=== PATIENT | male | born 1930 | race Caucasian/White ===

== ENCOUNTER 2016-06-26 09:11 | Emergency (ER) | payer MEDICARE ==
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
[2016-06-26] MEDS ORDERED: LIDOCAINE 1% INJ-PF (10 MG/ML) 30 ML SDV INJ ONE (10:30)
[2016-06-26] MEDS ORDERED: LIDOCAINE 1%/EPINEPHRINE INJ 20 ML VIAL INJ ONE (10:32)
[2016-06-26 10:42] LABS: ABSOLUTE EOSINOPHILS # (AUTO) 0.1 10^3/uL (0.0-0.6); ABSOLUTE LYMPHOCYTES (AUTO) 0.8 10^3/uL (0.5-4.7); ABSOLUTE MONOCYTES (AUTO) 0.5 10^3/uL (0.1-1.4); ABSOLUTE NEUT (AUTO) 6.7 10^3/uL (1.7-8.2); BASOPHILS % (AUTO) 0.2 % (0-2); EOSINOPHILS % (AUTO) 1.1 % (0-6); HEMATOCRIT 36.4 % (37.9-51.0); HEMOGLOBIN 11.8 g/dL (13.5-17.0); MEAN CORPUSCULAR HEMOGLOBIN 29.9 pg (27.0-33.4); MEAN CORPUSCULAR HGB CONC 32.4 g/dL (32.0-36.0); MEAN CORPUSCULAR VOLUME 93 fl (80-97); MONOCYTES % (AUTO) 6.7 % (3-13); RED BLOOD COUNT 3.93 10^6/uL (4.35-5.55); RED CELL DISTRIBUTION WIDTH 15.6 % (11.5-14.0); WHITE BLOOD COUNT 8.1 10^3/uL (4.0-10.5)
[2016-06-26 11:04] LABS: ANION GAP 12 (5-19); BLOOD UREA NITROGEN 45 mg/dL (7-20); CARBON DIOXIDE 21 mmol/L (22-30); CHLORIDE 113 mmol/L (98-107); CREATININE RESULT 2.34 mg/dL (0.52-1.25); GLUCOSE 77 mg/dL (75-110); POTASSIUM 4.2 mmol/L (3.6-5.0); SODIUM 145.9 mmol/L (137-145)
[2016-06-26 13:14] VITALS: BP 155/98
== END 2016-06-26 13:28 | disposition home or self-care (01) ==
LOC: ER 09:11
PROC: 0HQ0XZZ Repair Scalp Skin, External Approach (ICD-10-PCS; principal; 2016-06-26)
DX: S01.01XA Laceration without foreign body of scalp, initial encounter (principal); M25.511 Pain in right shoulder; W01.198A Fall on same level from slipping, tripping and stumbling with subsequent striking against other object, initial encounter; Y92.009 Unspecified place in unspecified non-institutional (private) residence as the place of occurrence of the external cause; M47.9 Spondylosis, unspecified; F03.90 Unspecified dementia, unspecified severity, without behavioral disturbance, psychotic disturbance, mood disturbance, and anxiety; I10 Essential (primary) hypertension; Z79.82 Long term (current) use of aspirin; Z23 Encounter for immunization
CPT/HCPCS: 99284; 36415; 85025; 80048; 73030; 70450; 72125; 12001; J3490

== ENCOUNTER 2016-07-01 11:46 | Inpatient (IN) | payer MEDICARE ==
[2016-06-30] MEDS: HEPARIN SOD (PORCINE) 5,000 UNIT/ML 1 ML SYRINGE SUBCUT SCH (23:30)
--- NOTE | 2016-07-01 13:01 | ER Document Report ---
ED General - General Time seen by provider: 12:50 Mode of Arrival: Wheelchair Information source: Patient, Relative TRAVEL OUTSIDE OF THE [place] IN LAST 30 DAYS: No - HPI Onset: Other - see history of present illness <FABIANO PANDEY - Last Filed: 07/01/16 13:24> <BREANNA HARRISON - Last Filed: 07/01/16 16:00> - General Chief Complaint: Fall Stated Complaint: FALL LEG PAIN Notes: Patient is an 85-year-old male presenting to the emergency department with family members with complaints of dark and bloody urine and edema to the lower extremities bilaterally. Patient was recently seen here on 03/10 and was admitted for a UTI and altered mental status. Patient was discharged and sent to [facility] for rehabilitation on 03/15. Patient was not happy due to the cost of [place] and family was working to transfer him to [facility]. Patient was waiting for a room at [place] and got tired of waiting so he signed himself out of [facility] and his family members took him home. Patient has resided at his house by himself for the past 20+ years since his . Patient has been at home for the past 2 weeks with family members checking in on him; patient has not been properly caring for himself, his hygiene, or for his legs. Patient was seen in the ED 5 days ago due to a fall that he had at his home; patient received sutures for a laceration to his head. Patient's family members would like him to go to [facility] because over the past couple of years his ability to care for himself has become less and less. Patient is slightly demented and has not been showering as frequent recently due to the condition of his lower extremities. Patient is also hard of hearing and patient's family members state that he refuses to wear his hearing aids. Patient's PCP is Dr. Dutta in [place]. Patient has no known allergies. (FABIANO PANDEY) - Related Data Allergies/Adverse Reactions: No Known Allergies Allergy (Unverified 09/22/10 10:45) Past Medical History - General Information source: Patient, Relative - Social History Smoking Status: Former Smoker Cigarette use (# per day): No Chew tobacco use (# tins/day): No Frequency of alcohol use: None Drug Abuse: None Family History: None - Past Medical History Cardiac Medical History: Reports: Hx Hypercholesterolemia, Hx Hypertension Pulmonary Medical History: Renal/ Medical History: Reports: Hx End Stage Renal Disease Musculoskeltal Medical History: Reports Hx Arthritis, Reports Hx Gout Past Surgical History: Reports: Hx Orthopedic Surgery - knee replacement b/l <FABIANO PANDEY Filed: 07/01/16 13:24> Review of Systems - Review of Systems Constitutional: No symptoms reported EENT: No symptoms reported Cardiovascular: No symptoms reported Respiratory: No symptoms reported Gastrointestinal: No symptoms reported Genitourinary: See HPI Male Genitourinary: No symptoms reported Musculoskeletal: See HPI Skin: See HPI Hematologic/Lymphatic: No symptoms reported Neurological/Psychological: See HPI, Dementia -: Yes All other systems reviewed and negative <FABIANO PANDEY Filed: 07/01/16 13:24> Physical Exam - Vital signs Interpretation: Normal - General General appearance: Appears well, Alert In distress: Mild - HEENT Head: Normocephalic, Atraumatic Eyes: Normal Pupils: PERRL Hearing loss: Left - supposed to wear hearing aid, Right Mucous membranes: Normal - Respiratory Respiratory status: No respiratory distress Chest status: Nontender Breath sounds: Normal Chest palpation: Normal - Cardiovascular Rhythm: Regular Heart sounds: Normal auscultation Murmur: No - Abdominal Inspection: Normal Distension: No distension Bowel sounds: Normal Tenderness: Nontender Organomegaly: No organomegaly - Back Back: Normal, Nontender - Extremities General upper extremity: Other - some arthritic changes to the fingers, wrists General lower extremity: Other - some arthritic changes to the knees; swelling and pain to the calfs bilaterally consistent with chronic edema and erythema- right leg is more swollen, more red, and has more sores than the left leg - Neurological Neuro grossly intact: Yes Cognition: Normal Vera Coma Scale Eye Opening: Spontaneous [place] Coma Scale Verbal: Oriented [place] Coma Scale Motor: Obeys Commands [place] Coma Scale Total: 15 Speech: Normal - Psychological Associated symptoms: Normal affect, Normal mood, Other - slightly demented - Skin Skin Temperature: Warm Skin Moisture: Dry Skin Color: Normal <FABIANO PANDEY Filed: 07/01/16 13:24> Course - Laboratory Result Diagrams: 07/01/16 12:42 07/01/16 12:42 <FABIANO PANDEY - Last Filed: 07/01/16 13:24> - Laboratory Result Diagrams: 07/01/16 12:42 07/01/16 12:42 - EKG Interpretation by Me EKG shows normal: Sinus rhythm, [place], Intervals, QRS Complexes, ST-T Waves Rate: Normal - 89 Rhythm: NSR, APC's [place]/QRS: LBBB When compared to previous EKG there are: No significant change - Consults Dr. Barrientos Time consulted: 15:55 Consulted provider: will come to ER <BREANNA HARRISON - Last Filed: 07/01/16 16:00> - Re-evaluation Re-evalutation: 07/01/16 15:44 The PCT reports he tried to do an in and out catheter to obtain a urine on this patient, that he had a large amount of blood coming out of the tube before it was in the bladder, he removed the tube and the patient began urinating first bloody, then it cleared up and a urine collection that appeared clear was obtained. It appears that a vessel in the urethra was traumatized and led to the bleeding most likely. The UA itself has 1 white blood cell, trace bacteria , 152 red cells and leukocyte esterase negative and nitrite negative. (BREANNA HARRISON) - Vital Signs Vital signs: Temp Pulse Resp BP Pulse Ox 98.4 F 79 166/82 H 99 07/01/16 12:41 07/01/16 12:41 07/01/16 12:41 07/01/16 12:41 (FABIANO PANDEY) (BREANNA HARRISON) - Laboratory Laboratory results interpreted by me: 07/01/16 07/01/16 07/01/16 12:42 12:42 13:40 RBC 3.70 L Hgb 10.7 L Hct 34.9 L MCHC 30.8 L RDW 15.5 H Sodium 145.1 H Chloride 113 H Carbon Dioxide 21 L BUN 38 H Creatinine 2.34 H Est GFR ( Amer) 32 L Est GFR (Non-Af Amer) 27 L ALT 19 L Total Protein 6.1 L Albumin 2.9 L Urine Protein 30 H Urine Blood LARGE H (BREANNA HARRISON) Discharge <FABIANO PANDEY - Last Filed: 07/01/16 13:24> - Discharge Admitting Provider: Hospitalist Unit Admitted: Medical Floor <BREANNA HARRISON - Last Filed: 07/01/16 16:00> - Discharge Clinical Impression: CKD (chronic kidney disease) stage 4, GFR 15-29 ml/min Cellulitis Qualifiers: Site of cellulitis: extremity Site of cellulitis of extremity: lower extremity Laterality: right Qualified Code(s): L03.115 - Cellulitis of right lower limb Dementia Qualifiers: Dementia type: unspecified type Dementia behavioral disturbance: without behavioral disturbance Qualified Code(s): F03.90 - Unspecified dementia without behavioral disturbance Condition: Stable Disposition: ADMITTED INPATIENT Referrals: LUI DUTTA MD [Primary Care Provider] - Follow up as needed Scribe Attestation: 07/01/16 16:00 I personally performed the services described in the documentation, reviewed and edited the documentation which was dictated to the scribe in my presence, and it accurately records my words and actions. (BREANNA HARRISON) Scribe Documentation <FABIANO PANDEY - Last Filed: 07/01/16 13:24> <BREANNA HARRISON - Last Filed: 07/01/16 16:00> - Scribe Written by Scribe:: BREANNA HARRISON MD, SCRIBE 07/01/16 [id number] Acting as scribe for: Dr. Harrison (FABIANO PANDEY) (BREANNA HARRISON)
[2016-07-01 13:18] LABS: ABSOLUTE EOSINOPHILS # (AUTO) 0.1 10^3/uL (0.0-0.6); ABSOLUTE LYMPHOCYTES (AUTO) 1.3 10^3/uL (0.5-4.7); ABSOLUTE MONOCYTES (AUTO) 0.8 10^3/uL (0.1-1.4); ABSOLUTE NEUT (AUTO) 5.4 10^3/uL (1.7-8.2); BASOPHILS % (AUTO) 0.3 % (0-2); EOSINOPHILS % (AUTO) 1.6 % (0-6); HEMATOCRIT 34.9 % (37.9-51.0); HEMOGLOBIN 10.7 g/dL (13.5-17.0); HGB HCT DIFFERENCE -2.8; LYMPHOCYTES % (AUTO) 16.6 % (13-45); MEAN CORPUSCULAR HGB CONC 30.8 g/dL (32.0-36.0); MEAN CORPUSCULAR VOLUME 94 fl (80-97); MONOCYTES % (AUTO) 10.2 % (3-13); RED CELL DISTRIBUTION WIDTH 15.5 % (11.5-14.0); SEGMENTED NEUTROPHILS % (AUTO) 71.3 % (42-78); WHITE BLOOD COUNT 7.6 10^3/uL (4.0-10.5)
[2016-07-01 13:38] LABS: ALANINE AMINOTRANSFERASE 19 U/L (21-72); ALBUMIN 2.9 g/dL (3.5-5.0); ALKALINE PHOSPHATASE 87 U/L (38-126); ANION GAP 11 (5-19); ASPARTATE AMINO TRANSFERASE 25 U/L (17-59); BILIRUBIN,TOTAL 0.5 mg/dL (0.2-1.3); BLOOD UREA NITROGEN 38 mg/dL (7-20); CALCIUM 8.5 mg/dL (8.4-10.2); CARBON DIOXIDE 21 mmol/L (22-30); CHLORIDE 113 mmol/L (98-107); CREATINE KINASE 164 U/L (55-170); CREATININE RESULT 2.34 mg/dL (0.52-1.25); GLUCOSE 96 mg/dL (75-110); POTASSIUM 3.8 mmol/L (3.6-5.0); SODIUM 145.1 mmol/L (137-145); TOTAL PROTEIN 6.1 g/dL (6.3-8.2)
[2016-07-01 14:14] LABS: APPEARANCE,URINE SLIGHTLY-CLOUDY; BILIRUBIN,URINE NEGATIVE (NEGATIVE); GLUCOSE, URINE NEGATIVE (NEGATIVE); KETONES,URINE NEGATIVE (NEGATIVE); LEUKOCYTE ESTERASE,URINE NEGATIVE (NEGATIVE); NITRITE,URINE NEGATIVE (NEGATIVE); PROTEIN,URINE 30 mg/dL (NEGATIVE); URINE SPECIFIC GRAVITY 1.015; UROBILINOGEN,URINE NEGATIVE mg/dL (<2.0)
[2016-07-01] MEDS ORDERED: MORPHINE SULFATE 10 MG/ML INJ IV ONE (14:35)
[2016-07-01] MEDS ORDERED: ONDANSETRON HCL INJ/PF 4 MG/2 ML SDV IV ONE (14:35)
[2016-07-01] MEDS ORDERED: CLINDAMYCIN 300 MG/D5W RTU 50 ML IV ONE (15:57)
[2016-07-01] MEDS ORDERED: HYDRALAZINE HCL INJ/PF 20 MG/1 ML SDV IV PRN (16:55)
[2016-07-01] MEDS ORDERED: ONDANSETRON HCL INJ/PF 4 MG/2 ML SDV IV PRN (16:59)
[2016-07-01] MEDS ORDERED: ACETAMINOPHEN 325 MG TABLET PO PRN (16:59)
--- NOTE | 2016-07-01 17:17 | PDOC H&P ---
History of Present Illness Admission Date/PCP: 07/01/16 16:19 LUI DUTTA MD Patient complains of: Bilateral leg pain History of Present Illness: TERE QUEEN is a 85 year old male that presents with bilateral lower extremity pain and swelling. It is unclear how long this is been going on as patient has profound hearing loss and dementia and does not provide adequate history. Family is not present. According to emergency department provider he found that patient has been living alone and family was concerned about the situation and was looking for assisted living facility. It is noted that patient sustained a fall on 06/26/2016 with a scalp contusion/ laceration. He has gosia in place. Medications listed below have not been verified at the time of this documentation. Past Medical History Cardiac Medical History: Reports: Hyperlipidema, Hypertension Pulmonary Medical History: Neurological Medical History: Denies: Seizures Renal/ Medical History: Reports: Chronic Kidney Disease - Stage IV Musculoskeltal Medical History: Reports: Arthritis, Gout Psychiatric Medical History: Reports: Dementia Denies: Depression Hematology: Denies: Anemia, Hemophilia, Sickle Cell Disease Past Surgical History Past Surgical History: Reports: Orthopedic Surgery - knee replacement b/l Social History Information Source: Patient, Emergency Med Personnel, [facility] Records Smoking Status: Former Smoker Frequency of Alcohol Use: None Hx Recreational Drug Use: No Drugs: None Hx Prescription Drug Abuse: No - Advance Directive Resuscitation Status: Full Code Surrogate healthcare decision maker:: Albertina Lopez Family History Family History: None Parental Family History Reviewed: Yes Children Family History Reviewed: Yes Sibling(s) Family History Reviewed.: Yes Medication/Allergy Home Medications: Atorvastatin Calcium [Lipitor] 10 mg PO QHS 07/27/15 Cholecalciferol (Vitamin D3) [Vitamin D3] 1,000 unit PO DAILY 07/27/15 Ferrous Sulfate [Iron] 325 mg PO DAILY 07/27/15 Tamsulosin HCl [Flomax 0.4 mg Cap.sr] 0.4 mg PO QHS 07/27/15 Torsemide [Demadex 20 mg Tablet] 10 mg PO DAILY tablet 08/02/15 Quetiapine Fumarate 25 mg PO QHS 03/10/16 Allopurinol [Zyloprim 300 mg Tablet] 100 mg PO DAILY #30 tablet 03/14/16 Amlodipine Besylate [Norvasc 2.5 mg Tablet] 2.5 mg PO DAILY #30 tablet 03/14/16 Aspirin [Ecotrin 325 mg EC Tablet] 81 mg PO DAILY #0 tabec 03/14/16 Calcitriol [Rocaltrol 0.25 mcg Capsule] 0.5 mcg PO MoWeFr@1000 #90 capsule 03/14 Cephalexin Monohydrate [Keflex 500 mg Capsule] 500 mg PO Q8 #30 capsule Cyanocobalamin (Vitamin B-12) [Vitamin B-12] 1,000 mcg PO DAILY #30 tablet.er Allergies/Adverse Reactions: No Known Allergies Allergy (Unverified 09/22/10 10:45) Review of Systems Constitutional: ABSENT: chills, fever(s), headache(s), weight gain, weight loss Eyes: ABSENT: visual disturbances Ears: PRESENT: hearing changes - Significant hearing impairment Cardiovascular: PRESENT: edema. ABSENT: chest pain, dyspnea on exertion, orthropnea, palpitations Respiratory: ABSENT: cough, hemoptysis Gastrointestinal: ABSENT: abdominal pain, constipation, diarrhea, hematemesis, hematochezia, nausea, vomiting Genitourinary: ABSENT: dysuria, hematuria Musculoskeletal: ABSENT: joint swelling Integumentary: PRESENT: erythema - Bilateral lower extremities, wounds - Multiple excoriated lesions on bilateral lower extremities. ABSENT: rash Neurological: ABSENT: abnormal gait, abnormal speech, confusion, dizziness, focal weakness, syncope Psychiatric: ABSENT: anxiety, depression, homidical ideation, suicidal ideation Endocrine: ABSENT: cold intolerance, heat intolerance, polydipsia, polyuria Hematologic/Lymphatic: ABSENT: easy bleeding, easy bruising Physical Exam Vital Signs: Temp Pulse Resp BP Pulse Ox 99.0 F 84 20 165/81 H 96 07/01/16 16:32 07/01/16 16:32 07/01/16 16:32 07/01/16 16:32 07/01/16 16:32 PHYSICAL EXAM: GENERAL: Appears well, no acute distress, extremely hard of hearing HEENT: Normocephalic, no scleral icterus, conjunctiva clear, EOEM intact, PERRLA , moist mucous membranes NECK: trachea midline, no thyromegally RESPIRATORY: Clear to auscultation, no wheezes/rhonchi CARDIAC: Irregularly irregular ABDOMEN: Soft, no distension, no tenderness, no guarding, normal bowel sounds, negative Anderson sign RECTAL: deferred : deferred EXTREMITIES: Pitting edema and bilateral lower extremities MUSCULOSKELETAL: No joint swelling or deformity VASCULAR: normal peripheral pulses NEUROLOGIC: Alert, oriented to person only, normal speech, cranial nerves grossly intact, 5/5 strength in all extremities, tactile sensation intact in all extremities SKIN: Erythema in bilateral lower extremities distal to the knees, multiple excoriated lesions on bilateral lower extremities PSYCHIATRIC: Normal mood, normal affect Results Laboratory Results: Labs- All tests 24 hr 07/01/16 07/01/16 07/01/16 12:42 12:42 12:42 WBC 7.6 RBC 3.70 L Hgb 10.7 L Hct 34.9 L MCV 94 MCH 29.0 MCHC 30.8 L RDW 15.5 H Plt Count 187 Seg Neutrophils % 71.3 Lymphocytes % 16.6 Monocytes % 10.2 Eosinophils % 1.6 Basophils % 0.3 Absolute Neutrophils 5.4 Absolute Lymphocytes 1.3 Absolute Monocytes 0.8 Absolute Eosinophils 0.1 Absolute Basophils 0.0 Sodium 145.1 H Potassium 3.8 Chloride 113 H Carbon Dioxide 21 L Anion Gap 11 BUN 38 H Creatinine 2.34 H Est GFR ( Amer) 32 L Est GFR (Non-Af Amer) 27 L Glucose 96 Calcium 8.5 Total Bilirubin 0.5 Direct Bilirubin 0.0 AST 25 ALT 19 L Alkaline Phosphatase 87 Creatine Kinase 164 Troponin I 0.036 Total Protein 6.1 L Albumin 2.9 L Urine Color Urine Appearance Urine pH Ur Specific [place] Urine Protein Urine Glucose (UA) Urine Ketones Urine Blood Urine Nitrite Urine Bilirubin Urine Urobilinogen Ur Leukocyte Esterase Urine WBC (Auto) Urine RBC (Auto) Urine Bacteria (Auto) Squamous Epi Cells Auto Urine Mucus (Auto) Urine Ascorbic Acid 07/01/16 13:40 WBC RBC Hgb Hct MCV MCH MCHC RDW Plt Count Seg Neutrophils % Lymphocytes % Monocytes % Eosinophils % Basophils % Absolute Neutrophils Absolute Lymphocytes Absolute Monocytes Absolute Eosinophils Absolute Basophils Sodium Potassium Chloride Carbon Dioxide Anion Gap BUN Creatinine Est GFR ( Amer) Est GFR (Non-Af Amer) Glucose Calcium Total Bilirubin Direct Bilirubin AST ALT Alkaline Phosphatase Creatine Kinase Troponin I Total Protein Albumin Urine Color YELLOW Urine Appearance SLIGHTLY-CLOUDY Urine pH 5.0 Ur Specific [place] 1.015 Urine Protein 30 H Urine Glucose (UA) NEGATIVE Urine Ketones NEGATIVE Urine Blood LARGE H Urine Nitrite NEGATIVE Urine Bilirubin NEGATIVE Urine Urobilinogen NEGATIVE Ur Leukocyte Esterase NEGATIVE Urine WBC (Auto) 1 Urine RBC (Auto) 152 Urine Bacteria (Auto) TRACE Squamous Epi Cells Auto <1 Urine Mucus (Auto) RARE Urine Ascorbic Acid NEGATIVE EKG Comments: Atrial fibrillation, left bundle branch block Assessment & Plan - Diagnosis (1) SIRS (systemic inflammatory response syndrome) Is this a current diagnosis for this admission?: YesPlan: Secondary to bilateral lower extremity cellulitis. (2) Cellulitis Qualifiers: Site of cellulitis: extremity Site of cellulitis of extremity: lower extremity Laterality: right Qualified Code(s): L03.115 - Cellulitis of right lower limb Is this a current diagnosis for this admission?: YesPlan: Patient will be continued on IV clindamycin initiated in the emergency department. Would like to check bilateral lower extremity Doppler to rule out DVT. (3) Bilateral lower extremity edema Is this a current diagnosis for this admission?: YesPlan: Check proBNP level, echocardiogram, bilateral lower extremity Dopplers. Start Lasix 20 mg IV every 12 hours. (4) Chronic atrial fibrillation Is this a current diagnosis for this admission?: YesPlan: Heart rate stable. Verify home medications and resume. (5) Dementia Qualifiers: Dementia type: unspecified type Dementia behavioral disturbance: without behavioral disturbance Qualified Code(s): F03.90 - Unspecified dementia without behavioral disturbance Is this a current diagnosis for this admission?: YesPlan: Continue supportive care. Patient has been residing at home. According to emergency department staff family is looking for assisted living facility. I will consult social studies department chair. (6) Laceration of head Qualifiers: Encounter type: initial encounter Location of open wound of head: scalp Foreign body presence: without foreign body Qualified Code(s): S01.01XA - Laceration without foreign body of scalp, initial encounter Is this a current diagnosis for this admission?: YesPlan: Patient had gosia placed on 06/26/2016. Staple removal on 07/06/2016. (7) Vitamin B 12 deficiency Is this a current diagnosis for this admission?: YesPlan: Check B-12 level in the morning. (8) CKD (chronic kidney disease) stage 4, GFR 15-29 ml/min Is this a current diagnosis for this admission?: YesPlan: Kidney functions at baseline. Monitor closely with diuresis. (9) Hypertension Is this a current diagnosis for this admission?: YesPlan: Verify home medications and resume. When necessary IV hydralazine. (10) Full code status Is this a current diagnosis for this admission?: Yes - Time Time Spent: Greater than 70 Minutes Anticipated discharge: Other - Assisted living facility
--- NOTE | 2016-07-01 18:35 | EKG REPORT ---
SEVERITY:- ABNORMAL ECG - ATRIAL FIBRILLATION LEFT BUNDLE BRANCH BLOCK INFERIOR Q WAVES, POSSIBLY DUE TO LBBB : Confirmed by: Lavonne Hercules MD 01-Jul-2016 18:34:11
[2016-07-01] MEDS: FUROSEMIDE INJ/PF 20 MG/2 ML SDV IV SCH (23:03)
[2016-07-02 05:04] LABS: ABSOLUTE EOSINOPHILS # (AUTO) 0.4 10^3/uL (0.0-0.6); ABSOLUTE LYMPHOCYTES (AUTO) 1.8 10^3/uL (0.5-4.7); ABSOLUTE MONOCYTES (AUTO) 0.9 10^3/uL (0.1-1.4); ABSOLUTE NEUT (AUTO) 4.9 10^3/uL (1.7-8.2); BASOPHILS % (AUTO) 0.4 % (0-2); HEMATOCRIT 32.2 % (37.9-51.0); HEMOGLOBIN 10.2 g/dL (13.5-17.0); HGB HCT DIFFERENCE -1.6; LYMPHOCYTES % (AUTO) 21.9 % (13-45); MEAN CORPUSCULAR HEMOGLOBIN 29.6 pg (27.0-33.4); MEAN CORPUSCULAR HGB CONC 31.6 g/dL (32.0-36.0); MEAN CORPUSCULAR VOLUME 94 fl (80-97); MONOCYTES % (AUTO) 11.5 % (3-13); RED BLOOD COUNT 3.43 10^6/uL (4.35-5.55); RED CELL DISTRIBUTION WIDTH 15.6 % (11.5-14.0); SEGMENTED NEUTROPHILS % (AUTO) 61.2 % (42-78)
[2016-07-02 05:30] LABS: ANION GAP 10 (5-19); BLOOD UREA NITROGEN 35 mg/dL (7-20); CALCIUM 8.4 mg/dL (8.4-10.2); CARBON DIOXIDE 20 mmol/L (22-30); CHLORIDE 115 mmol/L (98-107); GLUCOSE 80 mg/dL (75-110); POTASSIUM 3.6 mmol/L (3.6-5.0); SODIUM 145.2 mmol/L (137-145)
[2016-07-02] MEDS ORDERED: CLINDAMYCIN 300 MG/D5W RTU 300 MG/50 ML RTUPB IV ONE (05:56)
[2016-07-02] MEDS: HEPARIN SOD (PORCINE) 5,000 UNIT/ML 1 ML SYRINGE SUBCUT SCH ×3 (06:29→23:27)
[2016-07-02] MEDS: CLINDAMYCIN 300 MG/D5W RTU 300 MG/50 ML RTUPB IV SCH ×3 (06:30→23:27)
[2016-07-02] MEDS: FUROSEMIDE INJ/PF 20 MG/2 ML SDV IV SCH ×2 (09:17→23:19)
--- NOTE | 2016-07-02 13:40 | XCELERA REPORT ---
[address] [address] Transthoracic Echocardiogram Report Name: TERE QUEEN Age: 85 yrs Gender: Male : 1930 Patient Status: Inpatient Patient Location: [id number] Study Date: 07/02/2016 10:40 AM Height: 72 in Weight: 174 lb BSA: 2.0 m2 Procedure: A complete two-dimensional transthoracic echocardiogram was performed (2D, M-mode, spectral and color flow Doppler). The study was technically adequate with some images being suboptimal in quality. Reason For Study: edema Ordering Physician: AMILCAR BROWN Performed By: Robbie Franz Interpretation Summary The left ventricular ejection fraction is normal. Doppler measurements suggest pseudonormalized left ventricular relaxation, which is associated with grade II/IV or mild to moderate diastolic dysfunction There is mild concentric left ventricular hypertrophy. The left ventricle is grossly normal size. Wall motion cannot be accurately commented on, but no definite regional wall motion abnormalities noted. The right ventricular systolic function is normal. The right atrium is normal in size The left atrium is mildly dilated. There is no mitral valve stenosis. There is a trace amount of mitral regurgitation There is no aortic valve stenosis There is a mild amount of aortic regurgitation There is a trace to mild amount of tricuspid regurgitation There is mild pulmonary hypertension by echo Right ventricular systolic pressure is estimated to be elevated at 30- 40mmHg. The aortic root is not well visualized but is probably normal size. The inferior vena cava appeared dilated and decreased < 50% with respiration (RAP 15-20 mmHg) Minimal pericardial effusion. MMode/2D Measurements \T\ Calculations RVDd: 3.1 cm LVIDd: 4.7 cm FS: 33.7 % Ao root diam: 3.8 cm IVSd: 1.3 cm LVIDs: 3.1 cm EDV(Teich): 99.9 ml LVPWd: 1.4 cm ESV(Teich): 37.4 ml Ao root area: 11.4 cm2 EF(Teich): 62.5 % LA dimension: 3.8 cm Doppler Measurements \T\ Calculations MV E max mayank: MV P1/2t max mayank: Ao V2 max: AI max mayank: 99.3 cm/sec 101.8 cm/sec 168.9 cm/sec 406.0 cm/sec MV A max mayank: MV P1/2t: 90.8 msec Ao max PG: AI max P.1 cm/sec 11.4 mmHg 66.2 mmHg MV E/A: 0.71 MVA(P1/2t): 2.4 cm2 AI dec slope: MV dec slope: 328.3 cm/sec2 246.8 cm/sec2 MV dec time: AI P1/2t: 0.30 sec 481.7 msec LV V1 max PG: PA V2 max: PI end-d mayank: TR max mayank: 7.4 mmHg 100.6 cm/sec 111.0 cm/sec 244.9 cm/sec LV V1 max: PA max P.0 mmHg TR max P.7 cm/sec 24.0 mmHg RVSP(TR): 34.0 mmHg RAP systole: 10.0 mmHg Left Ventricle The left ventricle is grossly normal size. There is mild concentric left ventricular hypertrophy. The left ventricular ejection fraction is normal. Doppler measurements suggest pseudonormalized left ventricular relaxation, which is associated with grade II/IV or mild to moderate diastolic dysfunction. Wall motion cannot be accurately commented on, but no definite regional wall motion abnormalities noted. Right Ventricle The right ventricle is normal in size, thickness and function. There is normal right ventricular wall thickness. The right ventricular systolic function is normal. Atria The right atrium is normal in size. The left atrium is mildly dilated. Interarterial septum not well visualized and not well dopplered. Cannot comment on ASD/PFO presence. Mitral Valve The mitral valve is grossly normal. There is no mitral valve stenosis. There is a trace amount of mitral regurgitation. Aortic Valve The aortic valve is mildly calcified. There is no aortic valve stenosis. There is a mild amount of aortic regurgitation. Tricuspid Valve The tricuspid valve is not well visualized, but is grossly normal. There is no tricuspid stenosis. There is a trace to mild amount of tricuspid regurgitation. There is mild pulmonary hypertension by echo. Right ventricular systolic pressure is estimated to be elevated at 30-40mmHg. Pulmonic Valve The pulmonic valve is not well visualized. Great Vessels The aortic root is not well visualized but is probably normal size. The inferior vena cava appeared dilated and decreased < 50% with respiration (RAP 15-20 mmHg). Effusions Minimal pericardial effusion. : AMILCAR BRWON > Eleazar Bhatti
[2016-07-02] MEDS ORDERED: HYDROCODONE/ACETAMINOPHEN 7.5-325 MG TABLET PO PRN ×2 (15:34→16:31)
--- NOTE | 2016-07-02 17:10 | PDOC PROGRESS REPORT ---
Subjective Progress Note for:: 07/02/16 Subjective:: No issues reported. Patient with no complaints, however review of systems difficult secondary to significant hearing impairment. Physical Exam Vital Signs: Temp Pulse Resp BP Pulse Ox 98.1 F 66 16 165/86 H 100 07/02/16 13:06 07/02/16 13:06 07/02/16 13:06 07/02/16 13:06 07/02/16 13:06 Intake & Output 07/01/16 07/02/16 07/03/16 06:59 06:59 06:59 Intake Total 50 717 Balance 50 717 Weight 79.1 kg GENERAL: Appears well, no acute distress, extremely hard of hearing HEENT: Normocephalic, moist mucous membranes NECK: trachea midline, no thyromegally RESPIRATORY: Clear to auscultation, no wheezes/rhonchi CARDIAC: Irregularly irregular ABDOMEN: Soft, no distension, no tenderness, no guarding, normal bowel sounds, negative Anderson sign EXTREMITIES: Pitting edema and bilateral lower extremities MUSCULOSKELETAL: No joint swelling or deformity VASCULAR: normal peripheral pulses NEUROLOGIC: Alert, oriented to person only, normal speech, cranial nerves grossly intact, 5/5 strength in all extremities, tactile sensation intact in all extremities SKIN: Erythema in bilateral lower extremities distal to the knees, multiple excoriated lesions on bilateral lower extremities PSYCHIATRIC: Normal mood, normal affect Results Laboratory Results: 07/02/16 04:44 07/02/16 04:44 07/02/16 07/02/16 07/02/16 04:44 04:44 04:44 WBC 8.0 RBC 3.43 L Hgb 10.2 L Hct 32.2 L MCV 94 MCH 29.6 MCHC 31.6 L RDW 15.6 H Plt Count 180 Seg Neutrophils % 61.2 Lymphocytes % 21.9 Monocytes % 11.5 Eosinophils % 5.0 Basophils % 0.4 Absolute Neutrophils 4.9 Absolute Lymphocytes 1.8 Absolute Monocytes 0.9 Absolute Eosinophils 0.4 Absolute Basophils 0.0 Sodium 145.2 H Potassium 3.6 Chloride 115 H Carbon Dioxide 20 L Anion Gap 10 BUN 35 H Creatinine 2.20 H Est GFR ( Amer) 35 L Est GFR (Non-Af Amer) 29 L Glucose 80 Calcium 8.4 Vitamin B12 > 1000.0 H TSH 2.97 Impressions: Venous Doppler Study 07/01/16 00:00 IMPRESSION: NO EVIDENCE DVT OR SVT IN EITHER LEG. Chest X-Ray 07/01/16 16:56 IMPRESSION: Low lung volumes results in bronchovascular crowding. No focal consolidation. Grossly stable radiographic appearance of the chest. Assessment & Plan - Diagnosis (1) SIRS (systemic inflammatory response syndrome) Is this a current diagnosis for this admission?: YesPlan: Secondary to bilateral lower extremity cellulitis. (2) Cellulitis Qualifiers: Site of cellulitis: extremity Site of cellulitis of extremity: lower extremity Laterality: right Qualified Code(s): L03.115 - Cellulitis of right lower limb Is this a current diagnosis for this admission?: YesPlan: Continue IV clindamycin. Possibly convert to oral clindamycin in the next few days. Bilateral lower extremity Dopplers negative for DVT. (3) Acute diastolic (congestive) heart failure Is this a current diagnosis for this admission?: YesPlan: Echocardiogram shows normal ejection fraction, grade 2/4 diastolic dysfunction. Continue Lasix 20 mg IV every 12 hours. Start Coreg 6.25 mg twice daily. Monitor I/O. Monitor daily weight. (4) Bilateral lower extremity edema Is this a current diagnosis for this admission?: YesPlan: Secondary to acutely decompensated congestive heart failure. Continue Lasix 20 mg IV every 12 hours. (5) Chronic atrial fibrillation Is this a current diagnosis for this admission?: YesPlan: Heart rate stable. Continue aspirin. Patient would not make a good candidate for anticoagulation secondary to age, comorbid conditions, history of recent falls. (6) Dementia Qualifiers: Dementia type: unspecified type Dementia behavioral disturbance: without behavioral disturbance Qualified Code(s): F03.90 - Unspecified dementia without behavioral disturbance Is this a current diagnosis for this admission?: YesPlan: Continue supportive care. Patient has been residing at home. Family would like snf facility for rehabilitation. (7) Laceration of head Qualifiers: Encounter type: initial encounter Location of open wound of head: scalp Foreign body presence: without foreign body Qualified Code(s): S01.01XA - Laceration without foreign body of scalp, initial encounter Is this a current diagnosis for this admission?: YesPlan: Patient will need staple removal on 07/06/2016. (8) Vitamin B 12 deficiency Is this a current diagnosis for this admission?: YesPlan: Resume oral B-12 supplementation. (9) CKD (chronic kidney disease) stage 4, GFR 15-29 ml/min Is this a current diagnosis for this admission?: YesPlan: Kidney functions at baseline. Monitor closely with diuresis. (10) Hypertension Is this a current diagnosis for this admission?: YesPlan: Resume Norvasc 2.5 mg daily. Start Coreg 6.25 mg twice daily. When necessary IV hydralazine. (11) Full code status Is this a current diagnosis for this admission?: Yes - Time Time Spent with patient: 35 or more minutes Anticipated discharge: Acute Rehab Within: within 72 hours
[2016-07-02] MEDS: TEMAZEPAM 15 MG CAPSULE PO SCH (23:17)
[2016-07-02] MEDS: TAMSULOSIN HCL 0.4 MG CAP.SR.24H PO SCH (23:18)
[2016-07-02] MEDS: CARVEDILOL 6.25 MG TABLET PO SCH (23:18)
[2016-07-02] MEDS: ATORVASTATIN CALCIUM 10 MG TABLET PO SCH (23:19)
[2016-07-03 05:12] LABS: ABSOLUTE EOSINOPHILS # (AUTO) 0.5 10^3/uL (0.0-0.6); ABSOLUTE NEUT (AUTO) 4.4 10^3/uL (1.7-8.2); BASOPHILS % (AUTO) 0.6 % (0-2); EOSINOPHILS % (AUTO) 6.8 % (0-6); HEMATOCRIT 36.1 % (37.9-51.0); HEMOGLOBIN 11.4 g/dL (13.5-17.0); HGB HCT DIFFERENCE -1.9; LYMPHOCYTES % (AUTO) 25.2 % (13-45); MEAN CORPUSCULAR HEMOGLOBIN 29.5 pg (27.0-33.4); MEAN CORPUSCULAR HGB CONC 31.5 g/dL (32.0-36.0); MEAN CORPUSCULAR VOLUME 94 fl (80-97); MONOCYTES % (AUTO) 12.1 % (3-13); RED BLOOD COUNT 3.86 10^6/uL (4.35-5.55); RED CELL DISTRIBUTION WIDTH 15.6 % (11.5-14.0); SEGMENTED NEUTROPHILS % (AUTO) 55.3 % (42-78)
[2016-07-03 05:38] LABS: ANION GAP 12 (5-19); BLOOD UREA NITROGEN 38 mg/dL (7-20); CALCIUM 8.1 mg/dL (8.4-10.2); CARBON DIOXIDE 22 mmol/L (22-30); CHLORIDE 109 mmol/L (98-107); GLUCOSE 83 mg/dL (75-110); POTASSIUM 3.6 mmol/L (3.6-5.0)
[2016-07-03] MEDS: CLINDAMYCIN 300 MG/D5W RTU 300 MG/50 ML RTUPB IV SCH (06:37)
[2016-07-03] MEDS: HEPARIN SOD (PORCINE) 5,000 UNIT/ML 1 ML SYRINGE SUBCUT SCH ×3 (06:40→23:00)
[2016-07-03] MEDS ORDERED: (PENDING PHARMACY ID) (Ferrous Sulfate [Iron] 325 MG) PO SCH (10:00)
[2016-07-03] MEDS ORDERED: ALLOPURINOL 300 MG TABLET PO SCH (10:00)
[2016-07-03] MEDS ORDERED: AMLODIPINE BESYLATE 2.5 MG TABLET PO SCH (10:00)
[2016-07-03] MEDS: ALLOPURINOL 100 MG TABLET PO SCH (11:08)
[2016-07-03] MEDS: ASPIRIN 81 MG TABLET, ENT COATED PO SCH (11:08)
[2016-07-03] MEDS: FERROUS SULFATE 325 MG TABLET PO SCH (11:08)
[2016-07-03] MEDS: FUROSEMIDE INJ/PF 20 MG/2 ML SDV IV SCH (11:09)
[2016-07-03] MEDS: CYANOCOBALAMIN (VITAMIN B-12) 1,000 MCG TABLET PO SCH (11:09)
[2016-07-03] MEDS: CARVEDILOL 6.25 MG TABLET PO SCH ×2 (11:09→22:59)
[2016-07-03] MEDS ORDERED: BISACODYL 10 MG SUPP.RECT PR PRN (12:30)
[2016-07-03] MEDS ORDERED: AMLODIPINE BESYLATE 5 MG TABLET PO ONE (12:30)
[2016-07-03] MEDS ORDERED: POTASSIUM CHLORIDE 10 MEQ TABLET.SA PO ONE (12:30)
[2016-07-03] MEDS ORDERED: LIDOCAINE 1% INJ (10 MG/ML) 10 ML MDV INJ ONE (13:30)
[2016-07-03] MEDS ORDERED: DOCUSATE SODIUM 100 MG CAPSULE PO ONE (14:00)
[2016-07-03] MEDS ORDERED: BACITRACIN ZINC OINTMENT 15 GM TP ONE (14:00)
[2016-07-03] MEDS ORDERED: LIDOCAINE 1% INJ-PF (10 MG/ML) 30 ML SDV INJ PRN (14:52)
[2016-07-03] MEDS: CLINDAMYCIN HCL 150 MG CAPSULE PO SCH (17:20)
[2016-07-03] MEDS: DOCUSATE SODIUM 100 MG CAPSULE PO SCH (17:21)
[2016-07-03] MEDS: BACITRACIN ZINC OINTMENT 15 GM TP SCH (17:21)
[2016-07-03] MEDS: LACTOBACILLUS ACIDOPHILUS 250 MG TAB PO SCH (17:21)
[2016-07-03] MEDS: TAMSULOSIN HCL 0.4 MG CAP.SR.24H PO SCH (22:59)
[2016-07-03] MEDS: TEMAZEPAM 15 MG CAPSULE PO SCH (22:59)
[2016-07-03] MEDS: ATORVASTATIN CALCIUM 10 MG TABLET PO SCH (22:59)
[2016-07-03] MEDS: SENNOSIDES/DOCUSATE 8.6-50 MG 1 EACH TABLET PO SCH (23:05)
--- NOTE | 2016-07-04 00:03 | PDOC PROGRESS REPORT ---
Subjective Progress Note for:: 07/03/16 Subjective:: Patient notes his laceration to the scalp. Unable to obtain full review of systems secondary to patient's hearing status. But he denies chest pain, shortness of breath, and constipation. Physical Exam Vital Signs: Temp Pulse Resp BP Pulse Ox 98.3 F 63 18 153/80 H 100 07/02/16 23:42 07/03/16 07:00 07/02/16 23:42 07/03/16 01:51 07/02/16 23:42 Intake & Output 07/02/16 07/03/16 07/04/16 06:59 06:59 06:59 Intake Total 50 1527 Balance 50 1527 Weight 79.1 kg 79 kg Exam: GENERAL: Appears well, no acute distress, extremely hard of hearing HEENT: Patient has large hematoma/dried blood on right parietal scalp, Normocephalic, moist mucous membranes NECK: trachea midline, no JVD RESPIRATORY: Clear to auscultation, no wheezes/rhonchi/rales CARDIAC: Irregularly irregular ABDOMEN: Soft, no distension, no tenderness, no guarding, normal bowel sounds, negative Anderson sign EXTREMITIES: 2+ bilateral lower extremity edema NEUROLOGIC: Alert, oriented x2, normal speech, cranial nerves grossly intact SKIN: Erythema in bilateral lower extremities distal to the knees, multiple excoriated lesions on bilateral lower extremities PSYCHIATRIC: Normal mood, normal affect Results Laboratory Results: 07/03/16 04:36 07/03/16 04:36 07/03/16 07/03/16 04:36 04:36 WBC 8.0 RBC 3.86 L Hgb 11.4 L Hct 36.1 L MCV 94 MCH 29.5 MCHC 31.5 L RDW 15.6 H Plt Count 195 Seg Neutrophils % 55.3 Lymphocytes % 25.2 Monocytes % 12.1 Eosinophils % 6.8 H Basophils % 0.6 Absolute Neutrophils 4.4 Absolute Lymphocytes 2.0 Absolute Monocytes 1.0 Absolute Eosinophils 0.5 Absolute Basophils 0.0 Sodium 143.0 Potassium 3.6 Chloride 109 H Carbon Dioxide 22 Anion Gap 12 BUN 38 H Creatinine 2.10 H Est GFR ( Amer) 37 L Est GFR (Non-Af Amer) 30 L Glucose 83 Calcium 8.1 L 07/03/16 04:36 NT-Pro-B Natriuret Pep 24975 H Impressions: Venous Doppler Study 07/01/16 00:00 IMPRESSION: NO EVIDENCE DVT OR SVT IN EITHER LEG. Chest X-Ray 07/01/16 16:56 IMPRESSION: Low lung volumes results in bronchovascular crowding. No focal consolidation. Grossly stable radiographic appearance of the chest. Assessment & Plan - Diagnosis (1) Advanced dementia Is this a current diagnosis for this admission?: YesPlan: This patient will require placement (2) Acute diastolic (congestive) heart failure Is this a current diagnosis for this admission?: YesPlan: Transition to oral Lasix. Continue on Coreg, no need for Raghavendra/ARB at this time. Monitor I's and O's. Monitor daily weight. EF is found to be normal with a grade 2 over 4 diastolic dysfunction. (3) Bilateral lower extremity edema Is this a current diagnosis for this admission?: YesPlan: Vascular study reveals no clot either SVT or DVT. Secondary to his congestive heart failure. (4) CKD (chronic kidney disease) stage 4, GFR 15-29 ml/min Is this a current diagnosis for this admission?: YesPlan: Renally adjust medication (5) Cellulitis Qualifiers: Site of cellulitis: extremity Site of cellulitis of extremity: lower extremity Laterality: right Qualified Code(s): L03.115 - Cellulitis of right lower limb Is this a current diagnosis for this admission?: YesPlan: Continue patient on clindamycin. Place bacitracin on wound and dress daily. Have consulted podiatry for patient's chronic foot wounds including right second toecard. (6) Chronic atrial fibrillation Is this a current diagnosis for this admission?: Yes (7) Dementia Qualifiers: Dementia type: vascular dementia Dementia behavioral disturbance: without behavioral disturbance Qualified Code(s): F01.50 - Vascular dementia without behavioral disturbance Is this a current diagnosis for this admission?: Yes (8) SIRS (systemic inflammatory response syndrome) Is this a current diagnosis for this admission?: YesPlan: Secondary to cellulitis (9) Acute renal failure Qualifiers: Acute renal failure type: unspecified Qualified Code(s): N17.9 - Acute kidney failure, unspecified (10) Cerebral atherosclerosis Is this a current diagnosis for this admission?: YesPlan: Prior CVA (11) Laceration of head Qualifiers: Encounter type: initial encounter Location of open wound of head: scalp Foreign body presence: without foreign body Qualified Code(s): S01.01XA - Laceration without foreign body of scalp, initial encounter Is this a current diagnosis for this admission?: Yes (12) Vitamin B 12 deficiency Is this a current diagnosis for this admission?: Yes (13) Vascular dementia Qualifiers: Dementia behavioral disturbance: without behavioral disturbance Qualified Code(s): F01.50 - Vascular dementia without behavioral disturbance Is this a current diagnosis for this admission?: YesPlan: CT of the head reveals prior bilateral basal ganglia strokes
[2016-07-04] MEDS: CLINDAMYCIN HCL 150 MG CAPSULE PO SCH ×4 (00:51→17:25)
[2016-07-04] MEDS: HEPARIN SOD (PORCINE) 5,000 UNIT/ML 1 ML SYRINGE SUBCUT SCH ×3 (05:59→21:34)
[2016-07-04 06:16] LABS: ABSOLUTE BASOPHILS # (AUTO) 0.1 10^3/uL (0.0-0.2); ABSOLUTE EOSINOPHILS # (AUTO) 0.4 10^3/uL (0.0-0.6); ABSOLUTE LYMPHOCYTES (AUTO) 1.7 10^3/uL (0.5-4.7); ABSOLUTE MONOCYTES (AUTO) 0.9 10^3/uL (0.1-1.4); BASOPHILS % (AUTO) 0.7 % (0-2); EOSINOPHILS % (AUTO) 5.5 % (0-6); HEMATOCRIT 32.6 % (37.9-51.0); HEMOGLOBIN 10.9 g/dL (13.5-17.0); HGB HCT DIFFERENCE 0.1; LYMPHOCYTES % (AUTO) 20.5 % (13-45); MEAN CORPUSCULAR HEMOGLOBIN 30.4 pg (27.0-33.4); MEAN CORPUSCULAR HGB CONC 33.4 g/dL (32.0-36.0); MEAN CORPUSCULAR VOLUME 91 fl (80-97); MONOCYTES % (AUTO) 11.6 % (3-13); RED BLOOD COUNT 3.58 10^6/uL (4.35-5.55); SEGMENTED NEUTROPHILS % (AUTO) 61.7 % (42-78); WHITE BLOOD COUNT 8.2 10^3/uL (4.0-10.5)
[2016-07-04 06:32] LABS: ANION GAP 10 (5-19); BLOOD UREA NITROGEN 39 mg/dL (7-20); CARBON DIOXIDE 22 mmol/L (22-30); CHLORIDE 107 mmol/L (98-107); CREATININE RESULT 2.05 mg/dL (0.52-1.25); GLUCOSE 83 mg/dL (75-110); POTASSIUM 3.6 mmol/L (3.6-5.0)
[2016-07-04] MEDS: CALCITRIOL 0.25 MCG CAPSULE PO SCH (09:41)
[2016-07-04] MEDS: CARVEDILOL 6.25 MG TABLET PO SCH ×2 (09:42→21:34)
[2016-07-04] MEDS: FERROUS SULFATE 325 MG TABLET PO SCH (09:42)
[2016-07-04] MEDS: CYANOCOBALAMIN (VITAMIN B-12) 1,000 MCG TABLET PO SCH (09:42)
[2016-07-04] MEDS: ALLOPURINOL 100 MG TABLET PO SCH (09:42)
[2016-07-04] MEDS: LACTOBACILLUS ACIDOPHILUS 250 MG TAB PO SCH ×2 (09:43→17:25)
[2016-07-04] MEDS: AMLODIPINE BESYLATE 10 MG TABLET PO SCH (09:43)
[2016-07-04] MEDS: ASPIRIN 81 MG TABLET, ENT COATED PO SCH (09:43)
[2016-07-04] MEDS: BACITRACIN ZINC OINTMENT 15 GM TP SCH ×2 (09:43→17:25)
[2016-07-04] MEDS: DOCUSATE SODIUM 100 MG CAPSULE PO SCH ×2 (09:43→17:25)
[2016-07-04] MEDS ORDERED: AMLODIPINE BESYLATE 2.5 MG TABLET PO SCH (10:00)
--- NOTE | 2016-07-04 15:22 | PDOC PROGRESS REPORT ---
Subjective Progress Note for:: 07/04/16 Subjective:: Patient reports he's feeling significantly better. Patient denies chest pain, shortness of breath, abdominal pain, nausea, vomiting, fevers, chills, diarrhea , constipation, headache. Patient reported he had a bowel movement last night. Physical Exam Vital Signs: Temp Pulse Resp BP Pulse Ox 99.2 F 58 L 16 153/71 H 98 07/04/16 04:11 07/04/16 07:00 07/04/16 04:11 07/04/16 04:11 07/04/16 04:11 Intake & Output 07/03/16 07/04/16 07/05/16 06:59 06:59 06:59 Intake Total 1687 633 Output Total 360 Balance 1687 273 Weight 79 kg 78.2 kg Exam: GENERAL: Appears well, no acute distress, extremely hard of hearing HEENT: Patient has large hematoma/dried blood on right parietal scalp, normocephalic, moist mucous membranes, no scleral icterus, no conjunctival injection NECK: trachea midline, no JVD RESPIRATORY: Clear to auscultation, no wheezes/rhonchi/rales CARDIAC: Irregularly irregular ABDOMEN: Soft, no distension, no tenderness, no guarding, normal bowel sounds, negative Anderson sign EXTREMITIES: 1+ bilateral lower extremity edema NEUROLOGIC: Alert, oriented x2, not oriented to year, normal speech, cranial nerves grossly intact SKIN: Erythema in bilateral lower extremities distal to the knees, multiple excoriated lesions on bilateral lower extremities, left superior posterior lower extremity ulceration with small amount of purulent discharge PSYCHIATRIC: Normal mood, normal affect Results Laboratory Results: 07/04/16 05:24 07/04/16 05:24 07/04/16 07/04/16 05:24 05:24 WBC 8.2 RBC 3.58 L Hgb 10.9 L Hct 32.6 L MCV 91 MCH 30.4 MCHC 33.4 RDW 15.0 H Plt Count 186 Seg Neutrophils % 61.7 Lymphocytes % 20.5 Monocytes % 11.6 Eosinophils % 5.5 Basophils % 0.7 Absolute Neutrophils 5.0 Absolute Lymphocytes 1.7 Absolute Monocytes 0.9 Absolute Eosinophils 0.4 Absolute Basophils 0.1 Sodium 139.0 Potassium 3.6 Chloride 107 Carbon Dioxide 22 Anion Gap 10 BUN 39 H Creatinine 2.05 H Est GFR ( Amer) 38 L Est GFR (Non-Af Amer) 31 L Glucose 83 Calcium 8.0 L 07/03/16 04:36 NT-Pro-B Natriuret Pep 89008 H Impressions: Venous Doppler Study 07/01/16 00:00 IMPRESSION: NO EVIDENCE DVT OR SVT IN EITHER LEG. Head CT 07/03/16 00:00 IMPRESSION: Right parietal scalp laceration with hematoma and skin gosia. No underlying skull fracture or acute intracranial changes Chest X-Ray 07/03/16 06:00 IMPRESSION: No acute changes Assessment & Plan - Diagnosis (1) Sepsis affecting skin Is this a current diagnosis for this admission?: YesPlan: Patient has sepsis secondary to possibly Acinetobacter. Patient has Acinetobacter bacteremia. Have started patient empirically on Unasyn pending ID and sensitivity. Likely secondary to his lower extremity cellulitis. Have considered that this is possibly also the source for his pneumonia. (2) Advanced dementia Is this a current diagnosis for this admission?: YesPlan: This patient will require placement. 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 (3) Acute diastolic (congestive) heart failure Is this a current diagnosis for this admission?: YesPlan: Currently euvolemic. EF is found to be normal with a grade 2/4 diastolic dysfunction. Now on ral Lasix, Coreg, no need for Raghavendra/ARB at this time. Monitor I's and O's. Monitor daily weight. (4) Bilateral lower extremity edema Is this a current diagnosis for this admission?: Yes (5) CKD (chronic kidney disease) stage 4, GFR 15-29 ml/min Is this a current diagnosis for this admission?: YesPlan: Renally adjust medication (6) Cellulitis Qualifiers: Site of cellulitis: extremity Site of cellulitis of extremity: lower extremity Laterality: right Qualified Code(s): L03.115 - Cellulitis of right lower limb Is this a current diagnosis for this admission?: YesPlan: Continue patient on clindamycin. Place bacitracin on wound and dress daily. Have consulted podiatry for patient's chronic foot wounds including right second toe eschar. (7) Chronic atrial fibrillation Is this a current diagnosis for this admission?: Yes (8) Acute renal failure Qualifiers: Acute renal failure type: unspecified Qualified Code(s): N17.9 - Acute kidney failure, unspecified Is this a current diagnosis for this admission?: YesPlan: Acute on chronic renal failure, improved (9) Cerebral atherosclerosis Is this a current diagnosis for this admission?: YesPlan: Prior CVA (10) Laceration of head Qualifiers: Encounter type: subsequent encounter Location of open wound of head: scalp Foreign body presence: without foreign body Qualified Code(s): S01.01XD - Laceration without foreign body of scalp, subsequent encounter Is this a current diagnosis for this admission?: YesPlan: Appears to be well-healing. H&H is stable. (11) Vitamin B 12 deficiency Is this a current diagnosis for this admission?: YesPlan: Continue repletion - Time Time Spent with patient: 25-34 minutes Medications reviewed and adjusted accordingly: Yes Anticipated discharge: SNF, Acute Rehab Within: when bed available
[2016-07-04] MEDS ORDERED: AMPICILLIN SODIUM/SULBACTAM NA 3 GM in NORMAL SALINE 100 ML IV ONE (15:30)
[2016-07-04] MEDS: ATORVASTATIN CALCIUM 10 MG TABLET PO SCH (21:34)
[2016-07-04] MEDS: TEMAZEPAM 15 MG CAPSULE PO SCH (21:34)
[2016-07-04] MEDS: TAMSULOSIN HCL 0.4 MG CAP.SR.24H PO SCH (21:34)
[2016-07-04] MEDS: AMPICILLIN SODIUM/SULBACTAM NA 3 GM in NORMAL SALINE 100 ML IV SCH (21:34)
[2016-07-04] MEDS: SENNOSIDES/DOCUSATE 8.6-50 MG 1 EACH TABLET PO SCH (21:34)
[2016-07-05] MEDS: CLINDAMYCIN HCL 150 MG CAPSULE PO SCH ×5 (00:19→23:17)
[2016-07-05] MEDS: AMPICILLIN SODIUM/SULBACTAM NA 3 GM in NORMAL SALINE 100 ML IV SCH ×4 (03:40→23:15)
[2016-07-05] MEDS: HEPARIN SOD (PORCINE) 5,000 UNIT/ML 1 ML SYRINGE SUBCUT SCH ×3 (05:21→23:17)
[2016-07-05] MEDS: ASPIRIN 81 MG TABLET, ENT COATED PO SCH (09:08)
[2016-07-05] MEDS: DOCUSATE SODIUM 100 MG CAPSULE PO SCH ×2 (09:08→17:44)
[2016-07-05] MEDS: FERROUS SULFATE 325 MG TABLET PO SCH (09:08)
[2016-07-05] MEDS: ALLOPURINOL 100 MG TABLET PO SCH (09:08)
[2016-07-05] MEDS: CYANOCOBALAMIN (VITAMIN B-12) 1,000 MCG TABLET PO SCH (09:09)
[2016-07-05] MEDS: CARVEDILOL 6.25 MG TABLET PO SCH ×2 (09:09→23:16)
[2016-07-05] MEDS: AMLODIPINE BESYLATE 10 MG TABLET PO SCH (09:09)
[2016-07-05] MEDS: LACTOBACILLUS ACIDOPHILUS 250 MG TAB PO SCH ×2 (09:09→17:44)
[2016-07-05] MEDS: BACITRACIN ZINC OINTMENT 15 GM TP SCH ×2 (09:10→17:44)
--- NOTE | 2016-07-05 16:01 | PDOC PROGRESS REPORT ---
Subjective Progress Note for:: 07/05/16 Subjective:: Patient reports he's feeling significantly better. Patient denies chest pain, shortness of breath, abdominal pain, nausea, vomiting, fevers, chills, diarrhea , constipation, headache. Physical Exam Vital Signs: Temp Pulse Resp BP Pulse Ox 98.6 F 54 L 16 151/68 H 97 07/05/16 05:02 07/05/16 05:02 07/05/16 05:02 07/05/16 05:02 07/05/16 05:02 Intake & Output 07/04/16 07/05/16 07/06/16 06:59 06:59 06:59 Intake Total 633 900 Output Total 360 475 Balance 273 425 Weight 78.2 kg 79.3 kg Exam: GENERAL: Appears well, no acute distress, extremely hard of hearing HEENT: Patient has large hematoma/dried blood on right parietal scalp, normocephalic, moist mucous membranes, no scleral icterus, no conjunctival injection NECK: trachea midline, no JVD RESPIRATORY: Clear to auscultation, no wheezes/rhonchi/rales CARDIAC: Irregularly irregular ABDOMEN: Soft, no distension, no tenderness, no guarding, normal bowel sounds, negative Anderson sign EXTREMITIES: 1+ bilateral lower extremity edema to midshin, no cyanosis, no clubbing NEUROLOGIC: Alert, oriented x2, not oriented to year, normal speech, cranial nerves grossly intact SKIN: multiple Healing excoriated lesions on bilateral lower extremities, left superior posterior lower extremity abrasion, erythema nearly entirely resolved PSYCHIATRIC: Normal mood, normal affect Results Laboratory Results: 07/04/16 05:24 07/04/16 05:24 07/03/16 04:36 NT-Pro-B Natriuret Pep 53296 H Impressions: Venous Doppler Study 07/01/16 00:00 IMPRESSION: NO EVIDENCE DVT OR SVT IN EITHER LEG. Head CT 07/03/16 00:00 IMPRESSION: Right parietal scalp laceration with hematoma and skin gosia. No underlying skull fracture or acute intracranial changes Chest X-Ray 07/03/16 06:00 IMPRESSION: No acute changes Assessment & Plan - Diagnosis (1) Sepsis affecting skin Is this a current diagnosis for this admission?: YesPlan: Patient has sepsis secondary to Acinetobacter. Patient has Acinetobacter bacteremia. Continue patient on Unasyn for this. Have considered that this is possibly also the source for his pneumonia. (2) Advanced dementia Is this a current diagnosis for this admission?: YesPlan: This patient will require placement. 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 (3) Acute diastolic (congestive) heart failure Is this a current diagnosis for this admission?: YesPlan: Currently euvolemic. EF is found to be normal with a grade 2/4 diastolic dysfunction. Now on oral Lasix, Coreg, no need for Raghavendra/ARB at this time. Monitor I's and O's. Monitor daily weight. (4) CKD (chronic kidney disease) stage 4, GFR 15-29 ml/min Is this a current diagnosis for this admission?: YesPlan: Renally adjust medication (5) Cellulitis Qualifiers: Site of cellulitis: extremity Site of cellulitis of extremity: lower extremity Laterality: right Qualified Code(s): L03.115 - Cellulitis of right lower limb Is this a current diagnosis for this admission?: YesPlan: Continue patient on clindamycin and Unasyn. Place bacitracin on wound and dress daily. Have consulted podiatry for patient's chronic foot wounds including right second toe eschar. (6) Chronic atrial fibrillation Is this a current diagnosis for this admission?: Yes (7) Acute renal failure Qualifiers: Acute renal failure type: unspecified Qualified Code(s): N17.9 - Acute kidney failure, unspecified Is this a current diagnosis for this admission?: YesPlan: Acute on chronic renal failure, improved (8) Cerebral atherosclerosis Is this a current diagnosis for this admission?: Yes (9) Laceration of head Qualifiers: Encounter type: subsequent encounter Location of open wound of head: scalp Foreign body presence: without foreign body Qualified Code(s): S01.01XD - Laceration without foreign body of scalp, subsequent encounter Is this a current diagnosis for this admission?: Yes (10) Vitamin B 12 deficiency Is this a current diagnosis for this admission?: YesPlan: Continue repletion - Time Time Spent with patient: 25-34 minutes Medications reviewed and adjusted accordingly: Yes Within: when bed available
[2016-07-05] MEDS: ATORVASTATIN CALCIUM 10 MG TABLET PO SCH (23:16)
[2016-07-05] MEDS: TAMSULOSIN HCL 0.4 MG CAP.SR.24H PO SCH (23:17)
[2016-07-05] MEDS: TEMAZEPAM 15 MG CAPSULE PO SCH (23:17)
[2016-07-05] MEDS: SENNOSIDES/DOCUSATE 8.6-50 MG 1 EACH TABLET PO SCH (23:18)
[2016-07-06] MEDS: AMPICILLIN SODIUM/SULBACTAM NA 3 GM in NORMAL SALINE 100 ML IV SCH ×4 (04:10→23:15)
[2016-07-06] MEDS: HEPARIN SOD (PORCINE) 5,000 UNIT/ML 1 ML SYRINGE SUBCUT SCH ×3 (05:57→23:17)
[2016-07-06] MEDS: CLINDAMYCIN HCL 150 MG CAPSULE PO SCH ×4 (05:58→23:16)
[2016-07-06] MEDS: ALLOPURINOL 100 MG TABLET PO SCH (09:23)
[2016-07-06] MEDS: CYANOCOBALAMIN (VITAMIN B-12) 1,000 MCG TABLET PO SCH (09:24)
[2016-07-06] MEDS: AMLODIPINE BESYLATE 10 MG TABLET PO SCH (09:24)
[2016-07-06] MEDS: DOCUSATE SODIUM 100 MG CAPSULE PO SCH ×2 (09:24→17:49)
[2016-07-06] MEDS: CARVEDILOL 6.25 MG TABLET PO SCH ×2 (09:24→23:16)
[2016-07-06] MEDS: FERROUS SULFATE 325 MG TABLET PO SCH (09:25)
[2016-07-06] MEDS: ASPIRIN 81 MG TABLET, ENT COATED PO SCH (09:25)
[2016-07-06] MEDS: LACTOBACILLUS ACIDOPHILUS 250 MG TAB PO SCH ×2 (09:25→17:49)
[2016-07-06] MEDS: CALCITRIOL 0.25 MCG CAPSULE PO SCH (09:32)
[2016-07-06] MEDS: BACITRACIN ZINC OINTMENT 15 GM TP SCH ×2 (11:35→17:49)
--- NOTE | 2016-07-06 15:57 | PDOC CONSULTATION ---
Consultation Consult Date: 07/06/16 Attending physician:: JOE REES Consult reason:: Patient seen for an eschar on the distal aspect of the second toe right foot. History of Present Illness Admission Date/PCP: 07/01/16 16:59 LUI DUTTA MD Patient complains of: Painful area and of second toe right foot. History of Present Illness: TERE QUEEN is a 85 year old male that presents with a sore area on the end of his toe. Patient is unsure of how long it has been there. Past Medical History Cardiac Medical History: Reports: Hyperlipidema, Hypertension Pulmonary Medical History: Neurological Medical History: Denies: Seizures Renal/ Medical History: Reports: Chronic Kidney Disease - Stage IV, End Stage Renal Disease Musculoskeltal Medical History: Reports: Arthritis, Gout Psychiatric Medical History: Reports: Dementia Denies: Depression Hematology: Denies: Anemia, Hemophilia, Sickle Cell Disease Past Surgical History Past Surgical History: Reports: Orthopedic Surgery - knee replacement b/l Social History Smoking Status: Former Smoker Frequency of Alcohol Use: None Hx Recreational Drug Use: No Drugs: None Hx Prescription Drug Abuse: No - Advance Directive Resuscitation Status: Full Code Family History Family History: None Parental Family History Reviewed: Yes - unknown Children Family History Reviewed: Unknown Sibling(s) Family History Reviewed.: Unknown Medication/Allergy Home Medications: Atorvastatin Calcium [Lipitor] 10 mg PO QHS 07/27/15 Ferrous Sulfate [Iron] 325 mg PO DAILY 07/27/15 Tamsulosin HCl [Flomax 0.4 mg Cap.sr] 0.4 mg PO QHS 07/27/15 Torsemide [Demadex 20 mg Tablet] 10 mg PO DAILY tablet 08/02/15 Allopurinol [Zyloprim 300 mg Tablet] 100 mg PO DAILY #30 tablet 03/14/16 Amlodipine Besylate [Norvasc 2.5 mg Tablet] 2.5 mg PO DAILY #30 tablet 03/14/16 Calcitriol [Rocaltrol 0.25 mcg Capsule] 0.5 mcg PO MoWeFr@1000 #90 capsule 03/14 Cyanocobalamin (Vitamin B-12) [Vitamin B-12] 1,000 mcg PO DAILY #30 tablet.er Aspirin [Ecotrin] 81 mg PO DAILY 07/01/16 Hydrocodone/Acetaminophen [Hydrocodon-Acetaminoph 7.5-325] 1 each PO TID PRN Temazepam [Restoril 15 mg Capsule] 15 mg PO QHS 07/01/16 Allergies/Adverse Reactions: No Known Allergies Allergy (Unverified 09/22/10 10:45) Physical Exam Vital Signs: Temp Pulse Resp BP Pulse Ox 97.6 F 59 L 16 163/79 H 100 07/06/16 12:11 07/06/16 12:11 07/06/16 12:11 07/06/16 12:11 07/06/16 12:11 Intake & Output 07/05/16 07/06/16 07/07/16 06:59 06:59 06:59 Intake Total 900 680 Output Total 475 630 Balance 425 50 Weight 79.3 kg 80.2 kg General appearance: PRESENT: no acute distress, cooperative, hard of hearing Pulses: PRESENT: +1 pedal pulses bilateral Vascular exam: PRESENT: other - Delayed Musculoskeletal exam: PRESENT: other - Right second toe has a rigid hammertoe deformity. Skin exam: PRESENT: dry, other - Hyperkeratotic lesion at the distal aspect of the second digit right foot, it is painful to palpation. Second digit nail right foot is dark and and thickened. Results Laboratory Results: 07/04/16 05:24 07/04/16 05:24 07/03/16 04:36 NT-Pro-B Natriuret Pep 00596 H Impressions: Venous Doppler Study 07/01/16 00:00 IMPRESSION: NO EVIDENCE DVT OR SVT IN EITHER LEG. Head CT 07/03/16 00:00 IMPRESSION: Right parietal scalp laceration with hematoma and skin gosia. 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
--- NOTE | 2016-07-06 17:56 | PDOC PROGRESS REPORT ---
Subjective Progress Note for:: 07/06/16 Subjective:: Patient denies chest pain, shortness of breath, abdominal pain, nausea, vomiting , fevers, chills, diarrhea, constipation, headache, new onset weakness. Physical Exam Vital Signs: Temp Pulse Resp BP Pulse Ox 97.9 F 57 L 19 147/74 H 100 07/06/16 04:58 07/06/16 04:58 07/06/16 04:58 07/06/16 04:58 07/06/16 04:58 Intake & Output 07/05/16 07/06/16 07/07/16 06:59 06:59 06:59 Intake Total 900 680 Output Total 475 630 Balance 425 50 Weight 79.3 kg 80.2 kg Exam: GENERAL: Appears well, no acute distress, extremely hard of hearing HEENT: Patient has large hematoma/dried blood on right parietal scalp, normocephalic, moist mucous membranes, no scleral icterus, no conjunctival injection NECK: trachea midline, no JVD RESPIRATORY: Clear to auscultation, no wheezes/rhonchi/rales CARDIAC: Irregularly irregular ABDOMEN: Soft, no distension, no tenderness, no guarding, normal bowel sounds, negative Anderson sign EXTREMITIES: Trace bilateral lower extremity edema; no cyanosis, no clubbing NEUROLOGIC: Alert, oriented x2, not oriented to year, normal speech, cranial nerves grossly intact SKIN: multiple Healing excoriated lesions on bilateral lower extremities, left superior posterior lower extremity abrasion, erythema resolved PSYCHIATRIC: Normal mood, normal affect Results Laboratory Results: 07/04/16 05:24 07/04/16 05:24 07/03/16 04:36 NT-Pro-B Natriuret Pep 15625 H Impressions: Venous Doppler Study 07/01/16 00:00 IMPRESSION: NO EVIDENCE DVT OR SVT IN EITHER LEG. Head CT 07/03/16 00:00 IMPRESSION: Right parietal scalp laceration with hematoma and skin gosia. No underlying skull fracture or acute intracranial changes Chest X-Ray 07/03/16 06:00 IMPRESSION: No acute changes Assessment & Plan - Diagnosis (1) Sepsis affecting skin Is this a current diagnosis for this admission?: YesPlan: Patient has sepsis secondary to Acinetobacter. Patient has Acinetobacter bacteremia. Continue patient on Unasyn for this. Have considered that this is possibly also the source for his pneumonia. (2) Advanced dementia Is this a current diagnosis for this admission?: YesPlan: This patient will require placement. 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 (3) Acute diastolic (congestive) heart failure Is this a current diagnosis for this admission?: YesPlan: Currently euvolemic. EF is found to be normal with a grade 2/4 diastolic dysfunction. Now on oral Lasix, Coreg, no need for Raghavendra/ARB at this time. Monitor I's and O's. Monitor daily weight. (4) CKD (chronic kidney disease) stage 4, GFR 15-29 ml/min Is this a current diagnosis for this admission?: Yes (5) Cellulitis Qualifiers: Site of cellulitis: extremity Site of cellulitis of extremity: lower extremity Laterality: right Qualified Code(s): L03.115 - Cellulitis of right lower limb Is this a current diagnosis for this admission?: YesPlan: Continue patient on clindamycin and Unasyn. Place bacitracin on wound and dress daily. Have consulted podiatry for patient's chronic foot wounds including right second toe eschar. (6) Chronic atrial fibrillation Is this a current diagnosis for this admission?: Yes (7) Acute renal failure Qualifiers: Acute renal failure type: unspecified Qualified Code(s): N17.9 - Acute kidney failure, unspecified Is this a current diagnosis for this admission?: YesPlan: Acute on chronic renal failure, improved (8) Cerebral atherosclerosis Is this a current diagnosis for this admission?: Yes (9) Laceration of head Qualifiers: Encounter type: subsequent encounter Location of open wound of head: scalp Foreign body presence: without foreign body Qualified Code(s): S01.01XD - Laceration without foreign body of scalp, subsequent encounter Is this a current diagnosis for this admission?: YesPlan: Appears to be well-healing. H&H is stable. (10) Vitamin B 12 deficiency Is this a current diagnosis for this admission?: Yes - Time Time Spent with patient: 25-34 minutes Medications reviewed and adjusted accordingly: Yes Anticipated discharge: SNF Within: when bed available
[2016-07-06] MEDS: ATORVASTATIN CALCIUM 10 MG TABLET PO SCH (23:15)
[2016-07-06] MEDS: TEMAZEPAM 15 MG CAPSULE PO SCH (23:16)
[2016-07-06] MEDS: TAMSULOSIN HCL 0.4 MG CAP.SR.24H PO SCH (23:16)
[2016-07-06] MEDS: SENNOSIDES/DOCUSATE 8.6-50 MG 1 EACH TABLET PO SCH (23:16)
[2016-07-07] MEDS: AMPICILLIN SODIUM/SULBACTAM NA 3 GM in NORMAL SALINE 100 ML IV SCH ×4 (04:19→22:18)
[2016-07-07] MEDS: CLINDAMYCIN HCL 150 MG CAPSULE PO SCH ×4 (06:05→23:43)
[2016-07-07] MEDS: HEPARIN SOD (PORCINE) 5,000 UNIT/ML 1 ML SYRINGE SUBCUT SCH ×3 (06:05→22:18)
[2016-07-07] MEDS: CARVEDILOL 6.25 MG TABLET PO SCH ×2 (09:04→22:19)
[2016-07-07] MEDS: DOCUSATE SODIUM 100 MG CAPSULE PO SCH ×2 (09:04→17:17)
[2016-07-07] MEDS: ASPIRIN 81 MG TABLET, ENT COATED PO SCH (09:05)
[2016-07-07] MEDS: ALLOPURINOL 100 MG TABLET PO SCH (09:06)
[2016-07-07] MEDS: AMLODIPINE BESYLATE 10 MG TABLET PO SCH (09:06)
[2016-07-07] MEDS: CYANOCOBALAMIN (VITAMIN B-12) 1,000 MCG TABLET PO SCH (09:06)
[2016-07-07] MEDS: LACTOBACILLUS ACIDOPHILUS 250 MG TAB PO SCH ×2 (09:06→17:16)
[2016-07-07] MEDS: FERROUS SULFATE 325 MG TABLET PO SCH (09:06)
[2016-07-07] MEDS: BACITRACIN ZINC OINTMENT 15 GM TP SCH ×2 (09:07→17:17)
--- NOTE | 2016-07-07 14:36 | PDOC PROGRESS REPORT ---
Subjective Progress Note for:: 07/07/16 Physical Exam Vital Signs: Temp Pulse Resp BP Pulse Ox 98.4 F 54 L 18 149/75 H 98 07/07/16 04:02 07/07/16 04:02 07/07/16 04:02 07/07/16 04:02 07/07/16 04:02 Intake & Output 07/06/16 07/07/16 07/08/16 06:59 06:59 06:59 Intake Total 680 1761 Output Total 630 750 Balance 50 1011 Weight 80.2 kg 81.7 kg Exam: GENERAL: Appears well, no acute distress, extremely hard of hearing HEENT: Patient has large hematoma/dried blood on right parietal scalp, normocephalic, moist mucous membranes, no scleral icterus, no conjunctival injection NECK: trachea midline, no JVD RESPIRATORY: Clear to auscultation, no wheezes/rhonchi/rales CARDIAC: Irregularly irregular ABDOMEN: Soft, no distension, no tenderness, no guarding, normal bowel sounds, negative Anderson sign EXTREMITIES: No edema; no cyanosis, no clubbing NEUROLOGIC: Alert, oriented x2, not oriented to year, normal speech, cranial nerves grossly intact SKIN: multiple Healing excoriated lesions on bilateral lower extremities, left superior posterior lower extremity abrasion, erythema resolved PSYCHIATRIC: Normal mood, normal affect Results Laboratory Results: 07/04/16 05:24 07/04/16 05:24 07/03/16 04:36 NT-Pro-B Natriuret Pep [id number] H Impressions: Venous Doppler Study 07/01/16 00:00 IMPRESSION: NO EVIDENCE DVT OR SVT IN EITHER LEG. Head CT 07/03/16 00:00 IMPRESSION: Right parietal scalp laceration with hematoma and skin gosia. No underlying skull fracture or acute intracranial changes Chest X-Ray 07/03/16 06:00 IMPRESSION: No acute changes Assessment & Plan - Diagnosis (1) Sepsis affecting skin Is this a current diagnosis for this admission?: YesPlan: Patient has sepsis secondary to Acinetobacter. Patient has Acinetobacter bacteremia. Continue patient on Unasyn for this. Have considered that this is possibly also the source for his pneumonia. (2) Advanced dementia Is this a current diagnosis for this admission?: YesPlan: This patient will require placement. 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 (3) Acute diastolic (congestive) heart failure Is this a current diagnosis for this admission?: YesPlan: Currently euvolemic. EF is found to be normal with a grade 2/4 diastolic dysfunction. Now on oral Lasix, Coreg, no need for Raghavendra/ARB at this time. Monitor I's and O's. Monitor daily weight. (4) CKD (chronic kidney disease) stage 4, GFR 15-29 ml/min Is this a current diagnosis for this admission?: Yes (5) Cellulitis Qualifiers: Site of cellulitis: extremity Site of cellulitis of extremity: lower extremity Laterality: right Qualified Code(s): L03.115 - Cellulitis of right lower limb Is this a current diagnosis for this admission?: YesPlan: Continue patient on clindamycin and Unasyn. Continue 1 additional day of antibiotics. Place bacitracin on wound and dress daily. Appreciate podiatry input. (6) Chronic atrial fibrillation Is this a current diagnosis for this admission?: YesPlan: Poor candidate for anticoagulation due to dementia, fall. (7) Acute renal failure Qualifiers: Acute renal failure type: unspecified Qualified Code(s): N17.9 - Acute kidney failure, unspecified Is this a current diagnosis for this admission?: Yes (8) Cerebral atherosclerosis Is this a current diagnosis for this admission?: Yes (9) Laceration of head Qualifiers: Encounter type: subsequent encounter Location of open wound of head: scalp Foreign body presence: without foreign body Qualified Code(s): S01.01XD - Laceration without foreign body of scalp, subsequent encounter Is this a current diagnosis for this admission?: YesPlan: Plan to take gosia tomorrow. (10) Vitamin B 12 deficiency Is this a current diagnosis for this admission?: YesPlan: Continue repletion - Time Time Spent with patient: 25-34 minutes Medications reviewed and adjusted accordingly: Yes Anticipated discharge: SNF
[2016-07-07] MEDS: SENNOSIDES/DOCUSATE 8.6-50 MG 1 EACH TABLET PO SCH (22:18)
[2016-07-07] MEDS: TAMSULOSIN HCL 0.4 MG CAP.SR.24H PO SCH (22:18)
[2016-07-07] MEDS: TEMAZEPAM 15 MG CAPSULE PO SCH (22:18)
[2016-07-07] MEDS: ATORVASTATIN CALCIUM 10 MG TABLET PO SCH (22:18)
[2016-07-08] MEDS: AMPICILLIN SODIUM/SULBACTAM NA 3 GM in NORMAL SALINE 100 ML IV SCH ×4 (03:00→20:28)
[2016-07-08] MEDS: CLINDAMYCIN HCL 150 MG CAPSULE PO SCH ×4 (06:06→23:57)
[2016-07-08] MEDS: HEPARIN SOD (PORCINE) 5,000 UNIT/ML 1 ML SYRINGE SUBCUT SCH ×3 (06:06→23:53)
[2016-07-08] MEDS: FERROUS SULFATE 325 MG TABLET PO SCH (10:06)
[2016-07-08] MEDS: AMLODIPINE BESYLATE 10 MG TABLET PO SCH (10:06)
[2016-07-08] MEDS: LACTOBACILLUS ACIDOPHILUS 250 MG TAB PO SCH ×2 (10:06→17:17)
[2016-07-08] MEDS: ASPIRIN 81 MG TABLET, ENT COATED PO SCH (10:06)
[2016-07-08] MEDS: ALLOPURINOL 100 MG TABLET PO SCH (10:06)
[2016-07-08] MEDS: CYANOCOBALAMIN (VITAMIN B-12) 1,000 MCG TABLET PO SCH (10:07)
[2016-07-08] MEDS: CARVEDILOL 6.25 MG TABLET PO SCH ×2 (10:07→23:55)
[2016-07-08] MEDS: DOCUSATE SODIUM 100 MG CAPSULE PO SCH ×2 (10:07→17:17)
[2016-07-08] MEDS: BACITRACIN ZINC OINTMENT 15 GM TP SCH ×2 (10:07→17:16)
--- NOTE | 2016-07-08 19:45 | PDOC PROGRESS REPORT ---
Subjective Progress Note for:: 07/08/16 Subjective:: Patient reports he's feeling well.Patient denies chest pain, shortness of breath , abdominal pain, nausea, vomiting, fevers, chills, diarrhea, constipation, headache, new onset weakness. Physical Exam Vital Signs: Temp Pulse Resp BP Pulse Ox 97.3 F 56 L 16 133/72 H 99 07/08/16 04:12 07/08/16 07:00 07/08/16 04:12 07/08/16 04:12 07/08/16 04:12 Intake & Output 07/07/16 07/08/16 07/09/16 06:59 06:59 06:59 Intake Total 1761 550 Output Total 750 175 Balance 1011 375 Weight 81.7 kg 81.7 kg Exam: GENERAL: Appears well, no acute distress, extremely hard of hearing HEENT: Patient has large hematoma/dried blood on right parietal scalp, normocephalic, moist mucous membranes, no scleral icterus, no conjunctival injection NECK: trachea midline, no JVD RESPIRATORY: Clear to auscultation, no wheezes/rhonchi/rales CARDIAC: Irregularly irregular ABDOMEN: Soft, no distension, no tenderness, no guarding, normal bowel sounds, negative Anderson sign EXTREMITIES: No edema; no cyanosis, no clubbing NEUROLOGIC: Alert, oriented x2, not oriented to year, normal speech, cranial nerves grossly intact SKIN: multiple Healing excoriated lesions on bilateral lower extremities, left superior posterior lower extremity abrasion, erythema resolved PSYCHIATRIC: Normal mood, normal affect Results Laboratory Results: 07/04/16 05:24 07/04/16 05:24 07/03/16 04:36 NT-Pro-B Natriuret Pep 14510 H Impressions: Venous Doppler Study 07/01/16 00:00 IMPRESSION: NO EVIDENCE DVT OR SVT IN EITHER LEG. Head CT 07/03/16 00:00 IMPRESSION: Right parietal scalp laceration with hematoma and skin gosia. No underlying skull fracture or acute intracranial changes Chest X-Ray 07/03/16 06:00 IMPRESSION: No acute changes Assessment & Plan - Diagnosis (1) Sepsis affecting skin Is this a current diagnosis for this admission?: YesPlan: Patient has sepsis secondary to Acinetobacter. Patient has Acinetobacter bacteremia. Continue patient on Unasyn for this. Have considered that this is possibly also the source for his pneumonia. (2) Advanced dementia Is this a current diagnosis for this admission?: YesPlan: This patient will require placement. 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 (3) Acute diastolic (congestive) heart failure Is this a current diagnosis for this admission?: YesPlan: Currently euvolemic. EF is found to be normal with a grade 2/4 diastolic dysfunction. Now on oral Lasix, Coreg, no need for Raghavendra/ARB at this time. Monitor I's and O's. Monitor daily weight. (4) CKD (chronic kidney disease) stage 4, GFR 15-29 ml/min Is this a current diagnosis for this admission?: YesPlan: Renally adjust medication (5) Cellulitis Qualifiers: Site of cellulitis: extremity Site of cellulitis of extremity: lower extremity Laterality: right Qualified Code(s): L03.115 - Cellulitis of right lower limb Is this a current diagnosis for this admission?: YesPlan: Continue patient on clindamycin and Unasyn. Stop antibiotics tomorrow. Patient will have completed [address] bacitracin on wound and dress daily. Appreciate podiatry input. (6) Chronic atrial fibrillation Is this a current diagnosis for this admission?: YesPlan: Poor candidate for anticoagulation due to dementia, fall. (7) Acute renal failure Qualifiers: Acute renal failure type: unspecified Qualified Code(s): N17.9 - Acute kidney failure, unspecified Is this a current diagnosis for this admission?: Yes (8) Cerebral atherosclerosis Is this a current diagnosis for this admission?: Yes (9) Laceration of head Qualifiers: Encounter type: subsequent encounter Location of open wound of head: scalp Foreign body presence: without foreign body Qualified Code(s): S01.01XD - Laceration without foreign body of scalp, subsequent encounter Is this a current diagnosis for this admission?: YesPlan: Plan to take gosia tomorrow. (10) Vitamin B 12 deficiency Is this a current diagnosis for this admission?: YesPlan: Continue repletion - Time Time Spent with patient: 15-24 minutes Medications reviewed and adjusted accordingly: Yes Anticipated discharge: SNF, Acute Rehab Within: when bed available
[2016-07-08] MEDS: SENNOSIDES/DOCUSATE 8.6-50 MG 1 EACH TABLET PO SCH (23:53)
[2016-07-08] MEDS: TAMSULOSIN HCL 0.4 MG CAP.SR.24H PO SCH (23:54)
[2016-07-08] MEDS: ATORVASTATIN CALCIUM 10 MG TABLET PO SCH (23:54)
[2016-07-08] MEDS: TEMAZEPAM 15 MG CAPSULE PO SCH (23:55)
[2016-07-09] MEDS: AMPICILLIN SODIUM/SULBACTAM NA 3 GM in NORMAL SALINE 100 ML IV SCH (03:41)
[2016-07-09] MEDS: CLINDAMYCIN HCL 150 MG CAPSULE PO SCH (05:54)
[2016-07-09] MEDS: HEPARIN SOD (PORCINE) 5,000 UNIT/ML 1 ML SYRINGE SUBCUT SCH ×3 (05:55→22:50)
[2016-07-09] MEDS ORDERED: BISACODYL 10 MG SUPP.RECT PR ONE (10:30)
[2016-07-09] MEDS: DOCUSATE SODIUM 100 MG CAPSULE PO SCH ×2 (11:35→18:35)
[2016-07-09] MEDS: ALLOPURINOL 100 MG TABLET PO SCH (11:35)
[2016-07-09] MEDS: AMLODIPINE BESYLATE 10 MG TABLET PO SCH (11:36)
[2016-07-09] MEDS: LACTOBACILLUS ACIDOPHILUS 250 MG TAB PO SCH ×2 (11:36→18:34)
[2016-07-09] MEDS: FERROUS SULFATE 325 MG TABLET PO SCH (11:36)
[2016-07-09] MEDS: CYANOCOBALAMIN (VITAMIN B-12) 1,000 MCG TABLET PO SCH (11:36)
[2016-07-09] MEDS: ASPIRIN 81 MG TABLET, ENT COATED PO SCH (11:37)
[2016-07-09] MEDS: CARVEDILOL 6.25 MG TABLET PO SCH (11:37)
[2016-07-09] MEDS: CALCITRIOL 0.25 MCG CAPSULE PO SCH (11:38)
[2016-07-09] MEDS: BACITRACIN ZINC OINTMENT 15 GM TP SCH ×2 (11:40→18:41)
--- NOTE | 2016-07-09 15:37 | PDOC PROGRESS REPORT ---
Subjective Progress Note for:: 07/09/16 Subjective:: Patient reports he's feeling well. Patient denies chest pain, shortness of breath, abdominal pain, nausea, vomiting, fevers, chills, diarrhea, constipation , headache, new onset weakness. Physical Exam Vital Signs: Temp Pulse Resp BP Pulse Ox 98.0 F 58 L 14 131/66 H 97 07/08/16 16:34 07/09/16 02:00 07/08/16 16:34 07/08/16 16:34 07/08/16 16:34 Intake & Output 07/08/16 07/09/16 07/10/16 06:59 06:59 06:59 Intake Total 550 770 Output Total 175 625 Balance 375 145 Weight 81.7 kg 78.3 kg Exam: GENERAL: Appears well, no acute distress, extremely hard of hearing HEENT: Patient has large hematoma/gosia on right parietal scalp, normocephalic , moist mucous membranes, no scleral icterus, no conjunctival injection NECK: trachea midline, no JVD RESPIRATORY: Clear to auscultation, no wheezes/rhonchi/rales CARDIAC: Irregularly irregular ABDOMEN: Soft, no distension, no tenderness, no guarding, normal bowel sounds, negative Anderson sign EXTREMITIES: No edema; no cyanosis, no clubbing NEUROLOGIC: Alert, oriented x2, not oriented to year, normal speech, cranial nerves grossly intact SKIN: multiple healed excoriated lesions on bilateral lower extremities, left superior posterior lower extremity abrasion, healed PSYCHIATRIC: Normal mood, normal affect Results Laboratory Results: 07/04/16 05:24 07/04/16 05:24 07/03/16 04:36 NT-Pro-B Natriuret Pep 35659 H Impressions: Venous Doppler Study 07/01/16 00:00 IMPRESSION: NO EVIDENCE DVT OR SVT IN EITHER LEG. Head CT 07/03/16 00:00 IMPRESSION: Right parietal scalp laceration with hematoma and skin gosia. No underlying skull fracture or acute intracranial changes Chest X-Ray 07/03/16 06:00 IMPRESSION: No acute changes Assessment & Plan - Diagnosis (1) Sepsis affecting skin Is this a current diagnosis for this admission?: YesPlan: Patient has sepsis secondary to Acinetobacter. Patient has Acinetobacter bacteremia. Patient completed course of Unasyn. Have considered that this is possibly also the source for his pneumonia. (2) Advanced dementia Is this a current diagnosis for this admission?: YesPlan: This patient will require placement. 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 (3) Acute diastolic (congestive) heart failure Is this a current diagnosis for this admission?: YesPlan: Currently euvolemic. EF is found to be normal with a grade 2/4 diastolic dysfunction. Now on oral Lasix, Coreg, no need for Raghavendra/ARB at this time. Monitor I's and O's. Monitor daily weight. (4) CKD (chronic kidney disease) stage 4, GFR 15-29 ml/min Is this a current diagnosis for this admission?: YesPlan: Renally adjust medication (5) Cellulitis Qualifiers: Site of cellulitis: extremity Site of cellulitis of extremity: lower extremity Laterality: right Qualified Code(s): L03.115 - Cellulitis of right lower limb Is this a current diagnosis for this admission?: YesPlan: Patient completed 7 days of Unasyn and clindamycin. Have stopped antibiotics today. Continue to monitor clinically. (6) Chronic atrial fibrillation Is this a current diagnosis for this admission?: YesPlan: Currently rate controlled on Coreg. Poor candidate for anticoagulation due to dementia, fall. (7) Acute renal failure Qualifiers: Acute renal failure type: unspecified Qualified Code(s): N17.9 - Acute kidney failure, unspecified Is this a current diagnosis for this admission?: YesPlan: Acute on chronic renal failure, improved with hydration. (8) Cerebral atherosclerosis Is this a current diagnosis for this admission?: Yes (9) Laceration of head Qualifiers: Encounter type: subsequent encounter Location of open wound of head: scalp Foreign body presence: without foreign body Qualified Code(s): S01.01XD - Laceration without foreign body of scalp, subsequent encounter Is this a current diagnosis for this admission?: YesPlan: Will remove gosia today. (10) Vitamin B 12 deficiency Is this a current diagnosis for this admission?: YesPlan: Continue repletion (11) Full code status Is this a current diagnosis for this admission?: YesPlan: [place] surrogate decision maker - Time Time Spent with patient: 25-34 minutes Medications reviewed and adjusted accordingly: Yes Anticipated discharge: SNF Within: when bed available
[2016-07-09] MEDS: TAMSULOSIN HCL 0.4 MG CAP.SR.24H PO SCH (22:50)
[2016-07-09] MEDS: SENNOSIDES/DOCUSATE 8.6-50 MG 1 EACH TABLET PO SCH (22:50)
[2016-07-09] MEDS: ATORVASTATIN CALCIUM 10 MG TABLET PO SCH (22:50)
[2016-07-10] MEDS: CARVEDILOL 6.25 MG TABLET PO SCH ×2 (01:28→11:09)
[2016-07-10] MEDS: HEPARIN SOD (PORCINE) 5,000 UNIT/ML 1 ML SYRINGE SUBCUT SCH ×2 (06:02→14:58)
[2016-07-10] MEDS: ASPIRIN 81 MG TABLET, ENT COATED PO SCH (11:07)
[2016-07-10] MEDS: DOCUSATE SODIUM 100 MG CAPSULE PO SCH (11:07)
[2016-07-10] MEDS: ALLOPURINOL 100 MG TABLET PO SCH (11:08)
[2016-07-10] MEDS: FERROUS SULFATE 325 MG TABLET PO SCH (11:08)
[2016-07-10] MEDS: AMLODIPINE BESYLATE 10 MG TABLET PO SCH (11:08)
[2016-07-10] MEDS: LACTOBACILLUS ACIDOPHILUS 250 MG TAB PO SCH (11:09)
[2016-07-10] MEDS: CYANOCOBALAMIN (VITAMIN B-12) 1,000 MCG TABLET PO SCH (11:09)
--- NOTE | 2016-07-10 11:25 | PDOC DISCHARGE SUMMARY ---
General - Admit/Disc Date/PCP Admission Date/Primary Care Provider: 07/01/16 16:59 LUI DUTTA MD Discharge Date: 07/10/16 - Discharge Diagnosis (1) SIRS (systemic inflammatory response syndrome) Is this a current diagnosis for this admission?: Yes (2) Cellulitis Is this a current diagnosis for this admission?: Yes (3) Acute diastolic (congestive) heart failure Is this a current diagnosis for this admission?: Yes (4) Bilateral lower extremity edema Is this a current diagnosis for this admission?: Yes (5) Chronic atrial fibrillation Is this a current diagnosis for this admission?: Yes (6) Dementia Is this a current diagnosis for this admission?: Yes (7) Laceration of head Is this a current diagnosis for this admission?: Yes (8) Vitamin B 12 deficiency Is this a current diagnosis for this admission?: Yes (9) CKD (chronic kidney disease) stage 4, GFR 15-29 ml/min Is this a current diagnosis for this admission?: Yes (10) Hypertension Is this a current diagnosis for this admission?: Yes (11) Ambulatory dysfunction Is this a current diagnosis for this admission?: Yes (12) Full code status Is this a current diagnosis for this admission?: Yes - Additional Information Resuscitation Status: Full Code Discharge Diet: Cardiac Discharge Activity: Activity As Tolerated, Balance Activity w/Rest, Weigh Daily Home Medications: Atorvastatin Calcium [Lipitor] 10 mg PO QHS 07/27/15 Ferrous Sulfate [Iron] 325 mg PO DAILY 07/27/15 Tamsulosin HCl [Flomax 0.4 mg Cap.sr] 0.4 mg PO QHS 07/27/15 Torsemide [Demadex 20 mg Tablet] 10 mg PO DAILY tablet 08/02/15 Calcitriol [Rocaltrol 0.25 mcg Capsule] 0.5 mcg PO MoWeFr@1000 #90 capsule 03/14 Cyanocobalamin (Vitamin B-12) [Vitamin B-12] 1,000 mcg PO DAILY #30 tablet.er Aspirin [Ecotrin] 81 mg PO DAILY 07/01/16 Acetaminophen [Tylenol 325 mg Tablet] 650 mg PO Q4HP PRN tablet 07/10/16 Allopurinol [Zyloprim 100 mg Tablet] 100 mg PO DAILY tablet 07/10/16 Amlodipine Besylate [Norvasc 10 mg Tablet] 10 mg PO DAILY tablet 07/10/16 Bisacodyl [Dulcolax 10 mg Supp.rect] 10 mg MD DAILYP PRN supp.rect 07/10/16 Carvedilol [Coreg 6.25 mg Tablet] 6.25 mg PO Q12 tablet 07/10/16 Docusate Sodium [Colace 100 mg Capsule] 100 mg PO BID capsule 07/10/16 Doxycycline Hyclate [Vibramycin 100 mg Tablet] 100 mg PO Q12 7 Days 07/10/16 Sennosides/Docusate 8.6-50 mg [Senna Plus Tablet] 1 each PO QHS tablet History of Present Illness Patient complains of: Leg swelling/pain History of Present Illness: TERE QUEEN is a 85 year old male that presents with bilateral lower extremity pain and swelling. It is unclear how long this is been going on as patient has profound hearing loss and dementia and does not provide adequate history. Family is not present. According to emergency department provider he found that patient has been living alone and family was concerned about the situation and was looking for assisted living facility. It is noted that patient sustained a fall on 06/26/2016 with a scalp contusion/ laceration. He had delfino in place on admission. Hospital Course Hospital Course: Patient was admitted for bilateral lower extremity cellulitis and edema. He was treated with one-week course of IV antibiotics. He has 7 days of oral doxycycline remaining upon discharge. Patient had a blood culture that was positive for Acinetobacter sensitive to doxycycline. Patient was noted be in acutely decompensated congestive heart failure secondary to grade 2/4 diastolic dysfunction. He was diuresed with IV Lasix. He will be transitioned to maintenance dose of oral Demadex. He is also on Coreg. He was not placed on STEPHANIE inhibitor or ARB secondary to significant renal impairment. Patient has ambulatory dysfunction and has been evaluated by physical therapy. He will need ongoing physical therapy upon discharge. Patient had a scalp laceration resulting from a fall several days prior to admission. Delfino will be removed prior to discharge from the hospital. Patient has stage IV chronic kidney disease. Creatinine is at baseline at time of discharge at 2.05. Physical Exam Vital Signs: Temp Pulse Resp BP Pulse Ox 98.7 F 59 L 14 143/69 H 97 07/10/16 08:16 07/10/16 08:16 07/10/16 08:16 07/10/16 08:16 07/10/16 08:16 Intake & Output 07/09/16 07/10/16 07/11/16 06:59 06:59 06:59 Intake Total 770 646 Output Total 625 625 Balance 145 21 Weight 78.3 kg 69.4 kg GENERAL: No acute distress, hard of hearing HEENT: Conjunctiva clear, nonicteric, moist mucous membranes, no JVD, midline trachea RESPIRATORY: Clear to auscultation bilaterally, no wheezes, no rhonchi CARDIAC: Regular rate and rhythm, no murmurs/gallops/rubs ABDOMEN: Soft, nondistended, nontender, positive bowel sounds, no rebound, no guarding EXTREMETIES: No edema, cyanosis, clubbing NEUROLOGIC: Alert, oriented to person/place/time, CN's grossly intact, no focal deficits SKIN: Mild erythema in bilateral lower extremities markedly improved from admission PSYCH: Normal mood, normal affect Results Laboratory Results: 07/04/16 05:24 07/04/16 05:24 07/03/16 04:36 NT-Pro-B Natriuret Pep 13290 H Labs- Last Values WBC 8.2 10^3/uL (4.0-10.5) 07/04/16 05:24 RBC 3.58 10^6/uL (4.35-5.55) L 07/04/16 05:24 Hgb 10.9 g/dL (13.5-17.0) L 07/04/16 05:24 Hct 32.6 % (37.9-51.0) L 07/04/16 05:24 MCV 91 fl (80-97) 07/04/16 05:24 MCH 30.4 pg (27.0-33.4) 07/04/16 05:24 MCHC 33.4 g/dL (32.0-36.0) 07/04/16 05:24 RDW 15.0 % (11.5-14.0) H 07/04/16 05:24 Plt Count 186 10^3/uL (150-450) 07/04/16 05:24 Seg Neutrophils % 61.7 % (42-78) 07/04/16 05:24 Lymphocytes % 20.5 % (13-45) 07/04/16 05:24 Monocytes % 11.6 % (3-13) 07/04/16 05:24 Eosinophils % 5.5 % (0-6) 07/04/16 05:24 Basophils % 0.7 % (0-2) 07/04/16 05:24 Absolute Neutrophils 5.0 10^3/uL (1.7-8.2) 07/04/16 05:24 Absolute Lymphocytes 1.7 10^3/uL (0.5-4.7) 07/04/16 05:24 Absolute Monocytes 0.9 10^3/uL (0.1-1.4) 07/04/16 05:24 Absolute Eosinophils 0.4 10^3/uL (0.0-0.6) 07/04/16 05:24 Absolute Basophils 0.1 10^3/uL (0.0-0.2) 07/04/16 05:24 Sodium 139.0 mmol/L (137-145) 07/04/16 05:24 Potassium 3.6 mmol/L (3.6-5.0) 07/04/16 05:24 Chloride 107 mmol/L (98-107) 07/04/16 05:24 Carbon Dioxide 22 mmol/L (22-30) 07/04/16 05:24 Anion Gap 10 (5-19) 07/04/16 05:24 BUN 39 mg/dL (7-20) H 07/04/16 05:24 Creatinine 2.05 mg/dL (0.52-1.25) H 07/04/16 05:24 Est GFR ( Amer) 38 (>60) L 07/04/16 05:24 Est GFR (Non-Af Amer) 31 (>60) L 07/04/16 05:24 Glucose 83 mg/dL (75-110) 07/04/16 05:24 Calcium 8.0 mg/dL (8.4-10.2) L 07/04/16 05:24 Total Bilirubin 0.5 mg/dL (0.2-1.3) 07/01/16 12:42 Direct Bilirubin 0.0 mg/dL (0.0-0.3) 07/01/16 12:42 AST 25 U/L (17-59) 07/01/16 12:42 ALT 19 U/L (21-72) L 07/01/16 12:42 Alkaline Phosphatase 87 U/L (38-126) 07/01/16 12:42 Creatine Kinase 164 U/L (55-170) 07/01/16 12:42 Troponin I 0.036 ng/mL 07/01/16 12:42 NT-Pro-B Natriuret Pep 05769 pg/mL (<450) H 07/03/16 04:36 Total Protein 6.1 g/dL (6.3-8.2) L 07/01/16 12:42 Albumin 2.9 g/dL (3.5-5.0) L 07/01/16 12:42 Vitamin B12 > 1000.0 pg/mL (239-931) H 07/02/16 04:44 TSH 2.97 uIU/mL (0.47-4.68) 07/02/16 04:44 Urine Color YELLOW 07/01/16 13:40 Urine Appearance SLIGHTLY-CLOUDY 07/01/16 13:40 Urine pH 5.0 (5.0-9.0) 07/01/16 13:40 Ur Specific Marcy 1.015 07/01/16 13:40 Urine Protein 30 mg/dL (NEGATIVE) H 07/01/16 13:40 Urine Glucose (UA) NEGATIVE mg/dL (NEGATIVE) 07/01/16 13:40 Urine Ketones NEGATIVE mg/dL (NEGATIVE) 07/01/16 13:40 Urine Blood LARGE (NEGATIVE) H 07/01/16 13:40 Urine Nitrite NEGATIVE (NEGATIVE) 07/01/16 13:40 Urine Bilirubin NEGATIVE (NEGATIVE) 07/01/16 13:40 Urine Urobilinogen NEGATIVE mg/dL (<2.0) 07/01/16 13:40 Ur Leukocyte Esterase NEGATIVE (NEGATIVE) 07/01/16 13:40 Urine WBC (Auto) 1 /HPF 07/01/16 13:40 Urine RBC (Auto) 152 /HPF 07/01/16 13:40 Urine Bacteria (Auto) TRACE /HPF 07/01/16 13:40 Squamous Epi Cells Auto <1 /HPF 07/01/16 13:40 Urine Mucus (Auto) RARE /LPF 07/01/16 13:40 Urine Ascorbic Acid NEGATIVE (NEGATIVE) 07/01/16 13:40 07/01/16 14:16 Blood Culture - Final Blood NO GROWTH IN 5 DAYS 07/01/16 13:40 Urine Culture - Final Catheterized Urine NO GROWTH 2 DAYS 07/01/16 13:05 Blood Culture - Final Blood Acinetobacter Lwoffii Impressions: Venous Doppler Study 07/01/16 00:00 IMPRESSION: NO EVIDENCE DVT OR SVT IN EITHER LEG. Head CT 07/03/16 00:00 IMPRESSION: Right parietal scalp laceration with hematoma and skin delfino. No underlying skull fracture or acute intracranial changes Chest X-Ray 07/03/16 06:00 IMPRESSION: No acute changes Qualifiers PATEINT BEING DISCHARGED WITH ANY OF THE FOLLOWING DIAGNOSIS?: Heart Failure HF Pt being discharged on ACEI for LVEF less than 40%?: No Reason(s) for not prescribing ACEI:: Not indicated HF Pt being discharged on ARBS for LVEF less than 40%?: No Reason(s) for not prescribing ARBS:: Not indicated HF Pt with Afib discharged with Warfarin?: No Reason(s) for not prescribing Warfarin:: Not indicated HF Pt discharged on evidence-based Beta Navin?: Yes Plan Discharge Plan: Discharged to [facility] assisted living facility. Arrange home health physical therapy. Time Spent: Greater than 30 Minutes
[2016-07-10] MEDS ORDERED: TUBERCULIN,PURIF.PROT.DERIV. 5 TU/0.1 ML TEST 1 ML VIAL ID ONE (11:30)
[2016-07-10] MEDS ORDERED: DOXYCYCLINE HYCLATE 100 MG TABLET PO ONE (12:00)
[2016-07-10 13:18] VITALS: BP 132/64
[2016-07-10] MEDS: BACITRACIN ZINC OINTMENT 15 GM TP SCH (14:58)
[2016-07-10] MEDS ORDERED: DOXYCYCLINE HYCLATE 100 MG TABLET PO SCH (22:00)
== END 2016-07-10 16:42 | disposition home health service (06) | DRG 871 ==
LOC: ER 11:46 → UNDOADMIN 16:19 → EH 16:19 → 4N 07-02 00:14
DX: A41.50 Gram-negative sepsis, unspecified (principal); I50.31 Acute diastolic (congestive) heart failure; L03.115 Cellulitis of right lower limb; I13.0 Hypertensive heart and chronic kidney disease with heart failure and stage 1 through stage 4 chronic kidney disease, or unspecified chronic kidney disease; N18.4 Chronic kidney disease, stage 4 (severe); N17.9 Acute kidney failure, unspecified; I48.2 Chronic atrial fibrillation; E53.8 Deficiency of other specified B group vitamins; F01.50 Vascular dementia, unspecified severity, without behavioral disturbance, psychotic disturbance, mood disturbance, and anxiety; R65.20 Severe sepsis without septic shock; I67.2 Cerebral atherosclerosis; M10.9 Gout, unspecified; Z87.891 Personal history of nicotine dependence; S01.01XD Laceration without foreign body of scalp, subsequent encounter; E78.00 Pure hypercholesterolemia, unspecified; Z96.653 Presence of artificial knee joint, bilateral; M20.41 Other hammer toe(s) (acquired), right foot; Z60.2 Problems related to living alone
CPT/HCPCS: 36415; 70450; 71010; 80048; 80053; 81001; 82550; 82607; 83880; 84443; 84484; 85025; 87040; 87077; 87086; 87186; 93005; 93010; 93306; 93970; 96374; 96375; 99285; G8978-GP; G8979-GP; J0295; J1644; J1940; J2270; J2405; J3490

== ENCOUNTER 2016-08-10 18:00 | Emergency (ER) | payer MEDICARE ==
--- NOTE | 2016-08-10 19:18 | ER Document Report ---
ED General - General Chief Complaint: Altered Mental Status Stated Complaint: ALTERED MENTAL STATUS Notes: Patient is an 85 year old man who has a past medical history of dementia, CKD, HTN, who presents from his half-way with stated facility concerns that he is "not acting right". EMS states that no further clarification was given unable with the staff meant by this. The patient himself denies any complaints. He denies any chest pain, shortness of breath, abdominal pain, vomiting or diarrhea. No weakness or numbness. States "I don't know why the hell they sent me here, I told them I was fine". TRAVEL OUTSIDE OF THE [place] IN LAST 30 DAYS: No - Related Data Allergies/Adverse Reactions: No Known Allergies Allergy (Unverified 07/08/16 02:37) Past Medical History - General Information source: Patient - Social History Smoking Status: Never Smoker Frequency of alcohol use: None Drug Abuse: None Lives with: [facility] Family History: None - Past Medical History Cardiac Medical History: Reports: Hx Hypercholesterolemia, Hx Hypertension Pulmonary Medical History: Neurological Medical History: Denies: Hx Seizures Renal/ Medical History: Reports: Hx End Stage Renal Disease Musculoskeltal Medical History: Reports Hx Arthritis, Reports Hx Gout Psychiatric Medical History: Reports: Hx Dementia Denies: Hx Depression Past Surgical History: Reports: Hx Orthopedic Surgery - knee replacement b/l. Denies: Hx Open Heart Surgery Review of Systems - Review of Systems Notes: Constitutional: Negative for fever. HENT: Negative for sore throat. Eyes: Negative for visual changes. Cardiovascular: Negative for chest pain. Respiratory: Negative for shortness of breath. Gastrointestinal: Negative for abdominal pain, vomiting or diarrhea. Genitourinary: Negative for dysuria. Musculoskeletal: Negative for back pain. Skin: Negative for rash. Neurological: Negative for headaches, weakness or numbness. 10 point ROS negative except as marked above and in HPI. Physical Exam - Vital signs Interpretation: Hypertensive Notes: PHYSICAL EXAMINATION: GENERAL: Well-appearing, well-nourished and in no acute distress. HEAD: Atraumatic, normocephalic. EYES: Pupils equal round and reactive to light, extraocular movements intact, sclera anicteric, conjunctiva are normal. ENT: nares patent, oropharynx clear without exudates. Moist mucous membranes. NECK: Normal range of motion, supple without lymphadenopathy LUNGS: Breath sounds clear to auscultation bilaterally and equal. No wheezes rales or rhonchi. HEART: Regular rate and rhythm without murmurs ABDOMEN: Soft, nontender, normoactive bowel sounds. No guarding, no rebound. No masses appreciated. EXTREMITIES: Normal range of motion, no pitting or edema. No cyanosis. NEUROLOGICAL: No focal neurological deficits. Moves all extremities spontaneously and on command. PSYCH: Normal mood, normal affect. SKIN: Warm, Dry, normal turgor, no rashes or lesions noted. Course - Re-evaluation Re-evalutation: 08/10/16 19:16 Patient presents with half-way stated that he is "not acting like himself "patient himself denies any concerns. Denies any pain. He is alert and oriented to himself, location but Mrs. year and month which is actually improved from documentation at time of discharge 6 weeks ago. Patient can name the president, his date of , and states clearly he does not wish to be here in the emergency department stating is unsure why the half-way sent him here. He denies any abdominal pain, chest pain, shortness of breath, weakness or numbness. He has no focal findings on examination to indicate a need for laboratory assessments. A chest x-ray obtained in triage does not demonstrate any acute process and his EKG is at his baseline. His blood pressure is mildly elevated but again this is chronic. The remainder his vitals are within normal limits and he is overall extremely well in appearance. At this time will discharge with return precautions and follow-up recommendations. Patient is in agreement with this plan and has verbalized understanding of return precautions and the need for primary care follow-up in the next 24-72 hours. - Laboratory Result Diagrams: 08/10/16 19:10 08/10/16 19:10 - Diagnostic Test Radiology reviewed: Image reviewed, Reports reviewed Radiology results interpreted by me: 08/10/16 19:18 Chest x-ray: No acute infiltrate - EKG Interpretation by Me Additional EKG results interpreted by me: 08/10/16 19:19 Sinus rhythm. Rate 80. Left bundle branch block. No scarbosa criteria. Discharge - Discharge Clinical Impression: Essential hypertension, Advanced dementia Condition: Good Disposition: HOME, SELF-CARE Additional Instructions: Please return to the emergency room immediately if you experience any concerning symptoms including high fevers, severe headache, chest pain, difficulty breathing, abdominal pain, slurred speech, numbness or weakness in your arms or legs, or any other symptom that concerns you. Referrals: LUI DUTTA MD [Primary Care Provider] - Follow up as needed
--- NOTE | 2016-08-10 23:35 | EKG REPORT ---
SEVERITY:- ABNORMAL ECG - SINUS RHYTHM LEFT ATRIAL ABNORMALITY LEFT BUNDLE BRANCH BLOCK INFERIOR Q WAVES, POSSIBLY DUE TO LBBB : Confirmed by: Lavonne Hercules MD 10-Aug-2016 23:35:01
[2016-08-11 02:57] VITALS: BP 140/69
== END 2016-08-11 00:30 | disposition home or self-care (01) ==
LOC: ER 18:00
DX: F03.90 Unspecified dementia, unspecified severity, without behavioral disturbance, psychotic disturbance, mood disturbance, and anxiety (principal); I12.0 Hypertensive chronic kidney disease with stage 5 chronic kidney disease or end stage renal disease; N18.6 End stage renal disease; I44.7 Left bundle-branch block, unspecified
CPT/HCPCS: 71010; 93005; 93010; 99285

== ENCOUNTER 2016-08-15 10:28 | Emergency (ER) | payer OTHER, MEDICARE ==
--- NOTE | 2016-08-15 11:02 | ER Document Report ---
ED GI/ - General Time seen by provider: 11:05 Mode of Arrival: Medic Information source: Patient, Relative, Emergency Med Personnel, [facility] Records TRAVEL OUTSIDE OF THE [place] IN LAST 30 DAYS: No - HPI Patient complains to provider of: Dysuria Onset: Other - see HPI note <AYANNAFABIANO TUBBS - Last Filed: 08/15/16 11:48> <CHRISTYBREANNA - Last Filed: 08/15/16 18:52> - General Chief Complaint: Urinary Problem Stated Complaint: URINARY SYMPTONS Notes: Patient is a 85 year old male presenting to the emergency department for dysuria. Patient states that he is having some burning and some difficulty controlling his urination. Patient was seen in the ED on Saturday08/10/16 for some altered mental status and again yesterday 08/14/16 for some weakness and some urinary symptoms. Patient had a WBC of 19,900 yesterday. Patient has had previous UTIs in the past. Patient was also seen in June and was placed back into a nursing/care facility at [facility]. Prior to this visit patient had signed out of the prison and was living at home but had not been taking care of himself. Patient's relatives state patient is having some diarrhea today as well as some chills and sweats. Patient has no known allergies. (FABIANO PANDEY) This 85-year-old male patient brought to emergency room with a complaint of burning with urination and difficulty controlling his urination. He was admitted here and mid June 2016 with cellulitis to his lower extremities. He is living by himself at that time and unable to care for himself. He had signed himself out of a prison previously due to not wanting to cover the cost. He was discharged to [facility] diet using a wheelchair at that time. According to the family he eventually regained enough strength to use a walker until the past week and he has been getting more weak. He was brought to the emergency room on 08/10/2016 for altered mental status. No lab work was done, document show that he was alert and oriented and stated no idea why he was sent sent over here. He was discharged back to [facility]. He was brought to emergency room yesterday for complaint of weakness. The workup looking at urine and chest x-ray and blood work was unremarkable except for a white blood cell count of 19,900 with a shift, serum CO2 of 17 which was 22 previously and a slight worsening of his stage IV renal insufficiency. This was not addressed in the chart yesterday. He was returned here today complaining of burning with urination and trouble controlling his urine. Specifically he states when he starts urinating and tries to stop it keeps coming. He does have some dementia. There is also a history of possibly some diarrhea today. He is alert, reasonably oriented but is demented. He states the only discomfort he has at this time is his low back which she attributes to being in the bed. He does have a history of low back pain for many years. His white blood cell count today is 24,000 with 82 segs, no bands, 11 lymphs and 16 monocytes. His BUN and creatinine are slightly lower today than they were yesterday, and the serum CO2 remaines 17. His back is not tender to palpate or percuss, and he is later stated that it wasn't hurting too much and wasn't any worse than normal. His lungs are clear. His chest x-ray is unremarkable. His abdomen is soft, nontender with active bowel sounds. His sacrum area has some erythema but no break in the skin. His anus does not show hemorrhoids abscesses or other lesions. Digital rectal exam shows a patchy left anal sphincter, somewhat enlarged prostate that is not tender to palpate. He uses all of his extremities, is able to do coordinated movements and has reasonable and equal strength in the extremities. Other than the elevated white blood cell count and an increase in his weakness, there are no objective findings found today to explain his increased weakness or his leukocytosis. (BREANNA HARRISON) - Related Data Allergies/Adverse Reactions: No Known Allergies Allergy (Unverified 07/08/16 02:37) Past Medical History - General Information source: Patient - Social History Smoking Status: Former Smoker Cigarette use (# per day): No Chew tobacco use (# tins/day): No Frequency of alcohol use: None Drug Abuse: None Family History: None - Past Medical History Cardiac Medical History: Reports: Hx Congestive Heart Failure, Hx Hypercholesterolemia, Hx Hypertension Pulmonary Medical History: Renal/ Medical History: Reports: Hx End Stage Renal Disease Musculoskeltal Medical History: Reports Hx Arthritis, Reports Hx Gout Psychiatric Medical History: Reports: Hx Dementia Past Surgical History: Reports: Hx Orthopedic Surgery - knee replacement b/l - Immunizations Hx Diphtheria, Pertussis, Tetanus Vaccination: Yes <FABIANO PANDEY - Last Filed: 08/15/16 11:48> Review of Systems - Review of Systems Constitutional: See HPI, Chills, Diaphoresis EENT: No symptoms reported Cardiovascular: No symptoms reported Respiratory: No symptoms reported Gastrointestinal: See HPI, Diarrhea Genitourinary: See HPI, Burning Male Genitourinary: No symptoms reported Musculoskeletal: No symptoms reported Skin: No symptoms reported Hematologic/Lymphatic: No symptoms reported Neurological/Psychological: No symptoms reported -: Yes All other systems reviewed and negative <FABIANO PANDEY - Last Filed: 08/15/16 11:48> Physical Exam - Vital signs Interpretation: Normal - General General appearance: Appears well, Alert In distress: Mild - HEENT Head: Normocephalic, Atraumatic Eyes: Normal Pupils: PERRL Mouth/Lips: Other - poor dental hygiene Mucous membranes: Moist - Respiratory Respiratory status: No respiratory distress Chest status: Nontender Breath sounds: Normal Chest palpation: Normal - Cardiovascular Rhythm: Regular Heart sounds: Normal auscultation Murmur: No - Abdominal Inspection: Normal Distension: No distension Bowel sounds: Normal Tenderness: Nontender Organomegaly: No organomegaly - Back Back: Normal, Nontender - Extremities General upper extremity: Normal inspection, Normal ROM, Normal strength General lower extremity: Normal inspection, Normal ROM, Normal strength - Neurological Neuro grossly intact: Yes Cognition: Normal Orientation: AAOx4 Vera Coma Scale Eye Opening: Spontaneous Vera Coma Scale Verbal: Oriented [place] Coma Scale Motor: Obeys Commands Vera Coma Scale Total: 15 Speech: Normal - Psychological Associated symptoms: Normal affect, Normal mood - Skin Skin Temperature: Warm Skin Moisture: Dry <FABIANO PANDEY - Last Filed: 08/15/16 11:48> Course <FABIANO PANDEY Last Filed: 08/15/16 11:48> - Laboratory Result Diagrams: 08/15/16 12:15 08/15/16 12:15 - Diagnostic Test Radiology reviewed: Image reviewed, Reports reviewed - Chest x-ray shows stable moderate cardiomegaly without any acute process - EKG Interpretation by Ut EKG shows normal: Sinus rhythm, [place], Intervals, ST-T Waves. abnormal: QRS Complexes Rate: Normal - 64 [place]/QRS: LBBB P Waves: LAE When compared to previous EKG there are: No significant change - Consults Dr. aHrkins Consulted provider: other - Dr. Harkins is not willing to admit the patient for the weakness or laboratory abnormalities that have been found over the last 2 days. She requests the patient be discharged back to [facility] and follow -up with his primary care provider tomorrow. <BREANNA HARRISON - Last Filed: 08/15/16 18:52> - Re-evaluation Re-evalutation: 08/15/16 18:50 I explained to the son that the physical exam does not provide an explanation for his elevated white count or any of his symptoms other than possibly BPH causing his urinary problems. I also explained that the hospitalist service was willing to put him in the hospital without more objective findings and a reason to be hospitalized. The hospitalist requested that the patient be discharged back to [facility] and to follow-up with his primary care provider tomorrow for further evaluation. (BREANNA HARRISON) - Vital Signs Vital signs: Temp Pulse Resp BP Pulse Ox 97.4 F 65 19 119/70 96 08/15/16 10:34 08/15/16 10:34 08/15/16 15:01 08/15/16 15:01 08/15/16 15:01 - Laboratory Laboratory results interpreted by me: 08/15/16 08/15/16 08/15/16 11:57 12:15 12:15 WBC 24.0 H RBC 3.78 L Hgb 11.1 L Hct 34.9 L MCHC 31.8 L RDW 15.6 H Seg Neuts % (Manual) 82 H Lymphocytes % (Manual) 11 L Abs Neuts (Manual) 19.7 H Carbon Dioxide 17 L BUN 51 H Creatinine 2.76 H Est GFR ( Amer) 27 L Est GFR (Non-Af Amer) 22 L ALT 19 L Creatine Kinase 32 L NT-Pro-B Natriuret Pep Albumin 3.1 L Urine Blood SMALL H Ur Leukocyte Esterase TRACE H 08/15/16 12:15 WBC RBC Hgb Hct MCHC RDW Seg Neuts % (Manual) Lymphocytes % (Manual) Abs Neuts (Manual) Carbon Dioxide BUN Creatinine Est GFR ( Amer) Est GFR (Non-Af Amer) ALT Creatine Kinase NT-Pro-B Natriuret Pep 7720 H Albumin Urine Blood Ur Leukocyte Esterase Discharge <FABIANO PANDEY - Last Filed: 08/15/16 11:48> <BREANNA HARRISON - Last Filed: 08/15/16 18:52> - Discharge Clinical Impression: Weakness Leukocytosis Qualifiers: Leukocytosis type: unspecified Qualified Code(s): D72.829 - Elevated white blood cell count, unspecified Condition: Stable Disposition: HOME, SELF-CARE Additional Instructions: NO CLEAR EXPLANATION FOR YOUR SYMPTOMS OR ELEVATED WHITE BLOOD CELL COUNT WAS FOUND. THE HOSPITALIST SERVICE REQUESTS THAT YOU FOLLOW UP WITH YOUR DOCTOR TOMORROW FOR FURTHER EVALUATION OF YOUR SYMPTOMS. RETURN TO THE EMERGENCY ROOM IF ANY NEW OR WORSENING SYMPTOMS. Referrals: LUI DUTTA MD [Primary Care Provider] - Follow up tomorrow Scribe Attestation: 08/15/16 18:52 I personally performed the services described in the documentation, reviewed and edited the documentation which was dictated to the scribe in my presence, and it accurately records my words and actions. (BREANNA HARRISON) Scribe Documentation - Scribe Written by Scribcris:: Fabiano Pandey 08/15/16 11:30 acting as scribe for :: Christy <FABIANO PANDEY - Last Filed: 08/15/16 11:48>
[2016-08-15 12:21] LABS: APPEARANCE,URINE SLIGHTLY-CLOUDY; BILIRUBIN,URINE NEGATIVE (NEGATIVE); GLUCOSE, URINE NEGATIVE (NEGATIVE); KETONES,URINE NEGATIVE (NEGATIVE); LEUKOCYTE ESTERASE,URINE TRACE (NEGATIVE); NITRITE,URINE NEGATIVE (NEGATIVE); PROTEIN,URINE NEGATIVE (NEGATIVE); UROBILINOGEN,URINE NEGATIVE mg/dL (<2.0)
[2016-08-15 13:17] LABS: HEMATOCRIT 34.9 % (37.9-51.0); HEMOGLOBIN 11.1 g/dL (13.5-17.0); HGB HCT DIFFERENCE -1.6; MEAN CORPUSCULAR HEMOGLOBIN 29.4 pg (27.0-33.4); MEAN CORPUSCULAR HGB CONC 31.8 g/dL (32.0-36.0); MEAN CORPUSCULAR VOLUME 92 fl (80-97); RED BLOOD COUNT 3.78 10^6/uL (4.35-5.55); RED CELL DISTRIBUTION WIDTH 15.6 % (11.5-14.0)
[2016-08-15 13:30] LABS: ALANINE AMINOTRANSFERASE 19 U/L (21-72); ALBUMIN 3.1 g/dL (3.5-5.0); ALKALINE PHOSPHATASE 77 U/L (38-126); ANION GAP 15 (5-19); ASPARTATE AMINO TRANSFERASE 19 U/L (17-59); BILIRUBIN,TOTAL 0.9 mg/dL (0.2-1.3); BLOOD UREA NITROGEN 51 mg/dL (7-20); CALCIUM 8.4 mg/dL (8.4-10.2); CARBON DIOXIDE 17 mmol/L (22-30); CHLORIDE 107 mmol/L (98-107); CREATINE KINASE 32 U/L (55-170); CREATININE RESULT 2.76 mg/dL (0.52-1.25); GLUCOSE 95 mg/dL (75-110); POTASSIUM 3.9 mmol/L (3.6-5.0); SODIUM 139.1 mmol/L (137-145); TOTAL PROTEIN 6.3 g/dL (6.3-8.2)
[2016-08-15 13:38] LABS: BASOPHILS % (MANUAL) 0 % (0-2); EOSINOPHILS % (MANUAL) 1 % (0-6); LYMPHOCYTES % (MANUAL) 11 % (13-45); TOTAL CELLS COUNTED 100
[2016-08-15 13:41] LABS: CREATINE KINASE MB 1.18 ng/mL (<4.55); RBC MORPHOLOGY COMMENT NORMO-CYTIC/CHROMIC; TOXIC GRANULATION 1+
[2016-08-15 13:43] LABS: TROPONIN I 0.041 ng/mL
[2016-08-15] MEDS ORDERED: HYDROCODONE/ACETAMINOPHEN 5-325 MG TABLET PO ONE (14:18)
[2016-08-15 20:06] VITALS: BP 131/68
--- NOTE | 2016-08-15 20:24 | EKG REPORT ---
SEVERITY:- ABNORMAL ECG - SINUS RHYTHM COMPLETE LBBB : Confirmed by: Josef Bear MD 15-Aug-2016 20:24:22
== END 2016-08-15 21:00 | disposition home or self-care (01) ==
LOC: ER 10:28
DX: R53.1 Weakness (principal); D72.829 Elevated white blood cell count, unspecified; R30.0 Dysuria; R68.83 Chills (without fever); R61 Generalized hyperhidrosis; I13.2 Hypertensive heart and chronic kidney disease with heart failure and with stage 5 chronic kidney disease, or end stage renal disease; N18.6 End stage renal disease; I50.9 Heart failure, unspecified; Z96.653 Presence of artificial knee joint, bilateral; Z87.891 Personal history of nicotine dependence
CPT/HCPCS: 36415; 71010; 80053; 81001; 82550; 82553; 83605; 83880; 84484; 85025; 87040; 93005; 93010; 99285

== ENCOUNTER 2016-08-17 12:59 | Inpatient (IN) | payer OTHER, MEDICARE ==
--- NOTE | 2016-08-17 13:12 | ER Document Report ---
ED General - General Stated Complaint: ALTERED MENTAL STATUS Mode of Arrival: Medic Information source: Patient, DrPatrick Office, [facility] Records Cannot obtain history due to: Altered mental status Notes: 85-year-old male history of dementia presents altered with increasing white count. Patient has been seen here now twice in the past few days, was also seen a primary care office yesterday. Patient's white count was elevated from 20-24 27,000 on those 3 visits. Patient mental status has worsened throughout. Patient does have a history of cellulitis TRAVEL OUTSIDE OF THE [place] IN LAST 30 DAYS: No - HPI Onset: Last week Onset/Duration: Persistent, Worse Quality of pain: No pain Severity: Mild Pain Level: Denies Associated symptoms: Weakness Exacerbated by: Denies Relieved by: Denies Similar symptoms previously: Yes Recently seen / treated by doctor: Yes - Related Data Allergies/Adverse Reactions: No Known Allergies Allergy (Unverified 07/08/16 02:37) Past Medical History - Social History Smoking Status: Never Smoker Cigarette use (# per day): No Chew tobacco use (# tins/day): No Smoking Education Provided: No Family History: None, Reviewed & Not Pertinent - Past Medical History Cardiac Medical History: Reports: Hx Congestive Heart Failure, Hx Hypercholesterolemia, Hx Hypertension Pulmonary Medical History: Neurological Medical History: Denies: Hx Seizures Renal/ Medical History: Reports: Hx End Stage Renal Disease. Denies: Hx Peritoneal Dialysis Musculoskeltal Medical History: Reports Hx Arthritis, Reports Hx Gout Psychiatric Medical History: Reports: Hx Dementia Denies: Hx Depression Past Surgical History: Reports: Hx Orthopedic Surgery - knee replacement b/l. Denies: Hx Open Heart Surgery - Immunizations Hx Diphtheria, Pertussis, Tetanus Vaccination: Yes Review of Systems - Review of Systems Notes: PHYSICAL EXAMINATION: GENERAL: Thin frail appearing male stated age HEAD: Atraumatic, normocephalic. EYES: Pupils equal round and reactive to light, extraocular movements intact, sclera anicteric, conjunctiva are normal. ENT: Nares patent, oropharynx clear without exudates. Moist mucous membranes. NECK: Normal range of motion, supple without lymphadenopathy LUNGS: Breath sounds clear to auscultation bilaterally and equal. No wheezes rales or rhonchi. HEART: Regular rate and rhythm without murmurs ABDOMEN: Soft, nontender, nondistended abdomen. No guarding, no rebound. No masses appreciated. Musculoskeletal: Normal range of motion, no pitting or edema. No cyanosis. NEUROLOGICAL: Cranial nerves grossly intact. Normal speech, normal gait. Normal sensory, motor exams PSYCH: Normal mood, normal affect. SKIN: Cellulitic component noted -: Yes ROS unobtainable due to patient's medical condition Course - Re-evaluation Re-evalutation: 08/17/16 13:41 Given the patient's white count has been worsening as well as altered mental status. I believe admission is required for further evaluation the patient's presentation. Lab work is pending at this time Dr. Harkins has accepted the patient - Diagnostic Test Radiology reviewed: Image reviewed - EKG Interpretation by Me EKG shows normal: Sinus rhythm, Intervals, QRS Complexes [place]/QRS: LBBB When compared to previous EKG there are: No significant change Discharge - Discharge Clinical Impression: CKD (chronic kidney disease) stage 4, GFR 15-29 ml/min, Encephalopathy Altered mental status Qualifiers: Altered mental status type: unspecified Qualified Code(s): R41.82 - Altered mental status, unspecified Leukocytosis Qualifiers: Leukocytosis type: unspecified Qualified Code(s): D72.829 - Elevated white blood cell count, unspecified Condition: Stable Disposition: ADMITTED INPATIENT Admitting Provider: Hospitalist Unit Admitted: Telemetry
[2016-08-17 14:04] LABS: HEMATOCRIT 32.9 % (37.9-51.0); HEMOGLOBIN 10.6 g/dL (13.5-17.0); HGB HCT DIFFERENCE -1.1; MEAN CORPUSCULAR HEMOGLOBIN 29.2 pg (27.0-33.4); MEAN CORPUSCULAR HGB CONC 32.3 g/dL (32.0-36.0); MEAN CORPUSCULAR VOLUME 91 fl (80-97); RED BLOOD COUNT 3.63 10^6/uL (4.35-5.55); RED CELL DISTRIBUTION WIDTH 15.7 % (11.5-14.0)
[2016-08-17 14:10] LABS: PROTHROMBIN TIME 14.6 SEC (11.4-15.4)
[2016-08-17 14:31] LABS: ALANINE AMINOTRANSFERASE 15 U/L (21-72); ALBUMIN 2.9 g/dL (3.5-5.0); ALKALINE PHOSPHATASE 92 U/L (38-126); ANION GAP 14 (5-19); ASPARTATE AMINO TRANSFERASE 14 U/L (17-59); BILIRUBIN,TOTAL 0.9 mg/dL (0.2-1.3); BLOOD UREA NITROGEN 53 mg/dL (7-20); CALCIUM 8.8 mg/dL (8.4-10.2); CARBON DIOXIDE 18 mmol/L (22-30); CHLORIDE 107 mmol/L (98-107); CREATININE RESULT 3.16 mg/dL (0.52-1.25); GLUCOSE 112 mg/dL (75-110); POTASSIUM 3.6 mmol/L (3.6-5.0); SODIUM 139.4 mmol/L (137-145)
[2016-08-17] MEDS ORDERED: NORMAL SALINE 1000 ML 1,000 ML IV ONE (14:35)
[2016-08-17 14:38] LABS: WHITE BLOOD COUNT 34.4 10^3/uL (4.0-10.5)
[2016-08-17 14:41] LABS: BAND NEUTROPHILS % (MANUAL) 5 % (3-5); BASOPHILS % (MANUAL) 0 % (0-2); EOSINOPHILS % (MANUAL) 0 % (0-6); LYMPHOCYTES % (MANUAL) 4 % (13-45); TOTAL CELLS COUNTED 100
[2016-08-17 14:42] LABS: ANISOCYTOSIS SLIGHT; BURR CELLS 1+; OVALOCYTES SLIGHT; POIKILOCYTOSIS 1+; POLYCHROMASIA SLIGHT; TOXIC GRANULATION 1+
[2016-08-17 14:43] LABS: VENOUS BLOOD BASE EXCESS -6.6 mmol/L; VENOUS BLOOD HCO3 17.2 mmol/L (20-32); VENOUS BLOOD PCO2 29.4 mmHg (35-63); VENOUS BLOOD PH 7.39 (7.30-7.42)
[2016-08-17 14:51] LABS: APPEARANCE,URINE CLOUDY; BILIRUBIN,URINE NEGATIVE (NEGATIVE); GLUCOSE, URINE NEGATIVE (NEGATIVE); KETONES,URINE NEGATIVE (NEGATIVE); LEUKOCYTE ESTERASE,URINE NEGATIVE (NEGATIVE); NITRITE,URINE NEGATIVE (NEGATIVE); PROTEIN,URINE NEGATIVE (NEGATIVE); URINE SPECIFIC GRAVITY 1.016; UROBILINOGEN,URINE NEGATIVE mg/dL (<2.0)
[2016-08-17] MEDS ORDERED: ONDANSETRON HCL INJ/PF 4 MG/2 ML SDV IV PRN (15:27)
[2016-08-17] MEDS ORDERED: IPRATROPIUM/ALBUTEROL 0.5-2.5 MG/3 ML AMPUL NEB PRN (15:27)
[2016-08-17] MEDS ORDERED: ACETAMINOPHEN 325 MG TABLET PO PRN (15:27)
[2016-08-17] MEDS ORDERED: NORMAL SALINE 1000 ML 500 ML IV ONE (15:40)
[2016-08-17] MEDS ORDERED: METRONIDAZOLE 500 MG/NS RTU 100 ML IV ONE (16:15)
[2016-08-17] MEDS ORDERED: VANCOMYCIN HCL INJ 500 MG VIAL PO ONE (16:30)
[2016-08-17] MEDS: NORMAL SALINE 1000 ML 1,000 ML IV PRN (17:21)
--- NOTE | 2016-08-17 17:30 | PDOC H&P ---
History of Present Illness Admission Date/PCP: 08/17/16 15:14 LUI DUTTA MD History of Present Illness: TERE QUEEN is a 85 year old male who presents to the emergency department with complaints of increasing white count. Patient was seen in the emergency department twice in the past several days and his primary care physician yesterday. Patient was noted to have a white count prior of 20-24-27k. Patient had complained of urinary symptoms. I did discuss this case yesterday with Dr. Deutsch but did not examine the patient. Dr. Deutsch reported patient's only complaint was of weakness and that he had a white count. He was unable to corroborate any additional symptomatology that would point to active infection. In fact he pointed out that patient's labs were remarkably improved to stable. At that time, given the only complaint is leukocytosis, I did request that he follow up with his primary care physician for evaluation. Today, I spoke patient and he reports that he's had diarrhea for the past several days. Patient is found to have C. difficile. Patient is admitted for sepsis with C. difficile colitis patient also has mildly worsening acute on chronic renal failure. Past Medical History Cardiac Medical History: Reports: Congestive Heart Failure, Hyperlipidema, Hypertension Pulmonary Medical History: Neurological Medical History: Denies: Seizures Renal/ Medical History: Reports: End Stage Renal Disease Musculoskeltal Medical History: Reports: Arthritis, Gout Psychiatric Medical History: Reports: Dementia Denies: Depression Hematology: Denies: Anemia, Hemophilia, Sickle Cell Disease Past Surgical History Past Surgical History: Reports: Orthopedic Surgery - knee replacement b/l Social History Smoking Status: Never Smoker Frequency of Alcohol Use: None Hx Recreational Drug Use: No Drugs: None Hx Prescription Drug Abuse: No - Advance Directive Resuscitation Status: Full Code Surrogate healthcare decision maker:: Albertina Lopez Family History Family History: None Parental Family History Reviewed: Yes Children Family History Reviewed: Yes Sibling(s) Family History Reviewed.: Yes Medication/Allergy Home Medications: Acetaminophen [Tylenol 325 mg Tablet] 650 mg PO Q4HP PRN 08/17/16 Allopurinol [Zyloprim 100 mg Tablet] 100 mg PO DAILY 08/17/16 Amlodipine Besylate [Norvasc 10 mg Tablet] 10 mg PO DAILY 08/17/16 Aspirin [Ecotrin 81 mg EC Tablet] 81 mg PO DAILY 08/17/16 Atorvastatin Calcium [Lipitor 10 mg Tablet] 10 mg PO QHS 08/17/16 Bacitracin 1 applic TOP BID 08/17/16 Bisacodyl [Dulcolax 10 mg Supp.rect] 10 mg MT DAILYP PRN 08/17/16 Calcitriol [Rocaltrol 0.25 mcg Capsule] 2 cap PO MOWEFR@1000 08/17/16 Carvedilol [Coreg 6.25 mg Tablet] 6.25 mg PO Q12 08/17/16 Cyanocobalamin (Vitamin B-12) [Vitamin B-12 1000 mcg Tablet] 1,000 mcg PO DAILY 08/17/16 Docusate Sodium [Colace 100 mg Capsule] 100 mg PO BID 08/17/16 Ferrous Sulfate [Feosol 325 mg Tablet] 325 mg PO DAILY 08/17/16 Hydrocodone/Acetaminophen [Hydrocodon-Acetaminophen 5-325] 1 each PO Q8H Isosorbide Dinitrate [Isordil Titradose 10 mg Tablet] 10 mg PO Q12 08/17/16 Nystatin [Mycostatin Topical Powder 15 gm] 1 applic TOP TID 08/17/16 Sennosides [Senna] 8.6 mg PO QHS 08/17/16 Tamsulosin HCl [Flomax 0.4 mg Cap.sr] 0.4 mg PO QHS 08/17/16 Torsemide [Demadex 20 mg Tablet] 10 mg PO DAILY 08/17/16 Allergies/Adverse Reactions: No Known Allergies Allergy (Unverified 07/08/16 02:37) Review of Systems Constitutional: PRESENT: anorexia, chills, fatigue, weakness. ABSENT: fever(s) , headache(s), weight gain, weight loss Eyes: ABSENT: visual disturbances Ears: ABSENT: hearing changes Cardiovascular: ABSENT: chest pain, dyspnea on exertion, edema, orthropnea, palpitations Respiratory: ABSENT: cough, hemoptysis Gastrointestinal: PRESENT: abdominal pain - Mild, diarrhea, nausea. ABSENT: coffee ground emesis, constipation, hematemesis, hematochezia, melena, vomiting Genitourinary: ABSENT: dysuria, hematuria Musculoskeletal: ABSENT: joint swelling Integumentary: ABSENT: rash, wounds Neurological: ABSENT: abnormal gait, abnormal speech, confusion, dizziness, focal weakness, syncope Psychiatric: ABSENT: anxiety, depression, homidical ideation, suicidal ideation Endocrine: ABSENT: cold intolerance, heat intolerance, polydipsia, polyuria Hematologic/Lymphatic: ABSENT: easy bleeding, easy bruising Physical Exam Vital Signs: Temp Pulse Resp BP Pulse Ox 98.1 F 17 103/56 L 100 08/17/16 13:17 08/17/16 14:01 08/17/16 14:01 08/17/16 14:01 General appearance: PRESENT: no acute distress, hard of hearing, well-developed , well-nourished Exam: Patient is extremely hard of hearing Head exam: PRESENT: atraumatic, normocephalic Eye exam: PRESENT: conjunctiva pink, EOMI, PERRLA. ABSENT: conjunctival injection, conjunctiva pale, scleral icterus Ear exam: PRESENT: normal external ear exam Mouth exam: PRESENT: dry mucosa, tongue midline Neck exam: ABSENT: JVD, lymphadenopathy, thyromegaly, tracheal deviation Respiratory exam: PRESENT: clear to auscultation jhonny. ABSENT: rales, rhonchi, wheezes Cardiovascular exam: PRESENT: irregular rhythm, +S1, +S2. ABSENT: diastolic murmur, gallop, rubs, systolic murmur, tachycardia Pulses: PRESENT: normal dorsalis pedis pul Vascular exam: PRESENT: normal capillary refill GI/Abdominal exam: PRESENT: distended - Mildly distended, normal bowel sounds, soft. ABSENT: firm, guarding, mass, Anderson's sign, organolmegaly, rebound, rigid, tenderness Rectal exam: PRESENT: deferred Extremities exam: PRESENT: full ROM. ABSENT: calf tenderness, clubbing, pedal edema Neurological exam: PRESENT: alert, awake, oriented to person, oriented to place , oriented to time, oriented to situation, CN II-XII grossly intact. ABSENT: motor sensory deficit Psychiatric exam: PRESENT: appropriate affect, normal mood. ABSENT: homicidal ideation, suicidal ideation Skin exam: PRESENT: dry, intact, warm. ABSENT: cyanosis, rash Results Laboratory Results: 08/17/16 08/17/16 08/17/16 13:40 13:40 13:40 WBC 34.4 H* Hgb 10.6 L Hct 32.9 L Plt Count 172 Seg Neuts % (Manual) 85 H Band Neutrophils % 5 INR 1.10 VBG pH Sodium 139.4 Potassium 3.6 Chloride 107 Carbon Dioxide 18 L Anion Gap 14 BUN 53 H Creatinine 3.16 H Glucose 112 H Lactic Acid Calcium 8.8 Total Bilirubin 0.9 Direct Bilirubin 0.0 AST 14 L ALT 15 L Alkaline Phosphatase 92 Total Protein 6.0 L Albumin 2.9 L Ur Specific [place] Urine Blood Urine WBC (Auto) Urine RBC (Auto) U Hyaline Cast (Auto) Urine Bacteria (Auto) Squamous Epi Cells Auto Urine Mucus (Auto) C. difficile Tox (PCR) 08/17/16 08/17/16 08/17/16 13:40 14:15 14:15 WBC Hgb Hct Plt Count Seg Neuts % (Manual) Band Neutrophils % INR VBG pH Sodium Potassium Chloride Carbon Dioxide Anion Gap BUN Creatinine Glucose Lactic Acid 2.5 H Calcium Total Bilirubin Direct Bilirubin AST ALT Alkaline Phosphatase Total Protein Albumin Ur Specific [place] 1.016 Urine Blood MODERATE H Urine WBC (Auto) 3 Urine RBC (Auto) 13 U Hyaline Cast (Auto) 4 Urine Bacteria (Auto) TRACE Squamous Epi Cells Auto <1 Urine Mucus (Auto) RARE C. difficile Tox (PCR) Pending 08/17/16 14:29 WBC Hgb Hct Plt Count Seg Neuts % (Manual) Band Neutrophils % INR VBG pH 7.39 Sodium Potassium Chloride Carbon Dioxide Anion Gap BUN Creatinine Glucose Lactic Acid Calcium Total Bilirubin Direct Bilirubin AST ALT Alkaline Phosphatase Total Protein Albumin Ur Specific [place] Urine Blood Urine WBC (Auto) Urine RBC (Auto) U Hyaline Cast (Auto) Urine Bacteria (Auto) Squamous Epi Cells Auto Urine Mucus (Auto) C. difficile Tox (PCR) Impressions: Chest X-Ray 08/17/16 13:02 IMPRESSION: Mild cardiomegaly without evidence of acute cardiopulmonary disease. Assessment & Plan - Diagnosis (1) Sepsis Qualifiers: Sepsis type: sepsis due to unspecified organism Qualified Code(s): A41.9 - Sepsis, unspecified organism Is this a current diagnosis for this admission?: YesPlan: Treat patient for his C. difficile colitis. Have also obtain blood and urine cultures as well. Patient does have a history of unusual previous bacterial infections including Acinetobacter. Initiate patient on gentle hydration. Maintain a map of 65. (2) Acute worsening of stage 4 chronic kidney disease Is this a current diagnosis for this admission?: YesPlan: Give gentle hydration. Likely secondary to diarrhea. (3) C. difficile colitis Is this a current diagnosis for this admission?: YesPlan: Place patient on IV Flagyl and oral Vancocin. He will need these for 14 days. (4) Chronic diastolic (congestive) heart failure Is this a current diagnosis for this admission?: Yes (5) Encephalopathy Is this a current diagnosis for this admission?: YesPlan: This is secondary to patient's sepsis. He is currently awake alert and oriented 3 and reports to me that he is having diarrhea. (6) Cerebral atherosclerosis Is this a current diagnosis for this admission?: Yes (7) Chronic atrial fibrillation Is this a current diagnosis for this admission?: Yes (8) Hematuria Is this a current diagnosis for this admission?: Yes (9) Vascular dementia Qualifiers: Dementia behavioral disturbance: without behavioral disturbance Qualified Code(s): F01.50 - Vascular dementia without behavioral disturbance Is this a current diagnosis for this admission?: YesPlan: Patient if he has dementia at all likely has very mild dementia. I did take care of this patient approximately 2 months ago with my last contact being on and his current mentation is quite similar to previous. Continue supportive care (10) Vitamin B 12 deficiency Is this a current diagnosis for this admission?: YesPlan: Continue vitamin B-12 (11) Weakness Is this a current diagnosis for this admission?: YesPlan: We'll consult physical therapy. Encourage patient out of bed to chair 3 times a day. - Time Time Spent: 50 to 70 Minutes Medications reviewed and adjusted accordingly: Yes Anticipated discharge: Acute Rehab - Inpatient Certification Based on my medical assessment, after consideration of the patient's comorbidities, presenting symptoms, or acuity I expect that the services needed warrant INPATIENT care.: Yes I certify that my determination is in accordance with my understanding of Medicare's requirements for reasonable and necessary INPATIENT services [42 CFR 412.3e].: Yes Medical Necessity: Need For IV Fluids, Need for IV Antibiotics, Risk of Complication if Not Cared For in Hospital Post Hospital Care: D/C Revenue Specialist Documentation
[2016-08-17 17:54] LABS: CREATINE KINASE MB 1.01 ng/mL (<4.55); TROPONIN I 0.024 ng/mL
--- NOTE | 2016-08-17 18:52 | EKG REPORT ---
SEVERITY:- ABNORMAL ECG - SINUS RHYTHM LEFT BUNDLE BRANCH BLOCK : Confirmed by: Josef Bear MD 17-Aug-2016 18:51:44
[2016-08-17] MEDS: ATORVASTATIN CALCIUM 10 MG TABLET PO SCH (21:36)
[2016-08-17] MEDS: HEPARIN SOD (PORCINE) 5,000 UNIT/ML 1 ML SYRINGE SUBCUT SCH (21:36)
[2016-08-17] MEDS: CARVEDILOL 6.25 MG TABLET PO SCH (21:36)
[2016-08-17] MEDS: FAMOTIDINE 20 MG TABLET PO SCH (21:37)
[2016-08-17] MEDS: HYDROCODONE/ACETAMINOPHEN 5-325 MG TABLET PO PRN (21:37)
[2016-08-17] MEDS: TAMSULOSIN HCL 0.4 MG CAP.SR.24H PO SCH (21:37)
[2016-08-17] MEDS: VANCOMYCIN HCL INJ 500 MG VIAL PO SCH ×2 (21:48→23:55)
[2016-08-17] MEDS: BACITRACIN ZINC OINTMENT 15 GM TOP SCH (21:48)
[2016-08-17] MEDS: METRONIDAZOLE 500 MG/NS RTU 100 ML IV SCH ×2 (21:48→23:25)
[2016-08-17 22:13] LABS: CREATINE KINASE MB 1.2 ng/mL (<4.55); TROPONIN I 0.023 ng/mL
[2016-08-17] MEDS ORDERED: VANCOMYCIN HCL INJ 1000 MG VIAL ONE (23:31)
[2016-08-18] MEDS: NORMAL SALINE 1000 ML 1,000 ML IV PRN ×2 (03:35→13:32)
[2016-08-18] MEDS: HEPARIN SOD (PORCINE) 5,000 UNIT/ML 1 ML SYRINGE SUBCUT SCH ×3 (05:26→21:33)
[2016-08-18] MEDS: METRONIDAZOLE 500 MG/NS RTU 100 ML IV SCH ×4 (05:26→23:21)
[2016-08-18] MEDS: VANCOMYCIN HCL INJ 500 MG VIAL PO SCH ×4 (05:40→23:21)
[2016-08-18 05:42] LABS: ANION GAP 12 (5-19); BLOOD UREA NITROGEN 51 mg/dL (7-20); CALCIUM 7.9 mg/dL (8.4-10.2); CARBON DIOXIDE 12 mmol/L (22-30); CHLORIDE 115 mmol/L (98-107); GLUCOSE 87 mg/dL (75-110); MAGNESIUM 1.9 mg/dL (1.6-2.3); SODIUM 138.9 mmol/L (137-145)
[2016-08-18 05:43] LABS: HEMATOCRIT 29.2 % (37.9-51.0); HEMOGLOBIN 9.5 g/dL (13.5-17.0); HGB HCT DIFFERENCE -0.7; MEAN CORPUSCULAR HEMOGLOBIN 29.5 pg (27.0-33.4); MEAN CORPUSCULAR HGB CONC 32.6 g/dL (32.0-36.0); MEAN CORPUSCULAR VOLUME 91 fl (80-97); RED BLOOD COUNT 3.22 10^6/uL (4.35-5.55); RED CELL DISTRIBUTION WIDTH 15.3 % (11.5-14.0)
[2016-08-18 05:53] LABS: CREATINE KINASE MB 0.5 ng/mL (<4.55); TROPONIN I 0.031 ng/mL
[2016-08-18 05:55] LABS: CREATINE KINASE < 20 U/L (55-170)
[2016-08-18] MEDS: POTASSI CL 20 MEQ/50 ML RIDER 20 MEQ/50 ML RTUPB IV SCH ×2 (06:17→07:46)
[2016-08-18 06:34] LABS: BAND NEUTROPHILS % (MANUAL) 4 % (3-5); BASOPHILS % (MANUAL) 0 % (0-2); EOSINOPHILS % (MANUAL) 0 % (0-6); LYMPHOCYTES % (MANUAL) 3 % (13-45); TOTAL CELLS COUNTED 100
[2016-08-18 06:35] LABS: TOXIC GRANULATION 2+
[2016-08-18 06:36] LABS: ANISOCYTOSIS SLIGHT; POIKILOCYTOSIS 2+
[2016-08-18 06:37] LABS: BURR CELLS 1+; OVALOCYTES 1+; TEAR DROP CELLS SLIGHT
[2016-08-18] MEDS ORDERED: DEXTROSE 5%-WATER 1000 ML 1,000 ML with SODIUM BICARBONATE 150 ML IV PRN ×2 (07:33)
[2016-08-18] MEDS: BACITRACIN ZINC OINTMENT 15 GM TOP SCH ×2 (09:36→17:56)
[2016-08-18] MEDS: CARVEDILOL 6.25 MG TABLET PO SCH ×2 (09:42→21:32)
[2016-08-18] MEDS: ASPIRIN 81 MG TABLET, ENT COATED PO SCH (09:42)
[2016-08-18] MEDS: FAMOTIDINE 20 MG TABLET PO SCH ×2 (09:43→21:33)
[2016-08-18] MEDS: CYANOCOBALAMIN (VITAMIN B-12) 1,000 MCG TABLET PO SCH (09:44)
[2016-08-18] MEDS ORDERED: DEXTROSE 5%-WATER 1000 ML 1,000 ML with SODIUM BICARBONATE 150 MEQ IV PRN ×2 (10:57)
[2016-08-18] MEDS: ALBUMIN HUMAN 50 ML IV SCH ×2 (11:10→12:50)
[2016-08-18 12:49] LABS: ARTERIAL BLOOD O2 SATURATION 95.6 % (94-98)
--- NOTE | 2016-08-18 15:37 | PDOC PROGRESS REPORT ---
Subjective Progress Note for:: 08/18/16 Subjective:: Patient reports he's feeling better. Nursing reports patient had 4 stools overnight. He has had none so far today. Review of systems is difficult secondary to patient's difficulty hearing. Physical Exam Vital Signs: Temp Pulse Resp BP Pulse Ox 98.8 F 76 20 105/54 L 96 08/18/16 04:08 08/18/16 06:35 08/18/16 04:08 08/18/16 04:08 08/18/16 04:08 Intake & Output 08/17/16 08/18/16 08/19/16 06:59 06:59 06:59 Intake Total 1463 Balance 1463 Weight 75.6 kg Exam: General: Resting comfortably, but arouses and is appropriate, no acute respiratory distress HEENT: AT/NC, PERRL, EOMI, oropharynx is moist, pink, no scleral icterus, no conjunctival injection Neck: No JVD, trachea midline Chest: Clear to auscultation bilaterally, no wheezes rhonchi or rales CV: Regular rate and rhythm, normal S1 and S2, no rub, or gallop Abdomen: Soft, nontender to palpation, nondistended, active bowel sounds; no rebound, rigidity, or guarding Extremities: No cyanosis, clubbing; trace dependent edema Neuro: Cranial nerves II through XII are grossly intact without focal deficit Psych: Normal mood and affect Results Laboratory Results: 08/18/16 04:45 08/18/16 04:45 08/17/16 08/18/16 08/18/16 18:40 04:45 04:45 RBC 3.22 L Hgb 9.5 L Hct 29.2 L MCV 91 MCH 29.5 MCHC 32.6 RDW 15.3 H Plt Count 155 Seg Neutrophils % Not Reportable Lymphocytes % Not Reportable Monocytes % Not Reportable Eosinophils % Not Reportable Basophils % Not Reportable Absolute Neutrophils Not Reportable Absolute Lymphocytes Not Reportable Absolute Monocytes Not Reportable Absolute Eosinophils Not Reportable Absolute Basophils Not Reportable Sodium 138.9 Potassium 3.0 L* Chloride 115 H Carbon Dioxide 12 L Anion Gap 12 BUN 51 H Creatinine 2.70 H Est GFR ( Amer) 27 L Est GFR (Non-Af Amer) 23 L Glucose 87 Lactic Acid 1.4 Calcium 7.9 L Magnesium 1.9 0308/17/16 08/17/16 16:54 16:54 21:37 Creatine Kinase 23 L 24 L CK-MB (CK-2) 1.01 Troponin I 0.024 08/17/16 08/18/16 08/18/16 21:37 04:45 04:45 Creatine Kinase < 20 L CK-MB (CK-2) 1.20 0.50 Troponin I 0.023 0.031 Impressions: Chest X-Ray 08/17/16 13:02 IMPRESSION: Mild cardiomegaly without evidence of acute cardiopulmonary disease. Assessment & Plan - Diagnosis (1) Sepsis Qualifiers: Sepsis type: sepsis due to unspecified organism Qualified Code(s): A41.9 - Sepsis, unspecified organism Is this a current diagnosis for this admission?: YesPlan: Treat patient for his C. difficile colitis. Have also obtain blood and urine cultures as well. Patient does have a history of unusual previous bacterial infections including Acinetobacter. Initiate patient on gentle hydration. Maintain a map of 65. (2) Acute worsening of stage 4 chronic kidney disease Is this a current diagnosis for this admission?: YesPlan: Improved with gentle hydration. Likely secondary to diarrhea. (3) C. difficile colitis Is this a current diagnosis for this admission?: YesPlan: Patient on IV Flagyl and oral Vancocin. Day #2 of 14 (4) Chronic diastolic (congestive) heart failure Is this a current diagnosis for this admission?: YesPlan: Echo done on 07/02/2016 reveals grade 2 diastolic dysfunction,mild pulmonary hypertension, and minimal pericardial effusion. Judicious with fluid administration (5) Encephalopathy Is this a current diagnosis for this admission?: YesPlan: This is secondary to patient's sepsis and metabolic acidosis. (6) Cerebral atherosclerosis Is this a current diagnosis for this admission?: Yes (7) Chronic atrial fibrillation Is this a current diagnosis for this admission?: Yes (8) Hematuria Is this a current diagnosis for this admission?: Yes (9) Vascular dementia Qualifiers: Dementia behavioral disturbance: without behavioral disturbance Qualified Code(s): F01.50 - Vascular dementia without behavioral disturbance Is this a current diagnosis for this admission?: Yes (10) Vitamin B 12 deficiency Is this a current diagnosis for this admission?: Yes (11) Weakness Is this a current diagnosis for this admission?: Yes (12) Metabolic acidosis Is this a current diagnosis for this admission?: YesPlan: Likely secondary to renal failure, acute on chronic. Lactate is normal. Will place patient on bicarbonate drip of 43 mL an hour. Recheck BMP at 1800 - Time Time Spent with patient: 25-34 minutes Medications reviewed and adjusted accordingly: Yes Anticipated discharge: Acute Rehab
[2016-08-18] MEDS ORDERED: ACETAMINOPHEN 650 MG SUPP.RECT PR PRN (16:10)
[2016-08-18] MEDS ORDERED: ACETAMINOPHEN 325 MG TABLET PO ONE (16:10)
[2016-08-18 17:42] LABS: ANION GAP 12 (5-19); BLOOD UREA NITROGEN 51 mg/dL (7-20); CALCIUM 8.3 mg/dL (8.4-10.2); CARBON DIOXIDE 14 mmol/L (22-30); CHLORIDE 116 mmol/L (98-107); CREATININE RESULT 2.74 mg/dL (0.52-1.25); GLUCOSE 107 mg/dL (75-110); POTASSIUM 3.5 mmol/L (3.6-5.0); SODIUM 141.5 mmol/L (137-145)
[2016-08-18] MEDS ORDERED: NORMAL SALINE 1000 ML 1,000 ML IV PRN (19:19)
[2016-08-18] MEDS: TAMSULOSIN HCL 0.4 MG CAP.SR.24H PO SCH (21:33)
[2016-08-18] MEDS: ATORVASTATIN CALCIUM 10 MG TABLET PO SCH (21:34)
[2016-08-19 00:46] LABS: ANION GAP 10 (5-19); BLOOD UREA NITROGEN 49 mg/dL (7-20); CALCIUM 8.2 mg/dL (8.4-10.2); CARBON DIOXIDE 16 mmol/L (22-30); CHLORIDE 115 mmol/L (98-107); CREATININE RESULT 2.73 mg/dL (0.52-1.25); GLUCOSE 104 mg/dL (75-110); POTASSIUM 3.3 mmol/L (3.6-5.0); SODIUM 141.1 mmol/L (137-145)
[2016-08-19] MEDS: METRONIDAZOLE 500 MG/NS RTU 100 ML IV SCH ×4 (05:18→23:32)
[2016-08-19] MEDS: VANCOMYCIN HCL INJ 500 MG VIAL PO SCH ×4 (05:21→23:32)
[2016-08-19] MEDS: HEPARIN SOD (PORCINE) 5,000 UNIT/ML 1 ML SYRINGE SUBCUT SCH ×3 (05:22→21:13)
[2016-08-19 06:38] LABS: ANION GAP 10 (5-19); BLOOD UREA NITROGEN 47 mg/dL (7-20); CALCIUM 7.8 mg/dL (8.4-10.2); CARBON DIOXIDE 15 mmol/L (22-30); CHLORIDE 116 mmol/L (98-107); CREATININE RESULT 2.53 mg/dL (0.52-1.25); GLUCOSE 92 mg/dL (75-110); POTASSIUM 3.1 mmol/L (3.6-5.0); SODIUM 141.2 mmol/L (137-145)
[2016-08-19 06:54] LABS: HEMATOCRIT 29.1 % (37.9-51.0); HEMOGLOBIN 9.5 g/dL (13.5-17.0); HGB HCT DIFFERENCE -0.6; MEAN CORPUSCULAR HEMOGLOBIN 29.1 pg (27.0-33.4); MEAN CORPUSCULAR HGB CONC 32.4 g/dL (32.0-36.0); MEAN CORPUSCULAR VOLUME 90 fl (80-97); RED BLOOD COUNT 3.24 10^6/uL (4.35-5.55); RED CELL DISTRIBUTION WIDTH 15.7 % (11.5-14.0)
[2016-08-19 07:10] LABS: BAND NEUTROPHILS % (MANUAL) 4 % (3-5); BASOPHILS % (MANUAL) 0 % (0-2); EOSINOPHILS % (MANUAL) 1 % (0-6); LYMPHOCYTES % (MANUAL) 5 % (13-45); TOTAL CELLS COUNTED 100
[2016-08-19 07:13] LABS: ANISOCYTOSIS SLIGHT; BURR CELLS SLIGHT; HYPOCHROMASIA SLIGHT; OVALOCYTES SLIGHT; PLATELET CLUMPS PRESENT; POIKILOCYTOSIS 1+; TEAR DROP CELLS SLIGHT
[2016-08-19 07:18] LABS: WHITE BLOOD COUNT 33.3 10^3/uL (4.0-10.5)
[2016-08-19] MEDS ORDERED: BUMETANIDE INJ/PF 1 MG/4 ML SDV IV ONE (07:25)
[2016-08-19] MEDS ORDERED: POTASSIUM CHLORIDE 20 MEQ/15 ML UDCUP PO ONE (07:26)
[2016-08-19] MEDS ORDERED: PIPERACILLIN SODIUM/TAZOBACTAM 2.25 GM in NORMAL SALINE 50 ML IV SCH (07:30)
[2016-08-19] MEDS ORDERED: PHARMACY COMMUNICATION ORDER MC NR (07:30)
[2016-08-19] MEDS: POTASSI CL 20 MEQ/50 ML RIDER 50 ML IV SCH ×2 (08:04→09:16)
[2016-08-19] MEDS: FAMOTIDINE 20 MG TABLET PO SCH ×2 (09:16→21:12)
[2016-08-19] MEDS: ASPIRIN 81 MG TABLET, ENT COATED PO SCH (09:16)
[2016-08-19] MEDS: BACITRACIN ZINC OINTMENT 15 GM TOP SCH ×2 (09:17→17:12)
[2016-08-19] MEDS: CYANOCOBALAMIN (VITAMIN B-12) 1,000 MCG TABLET PO SCH (09:17)
[2016-08-19] MEDS: CARVEDILOL 6.25 MG TABLET PO SCH ×2 (09:17→21:12)
[2016-08-19] MEDS: NORMAL SALINE 1000 ML 1,000 ML IV PRN ×2 (11:11→23:45)
[2016-08-19] MEDS: PIPERACILLIN SODIUM/TAZOBACTAM 2.25 GM in NORMAL SALINE 50 ML IV SCH ×3 (12:15→23:32)
[2016-08-19] MEDS: DEXTROSE 5%-WATER 1000 ML 1,000 ML with SODIUM BICARBONATE 150 MEQ IV PRN ×2 (14:14)
[2016-08-19 15:50] LABS: ANION GAP 9 (5-19); BLOOD UREA NITROGEN 45 mg/dL (7-20); CALCIUM 7.9 mg/dL (8.4-10.2); CARBON DIOXIDE 15 mmol/L (22-30); CHLORIDE 115 mmol/L (98-107); CREATININE RESULT 2.34 mg/dL (0.52-1.25); GLUCOSE 93 mg/dL (75-110); SODIUM 139.1 mmol/L (137-145)
[2016-08-19 15:56] LABS: POTASSIUM 4.3 mmol/L (3.6-5.0)
--- NOTE | 2016-08-19 17:21 | PDOC PROGRESS REPORT ---
Subjective Progress Note for:: 08/19/16 Subjective:: Patient seen earlier on morning rounds. Patient doing much better today. Nursing reports 5 total stools yesterday and 2 so far today. Patient denies chest pain, shortness of breath, abdominal pain, nausea, vomiting , fevers, chills, constipation, headache, new onset weakness. Physical Exam Vital Signs: Temp Pulse Resp BP Pulse Ox 99.7 F 68 20 103/58 L 98 08/18/16 23:40 08/19/16 06:41 08/18/16 23:40 08/18/16 23:40 08/18/16 23:40 Intake & Output 08/18/16 08/19/16 08/20/16 06:59 06:59 06:59 Intake Total 1463 4272 Balance 1463 4272 Weight 75.6 kg 81.4 kg Exam: General: Awake, alert, and oriented 3, no acute respiratory distress HEENT: AT/NC, PERRL, EOMI, oropharynx is moist, pink, no scleral icterus, no conjunctival injection Neck: + JVD, trachea midline Chest: Coarse bilaterally CV: Regular rate and rhythm, normal S1 and S2, no rub, or gallop Abdomen: Soft, nontender to palpation, nondistended, active bowel sounds; no rebound, rigidity, or guarding Extremities: No cyanosis, clubbing; +1 edema Neuro: Cranial nerves II through XII are grossly intact without focal deficit Psych: Normal mood and affect Results Laboratory Results: 08/19/16 05:57 08/19/16 05:57 08/18/16 08/18/16 08/18/16 04:45 12:35 16:55 WBC 34.0 H* RBC 3.22 L Hgb 9.5 L Hct 29.2 L MCV 91 MCH 29.5 MCHC 32.6 RDW 15.3 H Plt Count 155 Seg Neutrophils % Lymphocytes % Monocytes % Eosinophils % Basophils % Absolute Neutrophils Absolute Lymphocytes Absolute Monocytes Absolute Eosinophils Absolute Basophils Carbonic Acid 0.64 L HCO3/H2CO3 Ratio 21:1 ABG pH 7.43 ABG pCO2 21.4 L ABG pO2 74.4 L ABG HCO3 13.7 L ABG O2 Saturation 95.6 ABG Base Excess -9.0 FiO2 ROOM AIR Sodium 141.5 Potassium 3.5 L Chloride 116 H Carbon Dioxide 14 L Anion Gap 12 BUN 51 H Creatinine 2.74 H Est GFR ( Amer) 27 L Est GFR (Non-Af Amer) 22 L Glucose 107 Calcium 8.3 L 08/19/16 08/19/16 08/19/16 00:20 05:57 05:57 WBC 33.3 H* RBC 3.24 L Hgb 9.5 L Hct 29.1 L MCV 90 MCH 29.1 MCHC 32.4 RDW 15.7 H Plt Count 145 L Seg Neutrophils % Not Reportable Lymphocytes % Not Reportable Monocytes % Not Reportable Eosinophils % Not Reportable Basophils % Not Reportable Absolute Neutrophils Not Reportable Absolute Lymphocytes Not Reportable Absolute Monocytes Not Reportable Absolute Eosinophils Not Reportable Absolute Basophils Not Reportable Carbonic Acid HCO3/H2CO3 Ratio ABG pH ABG pCO2 ABG pO2 ABG HCO3 ABG O2 Saturation ABG Base Excess FiO2 Sodium 141.1 141.2 Potassium 3.3 L 3.1 L Chloride 115 H 116 H Carbon Dioxide 16 L 15 L Anion Gap 10 10 BUN 49 H 47 H Creatinine 2.73 H 2.53 H Est GFR ( Amer) 27 L 30 L Est GFR (Non-Af Amer) 22 L 24 L Glucose 104 92 Calcium 8.2 L 7.8 L 08/17/16 08/17/16 08/17/16 16:54 16:54 21:37 Creatine Kinase 23 L 24 L CK-MB (CK-2) 1.01 Troponin I 0.024 NT-Pro-B Natriuret Pep 08/17/16 08/18/16 08/18/16 21:37 04:45 04:45 Creatine Kinase < 20 L CK-MB (CK-2) 1.20 0.50 Troponin I 0.023 0.031 NT-Pro-B Natriuret Pep 08/19/16 00:20 Creatine Kinase CK-MB (CK-2) Troponin I NT-Pro-B Natriuret Pep 36539 H Impressions: Chest X-Ray 08/18/16 00:00 IMPRESSION: Retrocardiac opacity could represent atelectasis, infiltrate, edema , or aspiration. Correlate clinically. Cardiomegaly with mild central pulmonary vascular distention. Assessment & Plan - Diagnosis (1) Sepsis Qualifiers: Sepsis type: sepsis due to unspecified organism Qualified Code(s): A41.9 - Sepsis, unspecified organism Is this a current diagnosis for this admission?: YesPlan: Treat patient for his C. difficile colitis. At this time, also concerned with healthcare associated pneumonia. Patient on Zosyn for this pending repeat chest x-ray and improvement of symptomatology. Pending blood and urine cultures as well. Patient does have a history of unusual previous bacterial infections including Acinetobacter. Initiate patient on gentle hydration. Maintain a map of 65. (2) Acute worsening of stage 4 chronic kidney disease Is this a current diagnosis for this admission?: YesPlan: Improving. Patient's current metabolic acidosis is secondary to this. Continue bicarbonate drip. (3) C. difficile colitis Is this a current diagnosis for this admission?: YesPlan: Patient on IV Flagyl and oral Vancocin. Day #3 of 14 (4) Chronic diastolic (congestive) heart failure Is this a current diagnosis for this admission?: YesPlan: Acute on chronic, decompensated. Echo done on 07/02/2016 reveals grade 2 diastolic dysfunction,mild pulmonary hypertension, and minimal pericardial effusion. We'll give patient Bumex today. Feel his volume overloaded. (5) Encephalopathy Is this a current diagnosis for this admission?: YesPlan: Now improved. This is secondary to patient's sepsis, underlying dementia and metabolic acidosis. (6) Cerebral atherosclerosis Is this a current diagnosis for this admission?: Yes (7) Chronic atrial fibrillation Is this a current diagnosis for this admission?: Yes (8) Hematuria Is this a current diagnosis for this admission?: Yes (9) Vascular dementia Qualifiers: Dementia behavioral disturbance: without behavioral disturbance Qualified Code(s): F01.50 - Vascular dementia without behavioral disturbance Is this a current diagnosis for this admission?: Yes (10) Vitamin B 12 deficiency Is this a current diagnosis for this admission?: Yes (11) Weakness Is this a current diagnosis for this admission?: Yes (12) Metabolic acidosis Is this a current diagnosis for this admission?: YesPlan: Likely secondary to renal failure, acute on chronic. Lactate is normal. Will place patient on bicarbonate drip of 43 mL an hour. Continue bicarbonate drip. Patient is gradually improving. - Time Time Spent with patient: 35 or more minutes Medications reviewed and adjusted accordingly: Yes Anticipated discharge: Acute Rehab
[2016-08-19] MEDS: ATORVASTATIN CALCIUM 10 MG TABLET PO SCH (21:12)
[2016-08-19] MEDS: TAMSULOSIN HCL 0.4 MG CAP.SR.24H PO SCH (21:12)
[2016-08-19] MEDS: HYDROCODONE/ACETAMINOPHEN 5-325 MG TABLET PO PRN (23:36)
[2016-08-20] MEDS: METRONIDAZOLE 500 MG/NS RTU 100 ML IV SCH ×4 (05:16→23:05)
[2016-08-20] MEDS: PIPERACILLIN SODIUM/TAZOBACTAM 2.25 GM in NORMAL SALINE 50 ML IV SCH ×4 (05:18→23:06)
[2016-08-20] MEDS: HEPARIN SOD (PORCINE) 5,000 UNIT/ML 1 ML SYRINGE SUBCUT SCH ×3 (05:20→22:54)
[2016-08-20] MEDS: VANCOMYCIN HCL INJ 500 MG VIAL PO SCH ×4 (05:21→23:06)
[2016-08-20 06:43] LABS: ABSOLUTE BASOPHILS # (AUTO) 0.1 10^3/uL (0.0-0.2); ABSOLUTE LYMPHOCYTES (AUTO) 1.6 10^3/uL (0.5-4.7); ABSOLUTE MONOCYTES (AUTO) 0.8 10^3/uL (0.1-1.4); ABSOLUTE NEUT (AUTO) 15.1 10^3/uL (1.7-8.2); BASOPHILS % (AUTO) 0.3 % (0-2); EOSINOPHILS % (AUTO) 5.2 % (0-6); LYMPHOCYTES % (AUTO) 8.8 % (13-45); MEAN CORPUSCULAR HEMOGLOBIN 29.1 pg (27.0-33.4); MEAN CORPUSCULAR HGB CONC 32.3 g/dL (32.0-36.0); MEAN CORPUSCULAR VOLUME 90 fl (80-97); MONOCYTES % (AUTO) 4.5 % (3-13); RED BLOOD COUNT 3.44 10^6/uL (4.35-5.55); RED CELL DISTRIBUTION WIDTH 15.7 % (11.5-14.0); SEGMENTED NEUTROPHILS % (AUTO) 81.2 % (42-78); WHITE BLOOD COUNT 18.6 10^3/uL (4.0-10.5)
[2016-08-20 07:07] LABS: ANION GAP 9 (5-19); BLOOD UREA NITROGEN 41 mg/dL (7-20); CALCIUM 7.9 mg/dL (8.4-10.2); CARBON DIOXIDE 16 mmol/L (22-30); CHLORIDE 115 mmol/L (98-107); CREATININE RESULT 2.28 mg/dL (0.52-1.25); GLUCOSE 94 mg/dL (75-110); MAGNESIUM 1.9 mg/dL (1.6-2.3); POTASSIUM 3.7 mmol/L (3.6-5.0); SODIUM 139.7 mmol/L (137-145)
[2016-08-20] MEDS ORDERED: NORMAL SALINE 1000 ML 1,000 ML IV PRN (07:43)
[2016-08-20] MEDS ORDERED: POTASSIUM CHLORIDE 10 MEQ TABLET.SA PO ONE (08:30)
[2016-08-20] MEDS: BACITRACIN ZINC OINTMENT 15 GM TOP SCH ×2 (09:24→17:47)
[2016-08-20] MEDS: CARVEDILOL 6.25 MG TABLET PO SCH ×2 (09:28→22:58)
[2016-08-20] MEDS: CYANOCOBALAMIN (VITAMIN B-12) 1,000 MCG TABLET PO SCH (09:28)
[2016-08-20] MEDS: FAMOTIDINE 20 MG TABLET PO SCH ×2 (09:28→22:55)
[2016-08-20] MEDS: ASPIRIN 81 MG TABLET, ENT COATED PO SCH (09:28)
[2016-08-20] MEDS: CALCITRIOL 0.25 MCG CAPSULE PO SCH (09:30)
[2016-08-20] MEDS ORDERED: CALCITRIOL 0.25 MCG CAPSULE PO SCH (10:00)
[2016-08-20] MEDS: DEXTROSE 5%-WATER 1000 ML 1,000 ML with SODIUM BICARBONATE 150 MEQ IV PRN ×2 (17:56)
[2016-08-20 19:10] LABS: PATH REVIEW PATHOLOGIST REVIEWED
--- NOTE | 2016-08-20 22:16 | PDOC PROGRESS REPORT ---
Subjective Progress Note for:: 08/20/16 Subjective:: Patient seen earlier on morning rounds. He reports he's feeling very well. Patient sitting in chair after having worked with physical therapy today. Nursing reports 3 total stools overnight. Patient denies chest pain, shortness of breath, abdominal pain, nausea, vomiting , fevers, chills, diarrhea, constipation, headache, new onset weakness. Physical Exam Vital Signs: Temp Pulse Resp BP Pulse Ox 97.5 F 57 L 16 124/68 100 08/20/16 20:30 08/20/16 20:30 08/20/16 20:30 08/20/16 20:30 08/20/16 20:30 Intake & Output 08/19/16 08/20/16 08/21/16 06:59 06:59 06:59 Intake Total 4272 4622 2460 Balance 4272 4622 2460 Weight 81.4 kg 84.2 kg Exam: General: Awake, alert, and oriented 3, no acute respiratory distress HEENT: AT/NC, PERRL, EOMI, oropharynx is moist, pink, no scleral icterus, no conjunctival injection Neck: no JVD, trachea midline Chest: Clear to auscultation bilaterally CV: Regular rate and rhythm, normal S1 and S2, no rub, or gallop Abdomen: Soft, nontender to palpation, nondistended, active bowel sounds; no rebound, rigidity, or guarding Extremities: No cyanosis, clubbing; trace edema Neuro: Cranial nerves II through XII are grossly intact without focal deficit Psych: Normal mood and affect Results Laboratory Results: 08/20/16 06:29 08/20/16 06:29 08/20/16 08/20/16 06:29 06:29 WBC 18.6 H RBC 3.44 L Hgb 10.0 L Hct 31.0 L MCV 90 MCH 29.1 MCHC 32.3 RDW 15.7 H Plt Count 162 Seg Neutrophils % 81.2 H Lymphocytes % 8.8 L Monocytes % 4.5 Eosinophils % 5.2 Basophils % 0.3 Absolute Neutrophils 15.1 H Absolute Lymphocytes 1.6 Absolute Monocytes 0.8 Absolute Eosinophils 1.0 H Absolute Basophils 0.1 Sodium 139.7 Potassium 3.7 Chloride 115 H Carbon Dioxide 16 L Anion Gap 9 BUN 41 H Creatinine 2.28 H Est GFR ( Amer) 33 L Est GFR (Non-Af Amer) 28 L Glucose 94 Calcium 7.9 L Magnesium 1.9 08/17/16 08/17/16 08/17/16 16:54 16:54 21:37 Creatine Kinase 23 L 24 L CK-MB (CK-2) 1.01 Troponin I 0.024 NT-Pro-B Natriuret Pep 08/17/16 08/18/16 08/18/16 21:37 04:45 04:45 Creatine Kinase < 20 L CK-MB (CK-2) 1.20 0.50 Troponin I 0.023 0.031 NT-Pro-B Natriuret Pep 08/19/16 00:20 Creatine Kinase CK-MB (CK-2) Troponin I NT-Pro-B Natriuret Pep 20890 H Impressions: Chest X-Ray 08/18/16 00:00 IMPRESSION: Retrocardiac opacity could represent atelectasis, infiltrate, edema , or aspiration. Correlate clinically. Cardiomegaly with mild central pulmonary vascular distention. Assessment & Plan - Diagnosis (1) Sepsis Qualifiers: Sepsis type: sepsis due to unspecified organism Qualified Code(s): A41.9 - Sepsis, unspecified organism Is this a current diagnosis for this admission?: YesPlan: Treat patient for his C. difficile colitis. At this time, also concerned with healthcare associated pneumonia. Patient on Zosyn for this pending repeat chest x-ray and improvement of symptomatology. Pending blood and urine cultures as well. Patient does have a history of unusual previous bacterial infections including Acinetobacter. Patient on gentle hydration. Maintain a map of 65. (2) Acute worsening of stage 4 chronic kidney disease Is this a current diagnosis for this admission?: YesPlan: Improving. Patient's current metabolic acidosis is secondary to this. Stop bicarbonate drip. (3) C. difficile colitis Is this a current diagnosis for this admission?: YesPlan: Patient on IV Flagyl and oral Vancocin. Day #4 of 14 (4) Chronic diastolic (congestive) heart failure Is this a current diagnosis for this admission?: YesPlan: Currently compensated. Echo done on 07/02/2016 reveals grade 2 diastolic dysfunction,mild pulmonary hypertension, and minimal pericardial effusion. Patient normally on torsemide. Consider Bumex. On Coreg, Isordil, and no crow/arb secondary to renal failure. (5) Encephalopathy Is this a current diagnosis for this admission?: YesPlan: Now improved. This is secondary to patient's sepsis, underlying dementia and metabolic acidosis. (6) Cerebral atherosclerosis Is this a current diagnosis for this admission?: Yes (7) Chronic atrial fibrillation Is this a current diagnosis for this admission?: Yes (8) Hematuria Is this a current diagnosis for this admission?: Yes (9) Vascular dementia Qualifiers: Dementia behavioral disturbance: without behavioral disturbance Qualified Code(s): F01.50 - Vascular dementia without behavioral disturbance Is this a current diagnosis for this admission?: Yes (10) Vitamin B 12 deficiency Is this a current diagnosis for this admission?: Yes (11) Weakness Is this a current diagnosis for this admission?: Yes (12) Metabolic acidosis Is this a current diagnosis for this admission?: YesPlan: Likely secondary to renal failure, acute on chronic. Lactate is normal. Stop bicarbonate drip. Patient is gradually improving. - Time Time Spent with patient: 25-34 minutes Medications reviewed and adjusted accordingly: Yes Anticipated discharge: Acute Rehab
[2016-08-20] MEDS: ATORVASTATIN CALCIUM 10 MG TABLET PO SCH (22:55)
[2016-08-20] MEDS: TAMSULOSIN HCL 0.4 MG CAP.SR.24H PO SCH (22:55)
[2016-08-20] MEDS: ZINC OXIDE 20% OINTMENT 28.35 GM TP PRN (23:02)
[2016-08-21] MEDS: METRONIDAZOLE 500 MG/NS RTU 100 ML IV SCH ×3 (05:29→17:03)
[2016-08-21] MEDS: PIPERACILLIN SODIUM/TAZOBACTAM 2.25 GM in NORMAL SALINE 50 ML IV SCH (05:29)
[2016-08-21] MEDS: VANCOMYCIN HCL INJ 500 MG VIAL PO SCH ×3 (05:30→17:04)
[2016-08-21] MEDS: HEPARIN SOD (PORCINE) 5,000 UNIT/ML 1 ML SYRINGE SUBCUT SCH ×3 (05:33→22:08)
[2016-08-21 06:45] LABS: HEMATOCRIT 30.9 % (37.9-51.0); HEMOGLOBIN 10.2 g/dL (13.5-17.0); HGB HCT DIFFERENCE -0.3; MEAN CORPUSCULAR HEMOGLOBIN 29.6 pg (27.0-33.4); MEAN CORPUSCULAR HGB CONC 32.9 g/dL (32.0-36.0); MEAN CORPUSCULAR VOLUME 90 fl (80-97); RED BLOOD COUNT 3.44 10^6/uL (4.35-5.55); WHITE BLOOD COUNT 12.4 10^3/uL (4.0-10.5)
[2016-08-21 07:06] LABS: ANION GAP 9 (5-19); BLOOD UREA NITROGEN 36 mg/dL (7-20); CALCIUM 7.7 mg/dL (8.4-10.2); CARBON DIOXIDE 16 mmol/L (22-30); CHLORIDE 114 mmol/L (98-107); CREATININE RESULT 2.04 mg/dL (0.52-1.25); GLUCOSE 79 mg/dL (75-110); MAGNESIUM 1.8 mg/dL (1.6-2.3); SODIUM 139.4 mmol/L (137-145)
[2016-08-21 07:16] LABS: BASOPHILS % (MANUAL) 0 % (0-2); EOSINOPHILS % (MANUAL) 3 % (0-6); LYMPHOCYTES % (MANUAL) 14 % (13-45); TOTAL CELLS COUNTED 100
[2016-08-21 07:17] LABS: ANISOCYTOSIS 1+; BURR CELLS 2+; OVALOCYTES 1+; POIKILOCYTOSIS 2+; SCHISTOCYTES 1+
[2016-08-21] MEDS: BACITRACIN ZINC OINTMENT 15 GM TOP SCH ×2 (10:04→17:01)
[2016-08-21] MEDS: CYANOCOBALAMIN (VITAMIN B-12) 1,000 MCG TABLET PO SCH (10:08)
[2016-08-21] MEDS: CARVEDILOL 6.25 MG TABLET PO SCH ×2 (10:09→22:08)
[2016-08-21] MEDS: FAMOTIDINE 20 MG TABLET PO SCH ×2 (10:10→22:08)
[2016-08-21] MEDS: ASPIRIN 81 MG TABLET, ENT COATED PO SCH (10:13)
--- NOTE | 2016-08-21 10:52 | PDOC PROGRESS REPORT ---
Subjective Progress Note for:: 08/21/16 Subjective:: Patient states that he is feeling fine. He denies abdominal pain. His loose stools are improving. He denies fevers or chills. He denies nausea, vomiting, chest pain, shortness of breath, cough. He states that he has been eating and drinking well. Physical Exam Vital Signs: Temp Pulse Resp BP Pulse Ox 97.8 F 60 20 138/63 H 100 08/21/16 07:45 08/21/16 10:00 08/21/16 07:45 08/21/16 07:45 08/21/16 07:45 Intake & Output 08/20/16 08/21/16 08/22/16 06:59 06:59 06:59 Intake Total 4622 3429 Balance 4622 3429 Weight 84.2 kg 86.5 kg GENERAL: No acute distress, hard of hearing HEENT: Conjunctiva clear, nonicteric, moist mucous membranes, no JVD, midline trachea RESPIRATORY: Clear to auscultation bilaterally, no wheezes, no rhonchi CARDIAC: Regular rate and rhythm, no murmurs/gallops/rubs ABDOMEN: Soft, nondistended, nontender, positive bowel sounds, no rebound, no guarding EXTREMETIES: No edema, cyanosis, clubbing NEUROLOGIC: Alert, oriented to person/place/time, CN's grossly intact, no focal deficits SKIN: No rash, wounds PSYCH: Normal mood, normal affect Results Laboratory Results: 08/21/16 06:27 08/21/16 06:27 08/21/16 08/21/16 06:27 06:27 WBC 12.4 H RBC 3.44 L Hgb 10.2 L Hct 30.9 L MCV 90 MCH 29.6 MCHC 32.9 RDW 16.0 H Plt Count 158 Seg Neutrophils % Not Reportable Lymphocytes % Not Reportable Monocytes % Not Reportable Eosinophils % Not Reportable Basophils % Not Reportable Absolute Neutrophils Not Reportable Absolute Lymphocytes Not Reportable Absolute Monocytes Not Reportable Absolute Eosinophils Not Reportable Absolute Basophils Not Reportable Sodium 139.4 Potassium 4.0 Chloride 114 H Carbon Dioxide 16 L Anion Gap 9 BUN 36 H Creatinine 2.04 H Est GFR ( Amer) 38 L Est GFR (Non-Af Amer) 31 L Glucose 79 Calcium 7.7 L Magnesium 1.8 0308/17/16 08/17/16 16:54 16:54 21:37 Creatine Kinase 23 L 24 L CK-MB (CK-2) 1.01 Troponin I 0.024 NT-Pro-B Natriuret Pep 08/17/16 08/18/16 08/18/16 21:37 04:45 04:45 Creatine Kinase < 20 L CK-MB (CK-2) 1.20 0.50 Troponin I 0.023 0.031 NT-Pro-B Natriuret Pep 08/19/16 00:20 Creatine Kinase CK-MB (CK-2) Troponin I NT-Pro-B Natriuret Pep 00223 H Impressions: Chest X-Ray 08/21/16 06:00 IMPRESSION: Increasing bilateral pleural effusions with increasing bibasilar airspace disease atelectasis versus pneumonia Assessment & Plan - Diagnosis (1) Sepsis Qualifiers: Sepsis type: sepsis due to unspecified organism Qualified Code(s): A41.9 - Sepsis, unspecified organism Is this a current diagnosis for this admission?: YesPlan: Secondary to C. difficile colitis. White blood count improving. Afebrile. (2) C. difficile colitis Is this a current diagnosis for this admission?: YesPlan: Continue IV Flagyl and oral vancomycin day #5. (3) Acute worsening of stage 4 chronic kidney disease Is this a current diagnosis for this admission?: YesPlan: Kidney function is now around baseline. (4) Chronic diastolic (congestive) heart failure Is this a current diagnosis for this admission?: YesPlan: Clinically compensated. Continue Coreg. Continue to hold diuretics for now ( patient normally takes Demadex 10 mg daily). (5) Encephalopathy Is this a current diagnosis for this admission?: YesPlan: Patient is around baseline level of dementia now. He normally resides at [facility]. Continue supportive care. (6) Cerebral atherosclerosis Is this a current diagnosis for this admission?: Yes (7) Chronic atrial fibrillation Is this a current diagnosis for this admission?: Yes (8) Dementia Qualifiers: Dementia type: vascular dementia Dementia behavioral disturbance: without behavioral disturbance Qualified Code(s): F01.50 - Vascular dementia without behavioral disturbance Is this a current diagnosis for this admission?: YesPlan: Patient is alert and oriented to person and place. He normally resides at [facility]. (9) Vitamin B 12 deficiency Is this a current diagnosis for this admission?: Yes (10) Weakness Is this a current diagnosis for this admission?: Yes - Time Time Spent with patient: 35 or more minutes Anticipated discharge: Other - [facility]isted [facility]
[2016-08-21] MEDS: ZINC OXIDE 20% OINTMENT 28.35 GM TP PRN (17:02)
[2016-08-21] MEDS: TAMSULOSIN HCL 0.4 MG CAP.SR.24H PO SCH (22:08)
[2016-08-21] MEDS: ATORVASTATIN CALCIUM 10 MG TABLET PO SCH (22:08)
[2016-08-22] MEDS: METRONIDAZOLE 500 MG/NS RTU 100 ML IV SCH ×5 (00:03→23:37)
[2016-08-22] MEDS: VANCOMYCIN HCL INJ 500 MG VIAL PO SCH ×5 (00:05→23:36)
[2016-08-22] MEDS: HEPARIN SOD (PORCINE) 5,000 UNIT/ML 1 ML SYRINGE SUBCUT SCH ×3 (05:17→21:32)
[2016-08-22 06:47] LABS: ABSOLUTE BASOPHILS # (AUTO) 0.1 10^3/uL (0.0-0.2); ABSOLUTE EOSINOPHILS # (AUTO) 0.7 10^3/uL (0.0-0.6); ABSOLUTE LYMPHOCYTES (AUTO) 1.5 10^3/uL (0.5-4.7); ABSOLUTE MONOCYTES (AUTO) 0.7 10^3/uL (0.1-1.4); ABSOLUTE NEUT (AUTO) 9.7 10^3/uL (1.7-8.2); BASOPHILS % (AUTO) 0.5 % (0-2); EOSINOPHILS % (AUTO) 5.9 % (0-6); HEMATOCRIT 32.9 % (37.9-51.0); HEMOGLOBIN 10.8 g/dL (13.5-17.0); HGB HCT DIFFERENCE -0.5; LYMPHOCYTES % (AUTO) 11.7 % (13-45); MEAN CORPUSCULAR HEMOGLOBIN 29.5 pg (27.0-33.4); MEAN CORPUSCULAR HGB CONC 32.7 g/dL (32.0-36.0); MEAN CORPUSCULAR VOLUME 90 fl (80-97); MONOCYTES % (AUTO) 5.3 % (3-13); RED BLOOD COUNT 3.65 10^6/uL (4.35-5.55); RED CELL DISTRIBUTION WIDTH 15.9 % (11.5-14.0); SEGMENTED NEUTROPHILS % (AUTO) 76.6 % (42-78); WHITE BLOOD COUNT 12.7 10^3/uL (4.0-10.5)
[2016-08-22 07:11] LABS: ANION GAP 11 (5-19); BLOOD UREA NITROGEN 32 mg/dL (7-20); CALCIUM 8.2 mg/dL (8.4-10.2); CARBON DIOXIDE 16 mmol/L (22-30); CHLORIDE 115 mmol/L (98-107); CREATININE RESULT 1.99 mg/dL (0.52-1.25); GLUCOSE 81 mg/dL (75-110); POTASSIUM 4.1 mmol/L (3.6-5.0); SODIUM 141.6 mmol/L (137-145)
[2016-08-22] MEDS: ASPIRIN 81 MG TABLET, ENT COATED PO SCH (11:16)
[2016-08-22] MEDS: FERROUS SULFATE 325 MG TABLET PO SCH (11:16)
[2016-08-22] MEDS: FAMOTIDINE 20 MG TABLET PO SCH ×2 (11:16→21:32)
[2016-08-22] MEDS: CARVEDILOL 6.25 MG TABLET PO SCH ×2 (11:17→21:32)
[2016-08-22] MEDS: ALLOPURINOL 100 MG TABLET PO SCH (11:17)
[2016-08-22] MEDS: CALCITRIOL 0.25 MCG CAPSULE PO SCH (11:17)
[2016-08-22] MEDS: BACITRACIN ZINC OINTMENT 15 GM TOP SCH (11:18)
[2016-08-22] MEDS: CYANOCOBALAMIN (VITAMIN B-12) 1,000 MCG TABLET PO SCH (11:18)
--- NOTE | 2016-08-22 18:54 | PDOC PROGRESS REPORT ---
Subjective Progress Note for:: 08/22/16 Subjective:: Patient states that he is feeling fine. He denies abdominal pain. His loose stools are improving. He denies fevers or chills. He denies nausea, vomiting, chest pain, shortness of breath, cough. He states that he has been eating and drinking well. Physical Exam Vital Signs: Temp Pulse Resp BP Pulse Ox 97.5 F 58 L 18 147/74 H 100 08/22/16 16:02 08/22/16 16:02 08/22/16 16:02 08/22/16 16:02 08/22/16 16:02 Intake & Output 08/21/16 08/22/16 08/23/16 06:59 06:59 06:59 Intake Total 3429 2544 450 Balance 3429 2544 450 Weight 86.5 kg 84 kg GENERAL: No acute distress, hard of hearing, attempting to climb out of bed HEENT: Conjunctiva clear, nonicteric, moist mucous membranes, no JVD, midline trachea RESPIRATORY: Clear to auscultation bilaterally, no wheezes, no rhonchi CARDIAC: Regular rate and rhythm, no murmurs/gallops/rubs ABDOMEN: Soft, nondistended, nontender, positive bowel sounds, no rebound, no guarding EXTREMETIES: No edema, cyanosis, clubbing NEUROLOGIC: Alert, oriented to person only, CN's grossly intact, no focal deficits SKIN: No rash, wounds PSYCH: Normal mood, normal affect Results Laboratory Results: 08/22/16 06:31 08/22/16 06:31 08/22/16 08/22/16 06:31 06:31 WBC 12.7 H RBC 3.65 L Hgb 10.8 L Hct 32.9 L MCV 90 MCH 29.5 MCHC 32.7 RDW 15.9 H Plt Count 206 Seg Neutrophils % 76.6 Lymphocytes % 11.7 L Monocytes % 5.3 Eosinophils % 5.9 Basophils % 0.5 Absolute Neutrophils 9.7 H Absolute Lymphocytes 1.5 Absolute Monocytes 0.7 Absolute Eosinophils 0.7 H Absolute Basophils 0.1 Sodium 141.6 Potassium 4.1 Chloride 115 H Carbon Dioxide 16 L Anion Gap 11 BUN 32 H Creatinine 1.99 H Est GFR ( Amer) 39 L Est GFR (Non-Af Amer) 32 L Glucose 81 Calcium 8.2 L 08/17/16 08/17/16 08/17/16 16:54 16:54 21:37 Creatine Kinase 23 L 24 L CK-MB (CK-2) 1.01 Troponin I 0.024 NT-Pro-B Natriuret Pep 08/17/16 08/18/16 08/18/16 21:37 04:45 04:45 Creatine Kinase < 20 L CK-MB (CK-2) 1.20 0.50 Troponin I 0.023 0.031 NT-Pro-B Natriuret Pep 08/19/16 00:20 Creatine Kinase CK-MB (CK-2) Troponin I NT-Pro-B Natriuret Pep 15872 H Impressions: Chest X-Ray 08/21/16 06:00 IMPRESSION: Increasing bilateral pleural effusions with increasing bibasilar airspace disease atelectasis versus pneumonia Assessment & Plan - Diagnosis (1) Sepsis Qualifiers: Sepsis type: sepsis due to unspecified organism Qualified Code(s): A41.9 - Sepsis, unspecified organism Is this a current diagnosis for this admission?: YesPlan: Secondary to C. difficile colitis. White blood count improving. Afebrile. (2) C. difficile colitis Is this a current diagnosis for this admission?: YesPlan: Continue IV Flagyl and oral vancomycin day #5. (3) Acute worsening of stage 4 chronic kidney disease Is this a current diagnosis for this admission?: YesPlan: Kidney function is now around baseline. (4) Chronic diastolic (congestive) heart failure Is this a current diagnosis for this admission?: YesPlan: Clinically compensated. Continue Coreg. Continue to hold diuretics for now ( patient normally takes Demadex 10 mg daily). (5) Encephalopathy Is this a current diagnosis for this admission?: YesPlan: Patient is around baseline level of dementia now. He normally resides at [facility]. Continue supportive care. (6) Cerebral atherosclerosis Is this a current diagnosis for this admission?: Yes (7) Chronic atrial fibrillation Is this a current diagnosis for this admission?: Yes (8) Dementia Qualifiers: Dementia type: vascular dementia Dementia behavioral disturbance: without behavioral disturbance Qualified Code(s): F01.50 - Vascular dementia without behavioral disturbance Is this a current diagnosis for this admission?: YesPlan: Patient is alert and oriented to person and place. He normally resides at [facility]. Start Risperdal 1 mg nightly. (9) Vitamin B 12 deficiency Is this a current diagnosis for this admission?: Yes (10) Weakness Is this a current diagnosis for this admission?: Yes - Time Time Spent with patient: 25-34 minutes Anticipated discharge: Other - Assisted living Within: within 24 hours
[2016-08-22] MEDS: ATORVASTATIN CALCIUM 10 MG TABLET PO SCH (21:32)
[2016-08-22] MEDS: TAMSULOSIN HCL 0.4 MG CAP.SR.24H PO SCH (21:32)
[2016-08-23 06:08] LABS: HEMATOCRIT 33.7 % (37.9-51.0); HGB HCT DIFFERENCE -0.7; MEAN CORPUSCULAR HEMOGLOBIN 29.3 pg (27.0-33.4); MEAN CORPUSCULAR HGB CONC 32.6 g/dL (32.0-36.0); MEAN CORPUSCULAR VOLUME 90 fl (80-97); RED BLOOD COUNT 3.74 10^6/uL (4.35-5.55); WHITE BLOOD COUNT 15.3 10^3/uL (4.0-10.5)
[2016-08-23 06:14] LABS: ANION GAP 12 (5-19); BLOOD UREA NITROGEN 27 mg/dL (7-20); CALCIUM 8.3 mg/dL (8.4-10.2); CARBON DIOXIDE 16 mmol/L (22-30); CHLORIDE 115 mmol/L (98-107); CREATININE RESULT 1.79 mg/dL (0.52-1.25); GLUCOSE 80 mg/dL (75-110); POTASSIUM 4.7 mmol/L (3.6-5.0); SODIUM 142.6 mmol/L (137-145)
[2016-08-23] MEDS: METRONIDAZOLE 500 MG/NS RTU 100 ML IV SCH ×4 (06:16→23:07)
[2016-08-23] MEDS: VANCOMYCIN HCL INJ 500 MG VIAL PO SCH ×4 (06:17→23:07)
[2016-08-23] MEDS: HEPARIN SOD (PORCINE) 5,000 UNIT/ML 1 ML SYRINGE SUBCUT SCH ×3 (06:17→22:09)
[2016-08-23 06:43] LABS: BASOPHILS % (MANUAL) 0 % (0-2); EOSINOPHILS % (MANUAL) 2 % (0-6); LYMPHOCYTES % (MANUAL) 12 % (13-45); TOTAL CELLS COUNTED 100
[2016-08-23 06:45] LABS: ANISOCYTOSIS 1+; BURR CELLS SLIGHT; OVALOCYTES SLIGHT; POIKILOCYTOSIS SLIGHT; TOXIC GRANULATION 1+
[2016-08-23] MEDS ORDERED: LORAZEPAM INJ 2 MG/1 ML VIAL IV PRN (11:02)
[2016-08-23] MEDS ORDERED: LORAZEPAM INJ 2 MG/1 ML VIAL ONE (11:04)
[2016-08-23] MEDS: FERROUS SULFATE 325 MG TABLET PO SCH (11:19)
[2016-08-23] MEDS: FAMOTIDINE 20 MG TABLET PO SCH ×2 (11:19→22:09)
[2016-08-23] MEDS: ASPIRIN 81 MG TABLET, ENT COATED PO SCH (11:19)
[2016-08-23] MEDS: CYANOCOBALAMIN (VITAMIN B-12) 1,000 MCG TABLET PO SCH (11:19)
[2016-08-23] MEDS: BACITRACIN ZINC OINTMENT 15 GM TOP SCH ×2 (11:19→18:46)
[2016-08-23] MEDS: ALLOPURINOL 100 MG TABLET PO SCH (11:19)
[2016-08-23] MEDS: CARVEDILOL 6.25 MG TABLET PO SCH ×2 (11:19→22:09)
[2016-08-23] MEDS: DOXYCYCLINE HYCLATE 100 MG TABLET PO SCH ×2 (13:19→22:09)
--- NOTE | 2016-08-23 14:39 | PDOC PROGRESS REPORT ---
Subjective Progress Note for:: 08/23/16 Subjective:: Patient has been very agitated overnight. He seems to have had a paradoxical effect with addition of Risperdal for agitation last night. He denies nausea, vomiting, chest pain, shortness of breath, cough. He states that he has been eating and drinking well. Physical Exam Vital Signs: Temp Pulse Resp BP Pulse Ox 97.7 F 64 18 155/86 H 98 08/23/16 07:24 08/23/16 07:24 08/23/16 07:24 08/23/16 07:24 08/23/16 07:24 Intake & Output 08/22/16 08/23/16 08/24/16 06:59 06:59 06:59 Intake Total 2544 1050 0 Balance 2544 1050 0 Weight 84 kg 82.6 kg GENERAL: No acute distress, hard of hearing, agitated and yelling constantly HEENT: Conjunctiva clear, nonicteric, moist mucous membranes, no JVD, midline trachea RESPIRATORY: Clear to auscultation bilaterally, no wheezes, no rhonchi CARDIAC: Regular rate and rhythm, no murmurs/gallops/rubs ABDOMEN: Soft, nondistended, nontender, positive bowel sounds, no rebound, no guarding EXTREMETIES: No edema, cyanosis, clubbing NEUROLOGIC: Alert, disoriented, CN's grossly intact, no focal deficits SKIN: No rash, wounds PSYCH: Normal mood, normal affect Results Laboratory Results: 08/23/16 05:37 08/23/16 05:37 08/23/16 08/23/16 05:37 05:37 WBC 15.3 H RBC 3.74 L Hgb 11.0 L Hct 33.7 L MCV 90 MCH 29.3 MCHC 32.6 RDW 16.0 H Plt Count 213 Seg Neutrophils % Not Reportable Lymphocytes % Not Reportable Monocytes % Not Reportable Eosinophils % Not Reportable Basophils % Not Reportable Absolute Neutrophils Not Reportable Absolute Lymphocytes Not Reportable Absolute Monocytes Not Reportable Absolute Eosinophils Not Reportable Absolute Basophils Not Reportable Sodium 142.6 Potassium 4.7 Chloride 115 H Carbon Dioxide 16 L Anion Gap 12 BUN 27 H Creatinine 1.79 H Est GFR ( Amer) 44 L Est GFR (Non-Af Amer) 36 L Glucose 80 Calcium 8.3 L 08/17/16 08/17/1617 16:54 16:54 21:37 Creatine Kinase 23 L 24 L CK-MB (CK-2) 1.01 Troponin I 0.024 NT-Pro-B Natriuret Pep 08/17/16 08/18/16 08/18/16 21:37 04:45 04:45 Creatine Kinase < 20 L CK-MB (CK-2) 1.20 0.50 Troponin I 0.023 0.031 NT-Pro-B Natriuret Pep 08/19/16 00:20 Creatine Kinase CK-MB (CK-2) Troponin I NT-Pro-B Natriuret Pep [id number] H Impressions: Chest X-Ray 08/21/16 06:00 IMPRESSION: Increasing bilateral pleural effusions with increasing bibasilar airspace disease atelectasis versus pneumonia Assessment & Plan - Diagnosis (1) Sepsis Qualifiers: Sepsis type: sepsis due to unspecified organism Qualified Code(s): A41.9 - Sepsis, unspecified organism Is this a current diagnosis for this admission?: YesPlan: Secondary to C. difficile colitis and bibasilar pneumonia. White blood count is slightly increased today. Afebrile. (2) C. difficile colitis Is this a current diagnosis for this admission?: YesPlan: Continue IV Flagyl and oral vancomycin day #6 (to complete on 08/31/2016). (3) Pneumonia Is this a current diagnosis for this admission?: YesPlan: Start patient on oral doxycycline. (4) Acute worsening of stage 4 chronic kidney disease Is this a current diagnosis for this admission?: YesPlan: Kidney function continues to improve daily. (5) Chronic diastolic (congestive) heart failure Is this a current diagnosis for this admission?: YesPlan: Clinically compensated. Continue Coreg. Continue to hold diuretics for now ( patient normally takes Demadex 10 mg daily). (6) Encephalopathy Is this a current diagnosis for this admission?: YesPlan: Patient has worsening of chronic dementia likely secondary to multiple acute medical problems. He normally resides at [facility]. Continue supportive care. Discontinue Risperdal as this seems to have had a paradoxical effect causing increased agitation. Try when necessary Ativan. (7) Cerebral atherosclerosis Is this a current diagnosis for this admission?: Yes (8) Chronic atrial fibrillation Is this a current diagnosis for this admission?: Yes (9) Dementia Qualifiers: Dementia type: vascular dementia Dementia behavioral disturbance: without behavioral disturbance Qualified Code(s): F01.50 - Vascular dementia without behavioral disturbance Is this a current diagnosis for this admission?: YesPlan: Patient is alert and oriented to person and place. He normally resides at [facility]. (10) Vitamin B 12 deficiency Is this a current diagnosis for this admission?: Yes (11) Weakness Is this a current diagnosis for this admission?: Yes - Time Time Spent with patient: 35 or more minutes Anticipated discharge: Other - [facility]
[2016-08-23] MEDS ORDERED: RISPERIDONE 1 MG TABLET PO SCH (18:00)
[2016-08-23] MEDS: NYSTATIN TOPICAL POWDER 15 GM TP SCH (18:47)
[2016-08-23] MEDS: NYSTATIN CREAM 15 GM TP SCH (18:48)
[2016-08-23] MEDS: ATORVASTATIN CALCIUM 10 MG TABLET PO SCH (22:09)
[2016-08-23] MEDS: TAMSULOSIN HCL 0.4 MG CAP.SR.24H PO SCH (22:14)
[2016-08-24] MEDS: VANCOMYCIN HCL INJ 500 MG VIAL PO SCH ×4 (05:44→23:02)
[2016-08-24] MEDS: HEPARIN SOD (PORCINE) 5,000 UNIT/ML 1 ML SYRINGE SUBCUT SCH ×3 (05:44→23:02)
[2016-08-24] MEDS: METRONIDAZOLE 500 MG/NS RTU 100 ML IV SCH ×2 (05:44→13:30)
[2016-08-24 07:12] LABS: HEMATOCRIT 33.5 % (37.9-51.0); HEMOGLOBIN 10.9 g/dL (13.5-17.0); HGB HCT DIFFERENCE -0.8; MEAN CORPUSCULAR HEMOGLOBIN 29.5 pg (27.0-33.4); MEAN CORPUSCULAR HGB CONC 32.5 g/dL (32.0-36.0); MEAN CORPUSCULAR VOLUME 91 fl (80-97); RED BLOOD COUNT 3.69 10^6/uL (4.35-5.55); RED CELL DISTRIBUTION WIDTH 16.6 % (11.5-14.0); WHITE BLOOD COUNT 14.7 10^3/uL (4.0-10.5)
[2016-08-24 07:20] LABS: ANION GAP 12 (5-19); BLOOD UREA NITROGEN 23 mg/dL (7-20); CALCIUM 8.4 mg/dL (8.4-10.2); CARBON DIOXIDE 15 mmol/L (22-30); CHLORIDE 117 mmol/L (98-107); GLUCOSE 69 mg/dL (75-110); POTASSIUM 4.1 mmol/L (3.6-5.0); SODIUM 143.7 mmol/L (137-145)
[2016-08-24 07:36] LABS: BAND NEUTROPHILS % (MANUAL) 1 % (3-5); BASOPHILS % (MANUAL) 0 % (0-2); EOSINOPHILS % (MANUAL) 1 % (0-6); LYMPHOCYTES % (MANUAL) 11 % (13-45); TOTAL CELLS COUNTED 100
[2016-08-24 07:39] LABS: ANISOCYTOSIS 1+; BURR CELLS SLIGHT; OVALOCYTES SLIGHT; POIKILOCYTOSIS 1+; TEAR DROP CELLS SLIGHT; TOXIC GRANULATION SLIGHT
[2016-08-24] MEDS: ASPIRIN 81 MG TABLET, ENT COATED PO SCH (13:27)
[2016-08-24] MEDS: CYANOCOBALAMIN (VITAMIN B-12) 1,000 MCG TABLET PO SCH (13:28)
[2016-08-24] MEDS: DOXYCYCLINE HYCLATE 100 MG TABLET PO SCH ×2 (13:28→23:02)
[2016-08-24] MEDS: FAMOTIDINE 20 MG TABLET PO SCH ×2 (13:28→23:01)
[2016-08-24] MEDS: ALLOPURINOL 100 MG TABLET PO SCH (13:29)
[2016-08-24] MEDS: FERROUS SULFATE 325 MG TABLET PO SCH (13:29)
[2016-08-24] MEDS: CARVEDILOL 6.25 MG TABLET PO SCH ×2 (13:30→23:01)
[2016-08-24] MEDS: CALCITRIOL 0.25 MCG CAPSULE PO SCH (13:30)
[2016-08-24] MEDS: NYSTATIN TOPICAL POWDER 15 GM TP SCH ×2 (13:38→18:37)
[2016-08-24] MEDS: NYSTATIN CREAM 15 GM TP SCH ×2 (13:38→18:37)
[2016-08-24] MEDS: BACITRACIN ZINC OINTMENT 15 GM TOP SCH (13:38)
--- NOTE | 2016-08-24 16:54 | PDOC PROGRESS REPORT ---
Subjective Progress Note for:: 08/24/16 Subjective:: Nursing reports the patient's behavior has been much better with past 24 hours. He denies nausea, vomiting, chest pain, shortness of breath, cough. He states that he has been eating and drinking well. Physical Exam Vital Signs: Temp Pulse Resp BP Pulse Ox 97.6 F 71 19 162/80 H 100 08/24/16 12:03 08/24/16 14:00 08/24/16 12:03 08/24/16 12:03 08/24/16 12:03 Intake & Output 08/23/16 08/24/16 08/25/16 06:59 06:59 06:59 Intake Total 4934 018 9211 Balance 3538 334 2548 Weight 82.6 kg 82.4 kg GENERAL: No acute distress, hard of hearing, calm HEENT: Conjunctiva clear, nonicteric, moist mucous membranes, no JVD, midline trachea RESPIRATORY: Clear to auscultation bilaterally, no wheezes, no rhonchi CARDIAC: Regular rate and rhythm, no murmurs/gallops/rubs ABDOMEN: Soft, nondistended, nontender, positive bowel sounds, no rebound, no guarding EXTREMETIES: No edema, cyanosis, clubbing NEUROLOGIC: Alert, disoriented, CN's grossly intact, no focal deficits SKIN: No rash, wounds PSYCH: Normal mood, normal affect Results Laboratory Results: 08/24/16 06:29 08/24/16 06:29 08/24/16 08/24/16 06:29 06:29 WBC 14.7 H RBC 3.69 L Hgb 10.9 L Hct 33.5 L MCV 91 MCH 29.5 MCHC 32.5 RDW 16.6 H Plt Count 231 Seg Neutrophils % Not Reportable Lymphocytes % Not Reportable Monocytes % Not Reportable Eosinophils % Not Reportable Basophils % Not Reportable Absolute Neutrophils Not Reportable Absolute Lymphocytes Not Reportable Absolute Monocytes Not Reportable Absolute Eosinophils Not Reportable Absolute Basophils Not Reportable Sodium 143.7 Potassium 4.1 Chloride 117 H Carbon Dioxide 15 L Anion Gap 12 BUN 23 H Creatinine 1.70 H Est GFR ( Amer) 47 L Est GFR (Non-Af Amer) 39 L Glucose 69 L Calcium 8.4 08/18/16 16:55 Blood Blood Culture - Final NO GROWTH IN 5 DAYS 08/18/16 16:25 Blood Blood Culture - Final NO GROWTH IN 5 DAYS 08/17/16 08/17/16 08/17/16 16:54 16:54 21:37 Creatine Kinase 23 L 24 L CK-MB (CK-2) 1.01 Troponin I 0.024 NT-Pro-B Natriuret Pep 08/17/16 08/18/16 08/18/16 21:37 04:45 04:45 Creatine Kinase < 20 L CK-MB (CK-2) 1.20 0.50 Troponin I 0.023 0.031 NT-Pro-B Natriuret Pep 08/19/16 00:20 Creatine Kinase CK-MB (CK-2) Troponin I NT-Pro-B Natriuret Pep [id number] H Impressions: Chest X-Ray 08/21/16 06:00 IMPRESSION: Increasing bilateral pleural effusions with increasing bibasilar airspace disease atelectasis versus pneumonia Assessment & Plan - Diagnosis (1) Sepsis Qualifiers: Sepsis type: sepsis due to unspecified organism Qualified Code(s): A41.9 - Sepsis, unspecified organism Is this a current diagnosis for this admission?: YesPlan: Secondary to C. difficile colitis and bibasilar pneumonia. White blood count is slightly improved. Afebrile. (2) C. difficile colitis Is this a current diagnosis for this admission?: YesPlan: Continue oral vancomycin until 08/30/2016). Discontinue IV Flagyl. (3) Pneumonia Is this a current diagnosis for this admission?: YesPlan: Continue oral doxycycline until 08/30/2016. (4) Acute worsening of stage 4 chronic kidney disease Is this a current diagnosis for this admission?: YesPlan: Kidney function continues to improve daily. (5) Chronic diastolic (congestive) heart failure Is this a current diagnosis for this admission?: YesPlan: Clinically compensated. Continue Coreg. Continue to hold diuretics for now ( patient normally takes Demadex 10 mg daily). (6) Encephalopathy Is this a current diagnosis for this admission?: YesPlan: Patient has worsening of chronic dementia likely secondary to multiple acute medical problems. He normally resides at [facility]. [facility] (7) Cerebral atherosclerosis Is this a current diagnosis for this admission?: Yes (8) Chronic atrial fibrillation Is this a current diagnosis for this admission?: Yes (9) Dementia Qualifiers: Dementia type: vascular dementia Dementia behavioral disturbance: without behavioral disturbance Qualified Code(s): F01.50 - Vascular dementia without behavioral disturbance Is this a current diagnosis for this admission?: YesPlan: Patient is alert and oriented to person and place. He normally resides at [facility]. (10) Vitamin B 12 deficiency Is this a current diagnosis for this admission?: Yes (11) Weakness Is this a current diagnosis for this admission?: Yes - Time Time Spent with patient: 25-34 minutes Anticipated discharge: Other - [facility] Within: within 24 hours
[2016-08-24] MEDS: ATORVASTATIN CALCIUM 10 MG TABLET PO SCH (23:01)
[2016-08-24] MEDS: TAMSULOSIN HCL 0.4 MG CAP.SR.24H PO SCH (23:02)
[2016-08-25 05:46] LABS: ANION GAP 8 (5-19); BLOOD UREA NITROGEN 21 mg/dL (7-20); CALCIUM 8.6 mg/dL (8.4-10.2); CARBON DIOXIDE 20 mmol/L (22-30); CHLORIDE 115 mmol/L (98-107); CREATININE RESULT 1.56 mg/dL (0.52-1.25); GLUCOSE 79 mg/dL (75-110); POTASSIUM 4.1 mmol/L (3.6-5.0); SODIUM 142.9 mmol/L (137-145)
[2016-08-25 06:03] LABS: HEMOGLOBIN 10.8 g/dL (13.5-17.0); HGB HCT DIFFERENCE -1.6; MEAN CORPUSCULAR HEMOGLOBIN 29.1 pg (27.0-33.4); MEAN CORPUSCULAR HGB CONC 31.9 g/dL (32.0-36.0); MEAN CORPUSCULAR VOLUME 91 fl (80-97); RED BLOOD COUNT 3.72 10^6/uL (4.35-5.55); RED CELL DISTRIBUTION WIDTH 16.3 % (11.5-14.0); WHITE BLOOD COUNT 12.1 10^3/uL (4.0-10.5)
[2016-08-25 06:19] LABS: BAND NEUTROPHILS % (MANUAL) 1 % (3-5); BASOPHILS % (MANUAL) 1 % (0-2); EOSINOPHILS % (MANUAL) 2 % (0-6); HYPOCHROMASIA SLIGHT; LYMPHOCYTES % (MANUAL) 11 % (13-45); POLYCHROMASIA SLIGHT; TOTAL CELLS COUNTED 100; TOXIC GRANULATION SLIGHT; TOXIC VACUOLATION PRESENT
[2016-08-25 06:20] LABS: ANISOCYTOSIS 1+; BURR CELLS SLIGHT; OVALOCYTES SLIGHT; POIKILOCYTOSIS SLIGHT; ROULEAUX SLIGHT; SCHISTOCYTES SLIGHT; TEAR DROP CELLS SLIGHT
[2016-08-25] MEDS: HEPARIN SOD (PORCINE) 5,000 UNIT/ML 1 ML SYRINGE SUBCUT SCH (06:47)
[2016-08-25] MEDS: VANCOMYCIN HCL INJ 500 MG VIAL PO SCH ×2 (06:47→11:49)
[2016-08-25 09:10] VITALS: BP 166/81
--- NOTE | 2016-08-25 10:53 | PDOC DISCHARGE SUMMARY ---
General - Admit/Disc Date/PCP Admission Date/Primary Care Provider: 08/17/16 15:27 LUI DUTTA MD Discharge Date: 08/25/16 - Discharge Diagnosis (1) Sepsis Is this a current diagnosis for this admission?: Yes (2) C. difficile colitis Is this a current diagnosis for this admission?: Yes (3) Pneumonia Is this a current diagnosis for this admission?: Yes (4) Acute worsening of stage 4 chronic kidney disease Is this a current diagnosis for this admission?: Yes (5) Chronic diastolic (congestive) heart failure Is this a current diagnosis for this admission?: Yes (6) Encephalopathy Is this a current diagnosis for this admission?: Yes (7) Cerebral atherosclerosis Is this a current diagnosis for this admission?: Yes (8) Chronic atrial fibrillation Is this a current diagnosis for this admission?: Yes (9) Dementia Is this a current diagnosis for this admission?: Yes (10) Vitamin B 12 deficiency Is this a current diagnosis for this admission?: Yes (11) Weakness Is this a current diagnosis for this admission?: Yes - Additional Information Resuscitation Status: Full Code Discharge Diet: Cardiac Discharge Activity: Activity As Tolerated Home Medications: Acetaminophen [Tylenol 325 mg Tablet] 650 mg PO Q4HP PRN 08/17/16 Allopurinol [Zyloprim 100 mg Tablet] 100 mg PO DAILY 08/17/16 Amlodipine Besylate [Norvasc 10 mg Tablet] 10 mg PO DAILY 08/17/16 Aspirin [Ecotrin 81 mg EC Tablet] 81 mg PO DAILY 08/17/16 Atorvastatin Calcium [Lipitor 10 mg Tablet] 10 mg PO QHS 08/17/16 Bacitracin 1 applic TOP BID 08/17/16 Bisacodyl [Dulcolax 10 mg Supp.rect] 10 mg SD DAILYP PRN 08/17/16 Calcitriol [Rocaltrol 0.25 mcg Capsule] 2 cap PO MOWEFR@1000 08/17/16 Carvedilol [Coreg 6.25 mg Tablet] 6.25 mg PO Q12 08/17/16 Cyanocobalamin (Vitamin B-12) [Vitamin B-12 1000 mcg Tablet] 1,000 mcg PO DAILY 08/17/16 Docusate Sodium [Colace 100 mg Capsule] 100 mg PO BID 08/17/16 Ferrous Sulfate [Feosol 325 mg Tablet] 325 mg PO DAILY 08/17/16 Isosorbide Dinitrate [Isordil Titradose 10 mg Tablet] 10 mg PO Q12 08/17/16 Nystatin [Mycostatin Topical Powder 15 gm] 1 applic TOP TID 08/17/16 Sennosides [Senna] 8.6 mg PO QHS 08/17/16 Tamsulosin HCl [Flomax 0.4 mg Cap.sr] 0.4 mg PO QHS 08/17/16 Torsemide [Demadex 20 mg Tablet] 10 mg PO DAILY 08/17/16 Doxycycline Hyclate [Vibramycin 100 mg Tablet] 100 mg PO Q12 #10 tablet Famotidine [Pepcid 20 mg Tablet] 20 mg PO Q12 #60 tablet 08/25/16 Hydrocodone/Acetaminophen [Hydrocodon-Acetaminophen 5-325] 1 each PO Q8H #10 tablet 08/25/16 Nystatin [Mycostatin Topical Powder 15 gm] 1 applic TP BID bottle 08/25/16 Vancomycin HCl 250 mg PO Q6H #40 capsule 08/25/16 History of Present Illness History of Present Illness: TERE QUEEN is a 85 year old male who presents to the emergency department with complaints of increasing white count. Patient was seen in the emergency department twice in the past several days and his primary care physician yesterday. Patient was noted to have a white count prior of 20-24-27k. Patient had complained of urinary symptoms. I did discuss this case yesterday with Dr. Duetsch but did not examine the patient. Dr. Deutsch reported patient's only complaint was of weakness and that he had a white count. He was unable to corroborate any additional symptomatology that would point to active infection. In fact he pointed out that patient's labs were remarkably improved to stable. At that time, given the only complaint is leukocytosis, I did request that he follow up with his primary care physician for evaluation. Today, I spoke patient and he reports that he's had diarrhea for the past several days. Patient is found to have C. difficile. Patient is admitted for sepsis with C. difficile colitis patient also has mildly worsening acute on chronic renal failure. Hospital Course Hospital Course: Patient was admitted for sepsis secondary to C. difficile colitis. White blood count on admission was 34.4 patient was initially treated with IV Flagyl and oral vancomycin. White blood count is now down to 12.1. Patient is no longer having loose stools. He will need to complete 10 more days of oral vancomycin. IV Flagyl will be discontinued. Patient was found to have bibasilar pneumonia. He has been started on oral doxycycline for this. He is afebrile and stable from a respiratory standpoint at time of discharge. O2 sat is 98% on room air at time of discharge. Patient has chronic advanced dementia at baseline. He had some delirium associated with his acute infections during hospitalization. His mental status is back to baseline. He will return to assisted living facility upon discharge and we will resume home health. From a nephrology standpoint patient had acute on chronic kidney injury. Creatinine on admission was 3.16. Creatinine at discharge is 1.56. With regard to patient's diastolic CHF, his diuretics were held on admission secondary to acute kidney injury and dehydration from GI losses. These are going to be restarted at time of discharge Physical Exam Vital Signs: Temp Pulse Resp BP Pulse Ox 98.3 F 62 16 166/81 H 98 08/25/16 08:03 08/25/16 08:03 08/25/16 08:03 08/25/16 08:03 08/25/16 08:03 Intake & Output 08/24/16 08/25/16 08/26/16 06:59 06:59 07:59 Intake Total 460 2720 Balance 460 2720 Weight 82.4 kg 83.1 kg GENERAL: No acute distress, hard of hearing, sitting up in bed eating breakfast HEENT: Conjunctiva clear, nonicteric, moist mucous membranes, no JVD, midline trachea RESPIRATORY: Clear to auscultation bilaterally, no wheezes, no rhonchi CARDIAC: Regular rate and rhythm, no murmurs/gallops/rubs ABDOMEN: Soft, nondistended, nontender, positive bowel sounds, no rebound, no guarding EXTREMETIES: No edema, cyanosis, clubbing NEUROLOGIC: Alert, oriented to person only, CN's grossly intact, no focal deficits SKIN: No rash, wounds PSYCH: Normal mood, normal affect Results Laboratory Results: 08/25/16 04:57 08/25/16 04:57 08/25/16 08/25/16 04:57 04:57 WBC 12.1 H RBC 3.72 L Hgb 10.8 L Hct 34.0 L MCV 91 MCH 29.1 MCHC 31.9 L RDW 16.3 H Plt Count 256 Seg Neutrophils % Not Reportable Lymphocytes % Not Reportable Monocytes % Not Reportable Eosinophils % Not Reportable Basophils % Not Reportable Absolute Neutrophils Not Reportable Absolute Lymphocytes Not Reportable Absolute Monocytes Not Reportable Absolute Eosinophils Not Reportable Absolute Basophils Not Reportable Sodium 142.9 Potassium 4.1 Chloride 115 H Carbon Dioxide 20 L Anion Gap 8 BUN 21 H Creatinine 1.56 H Est GFR ( Amer) 52 L Est GFR (Non-Af Amer) 43 L Glucose 79 Calcium 8.6 08/17/16 08/17/16 08/17/16 16:54 16:54 21:37 Creatine Kinase 23 L 24 L CK-MB (CK-2) 1.01 Troponin I 0.024 NT-Pro-B Natriuret Pep 08/17/16 08/18/16 08/18/16 21:37 04:45 04:45 Creatine Kinase < 20 L CK-MB (CK-2) 1.20 0.50 Troponin I 0.023 0.031 NT-Pro-B Natriuret Pep 08/19/16 00:20 Creatine Kinase CK-MB (CK-2) Troponin I NT-Pro-B Natriuret Pep 76793 H Labs- All tests 24 hr 08/25/16 08/25/16 04:57 04:57 WBC 12.1 H RBC 3.72 L Hgb 10.8 L Hct 34.0 L MCV 91 MCH 29.1 MCHC 31.9 L RDW 16.3 H Plt Count 256 Total Counted 100 Seg Neutrophils % Not Reportable Seg Neuts % (Manual) 75 Band Neutrophils % 1 L Lymphocytes % Not Reportable Lymphocytes % (Manual) 11 L Monocytes % Not Reportable Monocytes % (Manual) 8 Eosinophils % Not Reportable Eosinophils % (Manual) 2 Basophils % Not Reportable Basophils % (Manual) 1 Metamyelocytes % 2 H Absolute Neutrophils Not Reportable Abs Neuts (Manual) 9.4 H Absolute Lymphocytes Not Reportable Abs Lymphs (Manual) 1.3 Absolute Monocytes Not Reportable Abs Monocytes (Manual) 1.0 Absolute Eosinophils Not Reportable Absolute Eos (Manual) 0.2 Absolute Basophils Not Reportable Abs Basophils (Manual) 0.1 Toxic Granulation SLIGHT Toxic Vacuolation PRESENT Platelet Comment ADEQUATE Polychromasia SLIGHT Hypochromasia SLIGHT Poikilocytosis SLIGHT Anisocytosis 1+ Tear Drop Cells SLIGHT Ovalocytes SLIGHT Holland Cells SLIGHT Rouleaux SLIGHT Schistocytes SLIGHT Sodium 142.9 Potassium 4.1 Chloride 115 H Carbon Dioxide 20 L Anion Gap 8 BUN 21 H Creatinine 1.56 H Est GFR ( Amer) 52 L Est GFR (Non-Af Amer) 43 L Glucose 79 Calcium 8.6 Impressions: Chest X-Ray 08/21/16 06:00 IMPRESSION: Increasing bilateral pleural effusions with increasing bibasilar airspace disease atelectasis versus pneumonia Qualifiers [facility] BEING DISCHARGED WITH ANY OF THE FOLLOWING DIAGNOSIS?: No Plan Time Spent: Greater than 30 Minutes
[2016-08-25] MEDS: FAMOTIDINE 20 MG TABLET PO SCH (11:45)
[2016-08-25] MEDS: ASPIRIN 81 MG TABLET, ENT COATED PO SCH (11:45)
[2016-08-25] MEDS: ALLOPURINOL 100 MG TABLET PO SCH (11:46)
[2016-08-25] MEDS: FERROUS SULFATE 325 MG TABLET PO SCH (11:46)
[2016-08-25] MEDS: DOXYCYCLINE HYCLATE 100 MG TABLET PO SCH (11:46)
[2016-08-25] MEDS: CYANOCOBALAMIN (VITAMIN B-12) 1,000 MCG TABLET PO SCH (11:46)
[2016-08-25] MEDS: CARVEDILOL 6.25 MG TABLET PO SCH (11:47)
[2016-08-25] MEDS: NYSTATIN CREAM 15 GM TP SCH (11:54)
[2016-08-25] MEDS: NYSTATIN TOPICAL POWDER 15 GM TP SCH (11:54)
== END 2016-08-25 12:27 | disposition home health service (06) | DRG 871 ==
LOC: ER 12:59 → UNDOADMIN 15:14 → EH 15:14 → 3S 19:43
PROVIDERS: ADMIT Family Medicine; ATTEND Family Medicine
DX: A41.9 Sepsis, unspecified organism (principal); J18.9 Pneumonia, unspecified organism; G93.40 Encephalopathy, unspecified; A04.7 Enterocolitis due to Clostridium difficile; N18.4 Chronic kidney disease, stage 4 (severe); I50.32 Chronic diastolic (congestive) heart failure; N17.9 Acute kidney failure, unspecified; E86.0 Dehydration; I67.2 Cerebral atherosclerosis; I48.2 Chronic atrial fibrillation; F01.50 Vascular dementia, unspecified severity, without behavioral disturbance, psychotic disturbance, mood disturbance, and anxiety; E53.8 Deficiency of other specified B group vitamins; M19.90 Unspecified osteoarthritis, unspecified site; M10.9 Gout, unspecified; Z96.653 Presence of artificial knee joint, bilateral; Z79.82 Long term (current) use of aspirin; Z79.899 Other long term (current) drug therapy
CPT/HCPCS: 36415; 71010; 71020; 80048; 80053; 81001; 82550; 82553; 82803; 82962; 83605; 83735; 83880; 84484; 85025; 85610; 87040; 87086; 87493; 93005; 93010; 99285; J1644; J2060; J2543; J3370; J3480; J3490; J7030; J7060; P9047

== ENCOUNTER 2016-08-26 19:14 | Emergency (ER) | payer OTHER, MEDICARE ==
--- NOTE | 2016-08-26 19:36 | ER Document Report ---
ED GI/ - General Stated Complaint: GROIN PAIN Time seen by provider: 19:25 Notes: Patient is an 85-year-old male that comes from [facility] by EMS for chief complaint of a bloody penile discharge noted by staff this morning. Patient denies any groin pain, abdominal pain, patient has not had any reported fevers, vomiting. Patient states he feels good. Patient was discharged from this facility recently, he is currently under treatment for C. difficile with oral vancomycin, patient has a history of atrial fibrillation and is on aspirin but no other blood thinners, patient is also on doxycycline antibiotic because of recent pneumonia. Patient also has a history of BPH, dementia, anemia. TRAVEL OUTSIDE OF THE [place] IN LAST 30 DAYS: No - Related Data Allergies/Adverse Reactions: No Known Allergies Allergy (Unverified 08/26/16 19:48) Past Medical History - General Information source: Patient, Emergency Med Personnel - Social History Smoking Status: Never Smoker Frequency of alcohol use: None Drug Abuse: None Lives with: Care Home Family History: None - Past Medical History Cardiac Medical History: Reports: Hx Congestive Heart Failure, Hx Hypercholesterolemia, Hx Hypertension Pulmonary Medical History: Neurological Medical History: Denies: Hx Seizures Renal/ Medical History: Reports: Hx End Stage Renal Disease. Denies: Hx Peritoneal Dialysis Musculoskeltal Medical History: Reports Hx Arthritis, Reports Hx Gout Psychiatric Medical History: Reports: Hx Dementia Denies: Hx Depression Past Surgical History: Reports: Hx Orthopedic Surgery - knee replacement b/l. Denies: Hx Open Heart Surgery - Immunizations Hx Diphtheria, Pertussis, Tetanus Vaccination: Yes Review of Systems - Review of Systems Constitutional: No symptoms reported EENT: No symptoms reported Cardiovascular: No symptoms reported Respiratory: No symptoms reported Gastrointestinal: No symptoms reported Genitourinary: No symptoms reported Male Genitourinary: See HPI Musculoskeletal: No symptoms reported Skin: No symptoms reported Hematologic/Lymphatic: No symptoms reported Neurological/Psychological: No symptoms reported Physical Exam - Vital signs Vitals: Temp Pulse Resp BP Pulse Ox 97.7 F 65 13 132/66 H 100 08/26/16 19:26 08/26/16 19:26 08/26/16 19:26 08/26/16 19:26 08/26/16 19:26 Interpretation: Normal - General General appearance: Appears well, Alert In distress: None - HEENT Head: Normocephalic, Atraumatic Eyes: Normal Pupils: PERRL - Respiratory Respiratory status: No respiratory distress Chest status: Nontender Breath sounds: Normal Chest palpation: Normal - Cardiovascular Rhythm: Regular Heart sounds: Normal auscultation Murmur: No - Abdominal Inspection: Normal Distension: No distension Bowel sounds: Normal Tenderness: Nontender. No: Tender, Guarding, Rebound Organomegaly: No organomegaly - Genitourinary Inspection: Normal. No: Blood at meatus, Penile discharge Tenderness: Nontender Scrotum: Normal. No: Swelling, Redness, Hot to touch - Back Back: Normal, Nontender. No: Tender, CVA tenderness - Extremities General upper extremity: Normal inspection, Nontender, Normal color, Normal ROM , Normal temperature General lower extremity: Normal inspection, Nontender, Normal color, Normal ROM , Normal temperature, Normal weight bearing. No: Tierra's sign - Neurological Neuro grossly intact: Yes Cognition: Normal Orientation: AAOx4 [place] Coma Scale Eye Opening: Spontaneous Vera Coma Scale Verbal: Oriented [place] Coma Scale Motor: Obeys Commands [place] Coma Scale Total: 15 Speech: Normal Motor strength normal: LUE, RUE, LLE, RLE Sensory: Normal - Psychological Associated symptoms: Normal affect, Normal mood - Skin Skin Temperature: Warm Skin Moisture: Dry Skin Color: Normal Course - Re-evaluation Re-evalutation: Requested nurse to check patient's records as far as potential catheterization, patient was reportedly catheterized during his previous visit. Patient smiling, talkative, soft benign abdomen, unremarkable genital and groin exam with no tenderness or evidence of bloody discharge. No tachycardia, hypotension, or fever. Patient is not on a blood thinner. Urinalysis performed, shows a few white blood cells but no significant hematuria noted. Patient is already taking doxycycline and vancomycin antibiotics, this should be good coverage for any potential urinary tract infection. Because no evidence of hematuria or injury are noted patient will be discharged back to the long-term care facility to perform follow-up with his primary care, given return precautions. Patient states he is ready to leave, again evaluated with no complaints. - Vital Signs Vital signs: Temp Pulse Resp BP Pulse Ox 97.7 F 66 16 136/62 H 100 08/26/16 19:26 08/26/16 20:24 08/26/16 20:24 08/26/16 20:24 08/26/16 20:24 - Laboratory Laboratory results interpreted by me: 08/26/16 19:42 Ur Leukocyte Esterase SMALL H Discharge - Discharge Clinical Impression: Hematuria Condition: Stable Disposition: HOME, SELF-CARE Additional Instructions: No bloody discharge or abnormality is seen on examination. No abnormality is seen on laboratory evaluation. Unsure if bloody discharge was related to recent catheterization performed during recent hospitalization, this is nonspecific based on patient's current normal evaluation. Follow-up with primary care. Return to the emergency department for any concerning or worsening symptoms including fever, vomiting, complaints of pain, etc. Referrals: LUI DUTTA MD [Primary Care Provider] - Follow up as needed
[2016-08-26 19:57] LABS: APPEARANCE,URINE CLEAR; BILIRUBIN,URINE NEGATIVE (NEGATIVE); GLUCOSE, URINE NEGATIVE (NEGATIVE); KETONES,URINE NEGATIVE (NEGATIVE); LEUKOCYTE ESTERASE,URINE SMALL (NEGATIVE); NITRITE,URINE NEGATIVE (NEGATIVE); PROTEIN,URINE NEGATIVE (NEGATIVE); URINE SPECIFIC GRAVITY 1.008; UROBILINOGEN,URINE NEGATIVE mg/dL (<2.0)
[2016-08-26 20:29] VITALS: BP 136/62
== END 2016-08-26 20:33 | disposition home or self-care (01) ==
LOC: ER 19:14
DX: R31.9 Hematuria, unspecified (principal); J18.9 Pneumonia, unspecified organism; I48.91 Unspecified atrial fibrillation; Z79.82 Long term (current) use of aspirin; I12.0 Hypertensive chronic kidney disease with stage 5 chronic kidney disease or end stage renal disease; N18.6 End stage renal disease
CPT/HCPCS: 81001; 99284

== ENCOUNTER 2016-08-29 17:07 | Emergency (ER) | payer OTHER, MEDICARE ==
--- NOTE | 2016-08-29 17:27 | ER Document Report ---
ED GI Bleed / Rectal Pain - General Chief Complaint: Bloody Stools Stated Complaint: DARK STOOLS Notes: Patient is an 85-year-old male, past medical history EKG, A. fib, hypertension, CHF, C. difficile, presents from the senior care after nurse noticed an episode of dark stool earlier today. His last colonoscopy was 1.5 years ago. The patient is on oral vancomycin for C. difficile. He denies any symptoms at this time, including lightheadedness, abdominal pain, nausea, vomiting, rectal pain, fevers, chest pain, shortness of breath or urinary symptoms. TRAVEL OUTSIDE OF THE [place] IN LAST 30 DAYS: No - Related Data Allergies/Adverse Reactions: No Known Allergies Allergy (Unverified 08/26/16 19:48) Past Medical History - General Information source: Patient, Relative - Nephew - Social History Smoking Status: Unknown if Ever Smoked Family History: None - Past Medical History Cardiac Medical History: Reports: Hx Congestive Heart Failure, Hx Hypercholesterolemia, Hx Hypertension Pulmonary Medical History: Neurological Medical History: Denies: Hx Seizures Renal/ Medical History: Reports: Hx End Stage Renal Disease. Denies: Hx Peritoneal Dialysis Musculoskeltal Medical History: Reports Hx Arthritis, Reports Hx Gout Psychiatric Medical History: Reports: Hx Dementia Denies: Hx Depression Past Surgical History: Reports: Hx Orthopedic Surgery - knee replacement b/l. Denies: Hx Open Heart Surgery - Immunizations Hx Diphtheria, Pertussis, Tetanus Vaccination: Yes Review of Systems - Review of Systems Notes: REVIEW OF SYSTEMS: CONSTITUTIONAL: -fevers, -chills EENT: -eye pain, -difficulty swallowing, -nasal congestion CARDIOVASCULAR:-chest pain, -syncope. RESPIRATORY: -cough, -SOB GASTROINTESTINAL: +dark stool, -abdominal pain, -nausea, -vomiting, -diarrhea GENITOURINARY: -dysuria, -hematuria MUSCULOSKELETAL: -back pain, -neck pain SKIN: -rash or skin lesions. HEMATOLOGIC: -easy bruising or bleeding. LYMPHATIC: -swollen, enlarged glands. NEUROLOGICAL: -altered mental status or loss of consciousness, -headache, - neurologic symptoms PSYCHIATRIC: -anxiety, -depression. ALL OTHER SYSTEMS REVIEWED AND NEGATIVE. Physical Exam - Notes Notes: PHYSICAL EXAMINATION: GENERAL: Well-appearing, well-nourished and in no acute distress. HEAD: Atraumatic, normocephalic. EYES: Pupils equal round and reactive to light, extraocular movements intact, sclera anicteric, conjunctiva are normal. ENT: nares patent, oropharynx clear without exudates. Moist mucous membranes. NECK: Normal range of motion, supple without lymphadenopathy LUNGS: Breath sounds clear to auscultation bilaterally and equal. No wheezes rales or rhonchi. HEART: Regular rate and rhythm without murmurs ABDOMEN: Brown stool, no hemorrhoids. Soft, nontender, normoactive bowel sounds. No guarding, no rebound. No masses appreciated. EXTREMITIES: Normal range of motion, no pitting or edema. No cyanosis. NEUROLOGICAL: Cranial nerves grossly intact. Normal speech, normal gait. Normal sensory, motor, and reflex exams. PSYCH: Normal mood, normal affect. SKIN: Warm, Dry, normal turgor, no rashes or lesions noted. Course - Re-evaluation Re-evalutation: Patient has no complaints at this time. Stool is guaiac negative. Hemoglobin is in baseline range. Creatinine is also in baseline range. No lightheadedness and blood pressure is stable. Patient is on iron pills and this may have caused his dark stool. No emergent condition exists at this time. Will discharge back to [facility]. - Laboratory Result Diagrams: 08/29/16 17:48 08/29/16 17:48 Laboratory results interpreted by me: 08/29/16 08/29/16 17:48 17:48 WBC 12.3 H RBC 3.49 L Hgb 10.5 L Hct 32.0 L RDW 17.0 H Absolute Neutrophils 8.7 H Chloride 108 H Carbon Dioxide 20 L BUN 24 H Creatinine 2.19 H Est GFR ( Amer) 35 L Est GFR (Non-Af Amer) 29 L Creatine Kinase 42 L Total Protein 5.9 L Albumin 2.9 L Discharge - Discharge Clinical Impression: Dark stools Disposition: SNF Additional Instructions: Your stool did not show any evidence of blood today. Your hemoglobin is within your baseline. You most likely had dark stools from your iron pills. Follow-up with her primary care physician and GI doctor for further evaluation and treatment. Rectal Bleeding, Unclear Cause No definite cause has been found for the dark stools you have experienced. Among the possible causes are internal or external hemorrhoids (internal hemorrhoids can't be felt on the outside), an anal fissure (a crack at the anal ring), infections or inflammatory diseases of the colon, tumors or polyps, or diverticula (diverticula are outpouchings from the colon wall). To establish a cause for your bleeding (or at least make certain there is no serious problem such as a tumor), further evaluation will be necessary. This may include special X-rays, or passage of a scope up into the colon. Be sure to keep your follow-up appointment. Should you develop brisk bleeding, abdominal pain, fever, lightheadedness, or fever, call the doctor or return at once. Referrals: LUI DUTTA MD [Primary Care Provider] - Follow up as needed LISET SAHNI MD [ACTIVE STAFF] - Follow up as needed
[2016-08-29 18:08] LABS: ABSOLUTE BASOPHILS # (AUTO) 0.1 10^3/uL (0.0-0.2); ABSOLUTE EOSINOPHILS # (AUTO) 0.2 10^3/uL (0.0-0.6); ABSOLUTE LYMPHOCYTES (AUTO) 2.3 10^3/uL (0.5-4.7); ABSOLUTE NEUT (AUTO) 8.7 10^3/uL (1.7-8.2); BASOPHILS % (AUTO) 0.7 % (0-2); EOSINOPHILS % (AUTO) 1.7 % (0-6); HEMOGLOBIN 10.5 g/dL (13.5-17.0); HGB HCT DIFFERENCE -0.5; LYMPHOCYTES % (AUTO) 18.8 % (13-45); MEAN CORPUSCULAR HGB CONC 32.8 g/dL (32.0-36.0); MEAN CORPUSCULAR VOLUME 92 fl (80-97); MONOCYTES % (AUTO) 8.2 % (3-13); RED BLOOD COUNT 3.49 10^6/uL (4.35-5.55); SEGMENTED NEUTROPHILS % (AUTO) 70.6 % (42-78); WHITE BLOOD COUNT 12.3 10^3/uL (4.0-10.5)
[2016-08-29 18:12] LABS: PROTHROMBIN TIME 14.1 SEC (11.4-15.4)
[2016-08-29 18:13] LABS: PARTIAL THROMBOPLASTIN TIME 33.5 SEC (23.5-35.8)
[2016-08-29 18:28] LABS: ALANINE AMINOTRANSFERASE 25 U/L (21-72); ALBUMIN 2.9 g/dL (3.5-5.0); ALKALINE PHOSPHATASE 87 U/L (38-126); ANION GAP 11 (5-19); ASPARTATE AMINO TRANSFERASE 22 U/L (17-59); BILIRUBIN,TOTAL 0.5 mg/dL (0.2-1.3); BLOOD UREA NITROGEN 24 mg/dL (7-20); CALCIUM 8.6 mg/dL (8.4-10.2); CARBON DIOXIDE 20 mmol/L (22-30); CHLORIDE 108 mmol/L (98-107); CREATINE KINASE 42 U/L (55-170); CREATININE RESULT 2.19 mg/dL (0.52-1.25); GLUCOSE 87 mg/dL (75-110); LIPASE 53.1 U/L (23-300); POTASSIUM 4.7 mmol/L (3.6-5.0); SODIUM 138.7 mmol/L (137-145); TOTAL PROTEIN 5.9 g/dL (6.3-8.2)
[2016-08-29 19:24] VITALS: BP 150/87
--- NOTE | 2016-08-30 11:17 | EKG REPORT ---
SEVERITY:- ABNORMAL ECG - SINUS RHYTHM, CAN NOT R/O A FIB SEC TO BASELINE ARTIFACTS MULTIPLE ATRIAL PREMATURE COMPLEXES LEFT BUNDLE BRANCH BLOCK INFERIOR Q WAVES, POSSIBLY DUE TO LBBB : Confirmed by: Eleazar Bhatti 30-Aug-2016 11:16:55
== END 2016-08-29 19:29 ==
LOC: ER 17:07
DX: A04.7 Enterocolitis due to Clostridium difficile (principal); I12.0 Hypertensive chronic kidney disease with stage 5 chronic kidney disease or end stage renal disease; N18.6 End stage renal disease; Z79.899 Other long term (current) drug therapy
CPT/HCPCS: 36415; 80048; 80076; 82272; 82550; 83690; 84484; 85025; 85610; 85730; 93005; 93010; 99284

== ENCOUNTER 2016-09-14 12:30 | Emergency (ER) | payer OTHER, MEDICARE ==
--- NOTE | 2016-09-14 13:13 | ER Document Report ---
ED General - General Information source: Patient, Emergency Med Personnel, Outside Facility Records Cannot obtain history due to: Dementia TRAVEL OUTSIDE OF THE [place] IN LAST 30 DAYS: No - HPI Patient complains to provider of: Possible Bleed Onset: This morning Quality of pain: No pain Associated symptoms: None - General Chief Complaint: Other Stated Complaint: POSSIBLE BLEED Notes: Patient is an 85-year-old male sent over from [facility] after a nurse discovered blood droplets on his shirt. They were concerned that the patient may have been bleeding from somewhere. Patient also has dried blood under his right third and fourth fingernails as well as in the cuticles. Patient has no other complaints and denies any pain. (ION MILLER) - HPI Context: Blood droplets on shirt (ION MILLER) - Related Data Allergies/Adverse Reactions: No Known Allergies Allergy (Unverified 08/26/16 19:48) Past Medical History - General Information source: Patient, [facility] Records, Outside Facility Records Cannot obtain history due to: Dementia - Social History Smoking Status: Unknown if Ever Smoked Family History: None, Reviewed & Not Pertinent - Past Medical History Cardiac Medical History: Reports: Hx Congestive Heart Failure, Hx Hypercholesterolemia, Hx Hypertension Pulmonary Medical History: Neurological Medical History: Denies: Hx Seizures Renal/ Medical History: Reports: Hx End Stage Renal Disease. Denies: Hx Peritoneal Dialysis Musculoskeltal Medical History: Reports Hx Arthritis, Reports Hx Gout Psychiatric Medical History: Reports: Hx Dementia Denies: Hx Depression Past Surgical History: Reports: Hx Orthopedic Surgery - knee replacement b/l. Denies: Hx Open Heart Surgery - Immunizations Hx Diphtheria, Pertussis, Tetanus Vaccination: Yes Review of Systems - Review of Systems -: Yes ROS unobtainable due to patient's medical condition - Patient has history of dementia Constitutional: No symptoms reported EENT: No symptoms reported Cardiovascular: No symptoms reported Respiratory: No symptoms reported Gastrointestinal: No symptoms reported Genitourinary: No symptoms reported Male Genitourinary: No symptoms reported Musculoskeletal: No symptoms reported Skin: No symptoms reported Hematologic/Lymphatic: No symptoms reported Neurological/Psychological: No symptoms reported -: Yes All other systems reviewed and negative Physical Exam - General General appearance: Appears well, Alert In distress: None - HEENT Head: Normocephalic, Atraumatic Eyes: Normal Pupils: PERRL Nasal: Clear rhinorrhea - Right nostril Mouth/Lips: Other - Left upper lip may be source of blood. There is a small speck of dried blood there and also on his left cheek. - Respiratory Respiratory status: No respiratory distress Breath sounds: Normal - Cardiovascular Rhythm: Regular Heart sounds: Normal auscultation Murmur: No - Abdominal Inspection: Normal Distension: No distension Bowel sounds: Normal Tenderness: Nontender Organomegaly: No organomegaly - Back Back: Normal, Nontender - Extremities General upper extremity: Normal inspection, Nontender, Other - Small amount of dried blood under the third and fourth fingernails and cuticles of the right hand. General lower extremity: Normal inspection, Nontender - Neurological Neuro grossly intact: Yes Cognition: Confused - History of dementia Vera Coma Scale Eye Opening: Spontaneous Vera Coma Scale Verbal: Oriented [place] Coma Scale Motor: Obeys Commands [place] Coma Scale Total: 15 Speech: Normal - Psychological Associated symptoms: Normal affect, Normal mood - Skin Skin Temperature: Warm Skin Moisture: Dry Discharge - Discharge Clinical Impression: Bleeding, Bleeding source unknown Additional Instructions: There was no obvious source for the blood stains on the shoulder. There was some dried blood around the fingernails on the right hand. There were tiny specks of dried blood on the left cheek. Return if any active bleeding develops that cannot be controlled. Scribe Attestation: 09/14/16 13:17 I personally performed the services described in the documentation, reviewed and edited the documentation which was dictated to the scribe in my presence, and it accurately records my words and actions. (BREANNA HARRISON) Scribe Documentation - Scribe Written by Jacqueline:: Ion Miller 09/14/2016 1318 acting as scribe for :: Juancho
[2016-09-14 19:57] VITALS: BP 119/81
== END 2016-09-14 19:50 ==
LOC: ER 12:30
DX: R58 Hemorrhage, not elsewhere classified (principal); F03.90 Unspecified dementia, unspecified severity, without behavioral disturbance, psychotic disturbance, mood disturbance, and anxiety; I12.0 Hypertensive chronic kidney disease with stage 5 chronic kidney disease or end stage renal disease; N18.6 End stage renal disease
CPT/HCPCS: 99284

== ENCOUNTER 2017-09-28 12:30 | Emergency (ER) | payer MEDICARE ==
--- NOTE | 2017-09-28 13:10 | ER Document Report ---
ED Fall - General Chief Complaint: Fall Stated Complaint: FALL Time Seen by Provider: 09/28/17 12:54 Information source: Patient Notes: 86-year-old gentleman with past medical history of dementia who presented today from assisted living for evaluation of a mechanical fall according to patient he tripped and fell on a rug. Patient denies any head injury or loss of consciousness. Patient does not have any obvious evidence of trauma. Patient is well-appearing, patient is poor of hearing. Patient denies any complaints, no headache, no lower extremity pain, no pelvis pain, no abdominal pain, no back pain. Family are at bedside. TRAVEL OUTSIDE OF THE [place] IN LAST 30 DAYS: No - Related data Allergies/Adverse Reactions: No Known Allergies Allergy (Verified 09/28/17 12:33) Past Medical History - General Information source: Patient - Social History Smoking Status: Unknown if Ever Smoked Family History: None, Reviewed & Not Pertinent Patient has suicidal ideation: No Patient has homicidal ideation: No - Past Medical History Cardiac Medical History: Reports: Hx Congestive Heart Failure, Hx Hypercholesterolemia, Hx Hypertension Pulmonary Medical History: Neurological Medical History: Denies: Hx Seizures Renal/ Medical History: Reports: Hx End Stage Renal Disease. Denies: Hx Peritoneal Dialysis Musculoskeltal Medical History: Reports Hx Arthritis, Reports Hx Gout Psychiatric Medical History: Reports: Hx Dementia Denies: Hx Depression Past Surgical History: Reports: Hx Orthopedic Surgery - knee replacement b/l. Denies: Hx Open Heart Surgery - Immunizations Hx Diphtheria, Pertussis, Tetanus Vaccination: Yes Review of Systems - Review of Systems Notes: REVIEW OF SYSTEMS: CONSTITUTIONAL: -fevers, -chills EENT: -eye pain, -difficulty swallowing, -nasal congestion CARDIOVASCULAR: -chest pain, -syncope. RESPIRATORY: -cough, -SOB GASTROINTESTINAL: -abdominal pain, -nausea, -vomiting, -diarrhea GENITOURINARY: -dysuria, -hematuria MUSCULOSKELETAL: -back pain, -neck pain SKIN: -rash or skin lesions. HEMATOLOGIC: -easy bruising or bleeding. LYMPHATIC: -swollen, enlarged glands. NEUROLOGICAL: -altered mental status or loss of consciousness, -headache, - neurologic symptoms PSYCHIATRIC: -anxiety, -depression. ALL OTHER SYSTEMS REVIEWED AND NEGATIVE. Physical Exam - Vital signs Vitals: Temp Pulse Pulse Ox 98.3 F 57 L 98 09/28/17 12:34 09/28/17 12:34 09/28/17 12:34 - Notes Notes: Reviewed vital signs and nursing note as charted by RN. CONSTITUTIONAL: Alert and oriented and responds appropriately to questions, nice elderly male, poor of hearing HEAD: Normocephalic; atraumatic EYES: PERRL; Conjunctivae clear, sclerae non-icteric ENT: normal nose; no rhinorrhea; moist mucous membranes; pharynx without lesions noted NECK: Supple without meningismus; non-tender; no cervical lymphadenopathy CARD: Regular rate and rhythm; no murmurs, no clicks, no rubs, no gallops; symmetric distal pulses RESP: Normal chest excursion without splinting or tachypnea; breath sounds clear and equal bilaterally ABD/GI: Normal bowel sounds; non-distended; soft, no tenderness to palpation BACK: The back appears normal and is non-tender to palpation EXT: Normal ROM in all joints; non-tender to palpation; no cyanosis, no effusions, no edema SKIN: Normal color for age and race; warm; dry; good turgor; capillary refill < 2 seconds; no acute lesions noted NEURO: .Cranial nerves 3-12 intact. Motor strength 5/5 bilaterally. Sensation intact to touch bilaterally. No pronator drift. Finger to nose intact bilaterally PSYCH: The patient's mood and manner are appropriate. Grooming and personal hygiene are appropriate. Course - Re-evaluation Re-evalutation: 09/28/17 14:21 86-year-old gentleman here for evaluation of a fall Fall appears to be mechanical, no obvious signs of injury Patient has absolutely normal neurologic exam, no obvious signs of trauma My suspicion for intracranial injury or subdural hematoma is very low, family agree We will send patient back to assisted living facility. - Vital Signs Vital signs: Temp Pulse Resp BP Pulse Ox 98.3 F 57 L 17 101/64 98 09/28/17 12:34 09/28/17 12:34 09/28/17 12:38 09/28/17 12:38 09/28/17 12:34 Discharge - Discharge Clinical Impression: Fall, Evaluation by medical service required Condition: Stable Disposition: HOME, SELF-CARE Additional Instructions: You have been diagnosed with a fall today, you do not have any obvious signs of injury You have been seen and examined by medical provider who decided not to pursue any further imaging or evaluation This has been discussed with family, and family agree with disposition and plan Please bring patient back if he develops worsening symptoms such as fevers, chills, headache, chest pain or shortness of breath. Referrals: LUI DUTTA MD [Primary Care Provider] - Follow up as needed
[2017-09-28 15:57] VITALS: BP 112/67
== END 2017-09-28 15:00 | disposition home or self-care (01) ==
LOC: ER 12:30
DX: Z04.3 Encounter for examination and observation following other accident (principal); W01.0XXA Fall on same level from slipping, tripping and stumbling without subsequent striking against object, initial encounter; Y92.129 Unspecified place in nursing home as the place of occurrence of the external cause; F03.90 Unspecified dementia, unspecified severity, without behavioral disturbance, psychotic disturbance, mood disturbance, and anxiety; I50.9 Heart failure, unspecified; E78.00 Pure hypercholesterolemia, unspecified; I11.0 Hypertensive heart disease with heart failure; I13.11 Hypertensive heart and chronic kidney disease without heart failure, with stage 5 chronic kidney disease, or end stage renal disease; N18.6 End stage renal disease; Z96.653 Presence of artificial knee joint, bilateral
CPT/HCPCS: 99284

== ENCOUNTER 2017-10-03 17:55 | Emergency (ER) | payer MEDICARE ==
--- NOTE | 2017-10-03 19:31 | ER Document Report ---
ED General - General Mode of Arrival: Medic Information source: Patient TRAVEL OUTSIDE OF THE [place] IN LAST 30 DAYS: No <AMELIA VALENZUELA - Last Filed: 10/03/17 20:08> <BREANNA HARRISON - Last Filed: 10/03/17 23:06> - General Chief Complaint: Fall Stated Complaint: FALL Time Seen by Provider: 10/03/17 19:20 Notes: Patient is a 86-year-old male history of dementia, CHF, hypertension presents to the emergency department via EMS from [facility] due to frequent falls. Patient states that he has been falling a lot recently with his last fall being 2-3 days ago. He states he is unsure why he is here but believes he was sent to here to have xrays done. Patient denies any pain at bedside. There were no signs of trauma to the head per a physical exam on 09/28/2017, however there is an old bruise to the left zygomatic arch region. (AMELIA VALENZUELA) - Related Data Allergies/Adverse Reactions: No Known Allergies Allergy (Verified 09/28/17 12:33) Past Medical History - General Information source: [facility], [facility] - Social History Smoking Status: Unknown if Ever Smoked Family History: None, Reviewed & Not Pertinent Patient has suicidal ideation: No Patient has homicidal ideation: No - Past Medical History Cardiac Medical History: Reports: Hx Congestive Heart Failure, Hx Hypercholesterolemia, Hx Hypertension Pulmonary Medical History: Neurological Medical History: Denies: Hx Seizures Renal/ Medical History: Reports: Hx End Stage Renal Disease. Denies: Hx Peritoneal Dialysis Musculoskeltal Medical History: Reports Hx Arthritis, Reports Hx Gout Psychiatric Medical History: Reports: Hx Dementia Denies: Hx Depression Past Surgical History: Reports: Hx Orthopedic Surgery - knee replacement b/l. Denies: Hx Open Heart Surgery - Immunizations Hx Diphtheria, Pertussis, Tetanus Vaccination: Yes <AMELIA VALENZUELA - Last Filed: 10/03/17 20:08> Review of Systems - Review of Systems Constitutional: No symptoms reported EENT: No symptoms reported Cardiovascular: No symptoms reported Respiratory: No symptoms reported Gastrointestinal: No symptoms reported Genitourinary: No symptoms reported Male Genitourinary: No symptoms reported Musculoskeletal: See HPI Skin: No symptoms reported Hematologic/Lymphatic: No symptoms reported Neurological/Psychological: No symptoms reported -: Yes All other systems reviewed and negative <AMELIA VALENZUELA - Last Filed: 10/03/17 20:08> Physical Exam - General General appearance: Appears well, Alert In distress: None - HEENT Head: Normocephalic, Other - old bruise to the left zygomatic arch, minimal swelling. Eyes: Normal Conjunctiva: Normal Extraocular movements intact: Yes Pupils: PERRL Mucous membranes: Normal Neck: Normal - Respiratory Respiratory status: No respiratory distress Chest status: Nontender - Extremities General upper extremity: Normal ROM General lower extremity: Normal ROM Hip: Other - No pain in the hips with movement of the BLE - Psychological Associated symptoms: Normal affect, Normal mood - Skin Skin Temperature: Warm Skin Moisture: Dry <AMELIA VALENZUELA - Last Filed: 10/03/17 20:08> <BREANNA HARRISON - Last Filed: 10/03/17 23:06> - Vital signs Vitals: Temp Pulse Resp BP Pulse Ox 98.7 F 63 18 132/74 H 97 10/03/17 18:22 10/03/17 18:22 10/03/17 18:22 10/03/17 18:22 10/03/17 18:22 - Neurological Notes: Alert and oriented at bedside. (AMELIA VALENZUELA) Course <AMELIA VALENZUELA - Last Filed: 10/03/17 20:08> - Diagnostic Test Radiology reviewed: Image reviewed, Reports reviewed - Chest x-ray shows chronic lung changes with cardiomegaly and nothing acute. CT of the head shows chronic microvascular ischemic changes with nothing acute. <BREANNA HARRISON - Last Filed: 10/03/17 23:06> - Re-evaluation Re-evalutation: 10/03/17 22:35 Patient's UA does not show any suggestion of infection. (BREANNA HARRISON) - Vital Signs Vital signs: Temp Pulse Resp BP Pulse Ox 98.7 F 63 18 132/74 H 97 10/03/17 18:22 10/03/17 18:22 10/03/17 18:22 10/03/17 18:22 10/03/17 18:22 - Laboratory Laboratory results interpreted by me: 10/03/17 21:23 Urine Ascorbic Acid 40 H Discharge <AMELIA VALENZUELA - Last Filed: 10/03/17 20:08> <BREANNA HARRISON - Last Filed: 10/03/17 23:06> - Discharge Clinical Impression: Falls frequently Contusion of face Qualifiers: Encounter type: initial encounter Qualified Code(s): S00.83XA - Contusion of other part of head, initial encounter Condition: Stable Disposition: HOME, SELF-CARE Additional Instructions: There were no significant injuries detected on your evaluation today. You may benefit from using a walker. Follow-up with your doctor tomorrow to discuss your frequent falls. RETURN TO THE EMERGENCY ROOM IF ANY NEW OR WORSENING SYMPTOMS. Scribe Attestation: 10/03/17 23:06 I personally performed the services described in the documentation, reviewed and edited the documentation which was dictated to the scribe in my presence, and it accurately records my words and actions. (BREANNA HARRISON) Scribe Documentation - Scribe Written by Benitoibe:: Jacqueline Crow, 10/03/2017 19:34 acting as scribe for :: Juancho <AMELIA VALENZUELA - Last Filed: 10/03/17 20:08>
--- NOTE | 2017-10-03 20:22 | RADIOLOGY REPORT (SQ) ---
EXAM DESCRIPTION: CHEST 2 VIEWS COMPLETED DATE/TIME: 10/03/2017 8:12 pm REASON FOR STUDY: Left zygomatic contusion/MULTIPLE FALLS COMPARISON: 08/21/2016 EXAM PARAMETERS: NUMBER OF VIEWS: two views TECHNIQUE: Digital Frontal and Lateral radiographic views of the chest acquired. RADIATION DOSE: NA LIMITATIONS: none FINDINGS: LUNGS AND PLEURA: Mild chronic interstitial changes are seen in the lung bases. There is no acute infiltrate or effusion. There is no mass. MEDIASTINUM AND HILAR STRUCTURES: No masses or contour abnormalities. HEART AND VASCULAR STRUCTURES: Cardiomegaly with no failure. BONES: No acute findings. HARDWARE: None in the chest. OTHER: No other significant finding. IMPRESSION: Cardiomegaly and chronic lung changes with no acute cardiopulmonary disease. TECHNICAL DOCUMENTATION: JOB ID: [id number] [employer]- All Rights Reserved Reading location - IP/workstation name: [email or web address]
--- NOTE | 2017-10-03 20:46 | RADIOLOGY REPORT (SQ) ---
EXAM DESCRIPTION: CT HEAD WITHOUT COMPLETED DATE/TIME: 10/03/2017 8:29 pm REASON FOR STUDY: Left zygomatic contusion COMPARISON: 07/03/2016 TECHNIQUE: Axial images acquired through the brain without intravenous contrast. Images reviewed wi th bone, brain and subdural windows. Additional sagittal and coronal reconstructions were generated. Images stored on PACS. All CT scanners at this facility use dose modulation, iterative reconstruction, and/or weight based d osing when appropriate to reduce radiation dose to as low as reasonably achievable (ALARA). [facility]: Dose Right [facility]: CareDose [facility]: Dose Right [facility]: Teradose 4D [facility]: Smart optionsXpress RADIATION DOSE: CT Rad equipment meets quality standard of care and radiation dose reduction techniq ues were employed. CTDIvol: 53.2 mGy. DLP: 964 mGy-cm. mGy. LIMITATIONS: None. FINDINGS: VENTRICLES: Prominent ventricles secondary to involutional atrophy. CEREBRUM: Mild cortical atrophy. No masses. No hemorrhage. No midline shift. No evidence for acut e infarction. Areas of low density in the white matter most likely chronic small vessel ischemic stone ges. CEREBELLUM: No masses. No hemorrhage. No alteration of density. No evidence for acute infarction. EXTRAAXIAL SPACES: No fluid collections. No masses. ORBITS AND GLOBE: No intra- or extraconal masses. Normal contour of globe without masses. CALVARIUM: No fracture. PARANASAL SINUSES: No fluid or mucosal thickening. SOFT TISSUES: No mass or hematoma. OTHER: No other significant finding. IMPRESSION: CHRONIC MICROVASCULAR ISCHEMIA. NO ACUTE IMAGING FINDINGS IN THE BRAIN. EVIDENCE OF ACUTE STROKE: NO. COMMENT: Quality ID # [id number]: Final reports with documentation of one or more dose reduction techniques (e.g., Automated exposure control, adjustment of the mA and/or kV according to patient size, use of iterative reconstruction technique) TECHNICAL DOCUMENTATION: JOB ID: [id number] [employer]- All Rights Reserved Reading location - IP/workstation name: [email or web address]
[2017-10-03 21:55] LABS: APPEARANCE,URINE CLEAR; BILIRUBIN,URINE NEGATIVE (NEGATIVE); COLOR,URINE YELLOW; GLUCOSE, URINE NEGATIVE (NEGATIVE); KETONES,URINE NEGATIVE (NEGATIVE); LEUKOCYTE ESTERASE,URINE NEGATIVE (NEGATIVE); NITRITE,URINE NEGATIVE (NEGATIVE); PROTEIN,URINE NEGATIVE (NEGATIVE); URINE SPECIFIC GRAVITY 1.015; UROBILINOGEN,URINE NEGATIVE mg/dL (<2.0)
[2017-10-03 23:22] VITALS: BP 140/95
== END 2017-10-04 00:16 | disposition home or self-care (01) ==
LOC: ER 17:55
DX: S00.83XA Contusion of other part of head, initial encounter (principal); Z91.81 History of falling; W18.30XA Fall on same level, unspecified, initial encounter; Y92.129 Unspecified place in nursing home as the place of occurrence of the external cause; F03.90 Unspecified dementia, unspecified severity, without behavioral disturbance, psychotic disturbance, mood disturbance, and anxiety; I50.9 Heart failure, unspecified; I11.0 Hypertensive heart disease with heart failure; E78.00 Pure hypercholesterolemia, unspecified; Z96.653 Presence of artificial knee joint, bilateral
CPT/HCPCS: 70450; 71046; 81001; 99285

== ENCOUNTER 2017-10-09 01:25 | Emergency (ER) | payer MEDICARE ==
--- NOTE | 2017-10-09 01:49 | ER Document Report ---
ED General - General Stated Complaint: FALL Time Seen by Provider: 10/09/17 01:27 Notes: Patient is an 86-year-old male who presents with complaint of a fall. He is seen in the ER frequently for falls. [facility] He has a cane and a walker. Patient says he got to the bathroom and did not want to use his walker but says only a few steps to the bathroom. He says he went for his cane and fell. He has some blood coming from the right ear. He denies any pain. Denies any loss conscious. He has no other complaints at this time. TRAVEL OUTSIDE OF THE [place] IN LAST 30 DAYS: No - Related Data Allergies/Adverse Reactions: No Known Allergies Allergy (Verified 09/28/17 12:33) Past Medical History - Social History Smoking Status: Unknown if Ever Smoked Frequency of alcohol use: None Drug Abuse: None Family History: None, Reviewed & Not Pertinent - Past Medical History Cardiac Medical History: Reports: Hx Congestive Heart Failure, Hx Hypercholesterolemia, Hx Hypertension Pulmonary Medical History: Neurological Medical History: Denies: Hx Seizures Renal/ Medical History: Reports: Hx End Stage Renal Disease. Denies: Hx Peritoneal Dialysis Musculoskeltal Medical History: Reports Hx Arthritis, Reports Hx Gout Psychiatric Medical History: Reports: Hx Dementia Denies: Hx Depression Past Surgical History: Reports: Hx Orthopedic Surgery - knee replacement b/l. Denies: Hx Open Heart Surgery - Immunizations Hx Diphtheria, Pertussis, Tetanus Vaccination: Yes Review of Systems - Review of Systems Notes: My Normal Review Basic REVIEW OF SYSTEMS: CONSTITUTIONAL : Denies fever, chills, or sweats. Denies recent illness. RESPIRATORY: Denies cough, cold, or chest congestion. Denies shortness of breath, difficulty breathing, or wheezing. GASTROINTESTINAL: Denies abdominal pain. Denies nausea, vomiting, or diarrhea. Denies constipation. Last BM: GENITOURINARY: Denies difficulty urinating, painful urination, burning, frequency, or blood in urine. FEMALE GENITOURINARY: Denies vaginal bleeding, abnormal or irregular periods. LMP: MUSCULOSKELETAL: Denies any acute musculoskeletal pain. SKIN: Denies rash or skin lesions. NEUROLOGICAL: Denies altered mental status or loss of consciousness. Denies headache. Denies weakness or paralysis or loss of use of either side. Denies problems with gait or speech. Denies sensory or motor loss. ALL OTHER SYSTEMS REVIEWED AND NEGATIVE. Physical Exam - Vital signs Vitals: Resp Pulse Ox 16 98 10/09/17 01:34 10/09/17 01:34 - Notes Notes: General Appearance: Well nourished, alert, cooperative, no acute distress, no obvious discomfort. Appearing. Vitals: reviewed, See vital signs table. Head: Old bruising on the left side of his face from previous fall. No new bruising or swelling to the face. Eyes: PERRL, EOMI, patient is an erythematous right conjunctival. He has some yellowish type matting around the eyelids as well. No redness or swelling into the eyelids or around the orbit. Mouth: No decreasd moisture Ear: Some dried blood coming from the right ear. Patient's has no obvious laceration in the ear. Cannot fully visualize the TM at this time. Left ear is atraumatic. Throat: No tonsillar inflammation, No airway obstruction, No lymphadenopathy Neck: Supple, no neck tenderness, Back: No tenderness palpation of thoracic or lumbar spine. No step-offs or deformities. No bruising to the back. Lungs: No wheezing, No rales, No rhonci, No accessory muscle use, good air exchange bilaterally. Heart: Normal rate, Regular rythm, No murmur, no rub Abdomen: Normal BS, soft, No rigidity, No abdominal tenderness, No guarding, no rebound, no bruising Extremities: strength 5/5 in all extremities, good pulses in all extremities, no swelling or tenderness in the extremities, no edema. Skin: warm, dry, appropriate color, no rash Neuro: speech clear, oriented x 2, normal affect, responds appropriately to questions. Cranial nerves II through XII are intact. Equal strength in all 4 extremities. Course - Re-evaluation Re-evalutation: 10/09/17 03:53 Patient has some blood from the right ear. I cleaned the blood and there is no further active bleeding on exam. I did scan his head because of blood from the ear. CT scan of the head did not show any concerning findings. Pelvis x-ray was negative. He has no significant pain on exam. He looks well and answers questions appropriately. Does have some redness to the conjunctivae of the right eye and does have some yellowish type matting consistent with conjunctivitis. I will place him on Polytrim eyedrops. He is to return to ER if he has headache, vomiting, or appears unwell in any way. [facility]. Dictation of this chart was performed using voice recognition software; therefore, there may be some unintended grammatical errors. - Vital Signs Vital signs: Temp Pulse Resp BP Pulse Ox 16 97 10/09/17 03:00 10/09/17 03:00 - EKG Interpretation by Me Additional EKG results interpreted by me: 10/09/17 01:47 EKG is reviewed and interpreted by me. EKG shows sinus rhythm with rate around 70 bpm. Patient has a left bundle branch block which is unchanged comparison to his old EKG from August 29, 2017. No new concerning ischemic changes. QRS duration is prolonged. QTc interval is slightly prolonged. Discharge - Discharge Clinical Impression: Fall Qualifiers: Encounter type: initial encounter Qualified Code(s): W19.XXXA - Unspecified fall, initial encounter Conjunctivitis Qualifiers: Conjunctivitis type: acute Acute conjunctivitis type: unspecified Laterality: right Qualified Code(s): H10.31 - Unspecified acute conjunctivitis, right eye Condition: Good Disposition: HOME, SELF-CARE Additional Instructions: Please return to the ER if Mr. Llanes has severe headache, vomiting, or appears unwell. Please have Mr. Llanes use his walker when getting up or walk with assistance from staff. He has what appears to be conjunctivitis of the right eye. Please apply 1 drop of the Polytrim in his right ye every 4 hours for 7 days. Have his doctor reevaluate him in 2-3 days.
--- NOTE | 2017-10-09 02:38 | RADIOLOGY REPORT (SQ) ---
EXAM DESCRIPTION: CT HEAD WITHOUT CLINICAL HISTORY: 86 years Male, trauma COMPARISON: 4..18 TECHNIQUE: No contrast. Coronal and sagittal reformat. This exam was performed according to our departmental dose-optimization program, which includes automated exposure control, adjustment of the mA and/or kV according to patient size and/or use of iterative reconstruction technique. FINDINGS: Mild bilateral maxillary mucosal thickening. Moderate ethmoid mucosal thickening. Atherosclerosis. Mild white matter microangiopathy. Mild ex vacuo ventricular/cisternal enlargement, chronic. No hemorrhage or infarct. No mass, mass effect, or midline shift. Extra-axial structures appear otherwise grossly intact. Impression: No acute findings.
--- NOTE | 2017-10-09 02:48 | RADIOLOGY REPORT (SQ) ---
EXAM DESCRIPTION: PELVIS AP CLINICAL HISTORY: 86 years, Male, trauma COMPARISON: None. NUMBER OF VIEWS: AP, two images LIMITATIONS: Rotation FINDINGS: Moderate bone demineralization. Atherosclerosis. Moderate disc desiccation. Likely developmental variant of the right ischio pubic ramus. Bones, joints, and soft tissues of PELVIS AP appear otherwise grossly intact. IMPRESSION: No acute findings.
[2017-10-09] MEDS ORDERED: POLYMYXIN B SULFATE/TMP OPH SOLN (10 ML/ER DISP) OD PRN (03:23)
[2017-10-09 05:22] VITALS: BP 123/65
--- NOTE | 2017-10-10 07:55 | EKG REPORT ---
SEVERITY:- ABNORMAL ECG - SINUS RHYTHM LEFT BUNDLE BRANCH BLOCK INFERIOR Q WAVES, POSSIBLY DUE TO LBBB : Confirmed by: Josef Bear MD 10-Oct-2017 07:54:30
== END 2017-10-09 05:25 | disposition home or self-care (01) ==
LOC: ER 01:25
DX: S09.91XA Unspecified injury of ear, initial encounter (principal); W19.XXXA Unspecified fall, initial encounter; Y93.89 Activity, other specified; Y92.121 Bathroom in nursing home as the place of occurrence of the external cause; H10.31 Unspecified acute conjunctivitis, right eye; I10 Essential (primary) hypertension; I44.7 Left bundle-branch block, unspecified
CPT/HCPCS: 93005; 99285; 72170; 70450; J3490

== ENCOUNTER 2017-10-09 13:44 | Emergency (ER) | payer MEDICARE ==
--- NOTE | 2017-10-09 15:56 | ER Document Report ---
ED General - General Stated Complaint: BLEEDING FROM EAR Time Seen by Provider: 10/09/17 13:58 Mode of Arrival: Medic Information source: Patient, [facility] Records Cannot obtain history due to: Dementia Notes: 86-year-old male history of dementia presents with complaints of bleeding from his right ear. Patient was seen here earlier today after mechanical fall. Patient denies any complaints TRAVEL OUTSIDE OF THE [place] IN LAST 30 DAYS: No - HPI Onset: Just prior to arrival Onset/Duration: Sudden Quality of pain: No pain Severity: Mild Pain Level: Denies Associated symptoms: None Exacerbated by: Denies Relieved by: Denies Similar symptoms previously: Yes Recently seen / treated by doctor: Yes - Related Data Allergies/Adverse Reactions: No Known Allergies Allergy (Verified 09/28/17 12:33) Past Medical History - Social History Smoking Status: Never Smoker Cigarette use (# per day): No Chew tobacco use (# tins/day): No Smoking Education Provided: No Family History: None, Reviewed & Not Pertinent - Past Medical History Cardiac Medical History: Reports: Hx Congestive Heart Failure, Hx Hypercholesterolemia, Hx Hypertension Pulmonary Medical History: Neurological Medical History: Denies: Hx Seizures Renal/ Medical History: Reports: Hx End Stage Renal Disease. Denies: Hx Peritoneal Dialysis Musculoskeltal Medical History: Reports Hx Arthritis, Reports Hx Gout Psychiatric Medical History: Reports: Hx Dementia Denies: Hx Depression Past Surgical History: Reports: Hx Orthopedic Surgery - knee replacement b/l. Denies: Hx Open Heart Surgery - Immunizations Hx Diphtheria, Pertussis, Tetanus Vaccination: Yes Review of Systems - Review of Systems Notes: REVIEW OF SYSTEMS: CONSTITUTIONAL : Denies fever, chills, or sweats. Denies recent illness. EENT: Bleeding from right ear CARDIOVASCULAR: Denies chest pain. Denies palpitations or racing or irregular heart beat. Denies ankle edema. RESPIRATORY: Denies cough, cold, or chest congestion. Denies shortness of breath, difficulty breathing, or wheezing. GASTROINTESTINAL: Denies abdominal pain or distention. Denies nausea, vomiting , or diarrhea. Denies blood in vomitus, stools, or per rectum. Denies black, tarry stools. Denies constipation. GENITOURINARY: Denies difficulty urinating, painful urination, burning, frequency, blood in urine, or discharge. MUSCULOSKELETAL: Denies back or neck pain or stiffness. Denies joint pain or swelling. SKIN: Denies rash, lesions or sores. HEMATOLOGIC : Denies easy bruising or bleeding. LYMPHATIC: Denies swollen, enlarged glands. NEUROLOGICAL: Denies confusion or altered mental status. Denies passing out or loss of consciousness. Denies dizziness or lightheadedness. Denies headache. Denies weakness or paralysis or loss of use of either side. Denies problems with gait or speech. Denies sensory loss, numbness, or tingling. Denies seizures. PSYCHIATRIC: Denies anxiety or stress. Denies depression, suicidal ideation, or homicidal ideation. ALL OTHER SYSTEMS REVIEWED AND NEGATIVE. Dictation was performed using [employer] voice recognition software PHYSICAL EXAMINATION: GENERAL: Well-appearing, well-nourished and in no acute distress. HEAD: Atraumatic, normocephalic. EYES: Pupils equal round and reactive to light, extraocular movements intact, sclera anicteric, conjunctiva are normal. ENT: There is a possible ruptured tympanic membrane blood in ear NECK: Normal range of motion, supple without lymphadenopathy LUNGS: Breath sounds clear to auscultation bilaterally and equal. No wheezes rales or rhonchi. HEART: Regular rate and rhythm without murmurs ABDOMEN: Soft, nontender, nondistended abdomen. No guarding, no rebound. No masses appreciated. Musculoskeletal: Normal range of motion, no pitting or edema. No cyanosis. NEUROLOGICAL: Cranial nerves grossly intact. Normal speech, normal gait. Normal sensory, motor exams PSYCH: Normal mood, normal affect. SKIN: Warm, Dry, normal turgor, no rashes or lesions noted. Physical Exam - Vital signs Vitals: Temp Pulse Resp BP Pulse Ox 98.8 F 68 20 126/52 H 97 10/09/17 14:02 10/09/17 14:02 10/09/17 14:02 10/09/17 14:02 10/09/17 14:02 Course - Re-evaluation Re-evalutation: 10/09/17 19:54 Given concerns for ruptured tympanic membrane after a fall I spoke with the radiologist there is no basilar skull fracture noted on CT head therefore I performed a CT orbit which again noted no fracture, I do believe the ear injury is separate, a wick was placed to stop some of the bleeding patient will be started on antibiotics and given an ENT specialist follow-up with Very strict return precautions have been provided, Given that patient states the care facility I do hope they will follow-up with these instructions so that he may see an ENT specialist After performing a Medical Screening Examination, I estimate there is LOW risk for malignant otitis media, mastoiditis, MENINGITIS, or ACUTE CORONARY SYNDROME , thus I consider the discharge disposition reasonable. I have reevaluated this patient multiple times and no significant life threatening changes are noted. The patient and I have discussed the diagnosis and risks, and we agree with discharging home to follow-up on an outpatient basis with the understanding that symptoms and presentations can change. We also discussed returning to the Emergency Department immediately if new or worsening symptoms occur. We have discussed the symptoms which are most concerning (e.g., high fevers, confusion) that necessitate immediate return. - Vital Signs Vital signs: Temp Pulse Resp BP Pulse Ox 98.8 F 68 20 126/52 H 97 10/09/17 17:25 10/09/17 17:25 10/09/17 17:25 10/09/17 17:25 10/09/17 17:25 - Diagnostic Test Radiology reviewed: Image reviewed - CTR but notes no acute fracture, Reports reviewed Discharge - Discharge Clinical Impression: Otitis media, serous, TM rupture Condition: Stable Disposition: HOME, SELF-CARE Instructions: Perforated Eardrum ([facility]) Prescriptions: Cephalexin Monohydrate [Keflex 500 mg Capsule] 500 mg PO Q6H 10 Days capsule Referrals: LORNA MERCEDES DO [ASSOCIATE] - Follow up tomorrow
--- NOTE | 2017-10-09 17:13 | RADIOLOGY REPORT (SQ) ---
EXAM DESCRIPTION: CT ORBIT/SELLA WITHOUT COMPLETED DATE/TIME: 10/09/2017 4:34 pm REASON FOR STUDY: bleeding ear, fall bleeding ear, fall , question basilar skull fracture COMPARISON: CT brain earlier today, CT brain 10/03/2017 TECHNIQUE: Noncontrasted thin section axial images through the temporal bones and skull base were ob tained and reviewed at bone windows and bone algorithm with coronal and sagittal reconstructions. All CT scanners at this facility use dose modulation, iterative reconstruction, and/or weight based d osing when appropriate to reduce radiation dose to as low as reasonably achievable (ALARA). [facility]: Dose Right [facility]: CareDose [facility]: Dose Right [facility]: Teradose 4D [facility]: [employer] RADIATION DOSE: CT Rad equipment meets quality standard of care and radiation dose reduction techniq ues were employed. CTDIvol: 30.4 mGy. DLP: 885 mGy-cm. mGy. LIMITATIONS: None. FINDINGS: RIGHT SIDE: EXTERNAL AUDITORY CANAL: Gauze packing in the right external auditory canal with hemorrhage or debris present TYMPANIC MEMBRANE: Blood clot along the tympanic membrane. The clinical disruption of the tympanic m embrane identified by is not definitely identified radiographically OSSICLES AND MIDDLE EAR CAVITY: Normal ossicles. Small amount of hemorrhage or fluid in the middle e ar. INNER EAR STRUCTURES: Normal vestibule and cochlea. Normal aqueducts. INTERNAL AUDITORY CANAL: Normal bony canal without narrowing or widening. No calcified or ossified m asses. TEMPOROMANDIBULAR JOINT: Normal. MASTOID AIR CELLS: Small amount of fluid in the inferior mastoid air cells. A temporal bone fracture is not identified. LEFT SIDE: EXTERNAL AUDITORY CANAL: Widely patent. TYMPANIC MEMBRANE: No masses, thickening or medial retraction. OSSICLES AND MIDDLE EAR CAVITY: Normal ossicles. No middle ear masses or fluid. INNER EAR STRUCTURES: Normal vestibule and cochlea. Normal aqueducts. INTERNAL AUDITORY CANAL: Normal bony canal without narrowing or widening. No calcified or ossified m asses. TEMPOROMANDIBULAR JOINT: Normal. MASTOID AIR CELLS: Clear. CENTRAL SKULL BASE: No basilar skull fracture is identified. LIMITED VIEW OF PARANASAL SINUSES IN THE FIELD OF VIEW: Mucous membrane thickening in the sphenoid si nus IMPRESSION: No basilar skull fracture is identified TECHNICAL DOCUMENTATION: JOB ID: [id number] Quality ID # [id number]: Final reports with documentation of one or more dose reduction techniques (e.g., Au tomated exposure control, adjustment of the mA and/or kV according to patient size, use of iterative reconstruction technique) 2010 [employer]- All Rights Reserved Reading location - IP/workstation name: [email or web address]
[2017-10-09 20:43] VITALS: BP 143/76
== END 2017-10-09 21:45 | disposition home or self-care (01) ==
LOC: ER 13:44
DX: H65.91 Unspecified nonsuppurative otitis media, right ear (principal); H72.91 Unspecified perforation of tympanic membrane, right ear; H92.21 Otorrhagia, right ear; F03.90 Unspecified dementia, unspecified severity, without behavioral disturbance, psychotic disturbance, mood disturbance, and anxiety; W19.XXXA Unspecified fall, initial encounter; I10 Essential (primary) hypertension
CPT/HCPCS: 70480; 99284

== ENCOUNTER 2017-10-10 18:58 | Emergency (ER) | payer MEDICARE ==
--- NOTE | 2017-10-10 20:10 | ER Document Report ---
ED General - General Chief Complaint: Fall Stated Complaint: fall Time Seen by Provider: 10/10/17 19:17 Mode of Arrival: Medic Notes: Patient is a 86-year-old white male who presents to the emergency department from [facility] facility with possible seizure-like activity according to the staff. Staff reported that patient had generalized shaking that lasted proximately 20 seconds. Per prison staff patient returned to his baseline immediately after the shaking incident. Patient has no history of similar episodes and no history of any seizures. Patient has been seen here multiple times last few days for falls and was seen yesterday for a perforated left tympanic membrane. Patient's family is at bedside and states the patient' s mental status is his normal, patient does have mild dementia. Patient is hard of hearing, denies any pain or complaints and is asking why he needs to be here again. TRAVEL OUTSIDE OF THE [place] IN LAST 30 DAYS: No - Related Data Allergies/Adverse Reactions: No Known Allergies Allergy (Verified 09/28/17 12:33) Past Medical History - General Information source: [facility] Records - Social History Smoking Status: Unknown if Ever Smoked Family History: None, Reviewed & Not Pertinent - Past Medical History Cardiac Medical History: Reports: Hx Congestive Heart Failure, Hx Hypercholesterolemia, Hx Hypertension Pulmonary Medical History: Neurological Medical History: Denies: Hx Seizures Renal/ Medical History: Reports: Hx End Stage Renal Disease. Denies: Hx Peritoneal Dialysis Musculoskeltal Medical History: Reports Hx Arthritis, Reports Hx Gout Psychiatric Medical History: Reports: Hx Dementia Denies: Hx Depression Past Surgical History: Reports: Hx Orthopedic Surgery - knee replacement b/l. Denies: Hx Open Heart Surgery - Immunizations Hx Diphtheria, Pertussis, Tetanus Vaccination: Yes Review of Systems - Review of Systems Constitutional: No symptoms reported EENT: See HPI Cardiovascular: No symptoms reported Respiratory: No symptoms reported Gastrointestinal: No symptoms reported Genitourinary: No symptoms reported Male Genitourinary: No symptoms reported Musculoskeletal: No symptoms reported Skin: No symptoms reported Hematologic/Lymphatic: No symptoms reported Neurological/Psychological: No symptoms reported Physical Exam - Vital signs Vitals: Temp Pulse Resp BP Pulse Ox 98.2 F 65 17 109/48 L 97 10/10/17 20:55 10/10/17 20:55 10/10/17 20:55 10/10/17 20:55 10/10/17 20:55 - Notes Notes: PHYSICAL EXAMINATION: GENERAL: Well-nourished and in no acute distress. Hard of hearing. HEAD: Atraumatic, normocephalic. EYES: Pupils equal round and reactive to light, extraocular movements intact, sclera anicteric, conjunctiva are normal. ENT: Nares patent, oropharynx clear without exudates. Moist mucous membranes. Previous Right TM rupture noted, no active bleeding. NECK: Supple without lymphadenopathy LUNGS: Breath sounds clear to auscultation bilaterally and equal. No wheezes rales or rhonchi. HEART: Regular rate and rhythm without murmurs ABDOMEN: Soft, nontender, nondistended abdomen. No guarding, no rebound. No masses appreciated. Musculoskeletal: Normal range of motion, no pitting or edema. No cyanosis. NEUROLOGICAL: Cranial nerves grossly intact. Normal speech, normal gait. Normal sensory, motor exams PSYCH: Normal mood, normal affect. SKIN: Warm, Dry, normal turgor, no rashes or lesions noted, bruise noted to left cheek. Course - Re-evaluation Re-evalutation: Patient was seen in the emergency department yesterday for a mechanical fall had a CT head done which was negative, was discharged home and then returned the same day for bleeding from the right ear. On his second visit to the emergency department yesterday a CT was done of his orbit to rule out basilar skull fracture, his scan was negative so patient was discharged home with the wick in his right ear. custodial staff sent patient in today for generalized shaking for approximately 20 seconds. Patient did not have any episode of incontinence and return to his normal baseline immediately after the episode of shaking with no postictal period. Patient has no history of any seizures. Family at bedside states that patients mental status is normal. Will order an EKG, CBC and comprehensive metabolic panel to rule out any electrolyte abnormalities. Family member at bedside now reports that patient had a fever of 101 at approximately 530 this evening. This was not reported previously. Will add on a chest x-ray and urinalysis at this time to rule out any infectious source. There is no evidence at this time of urinary tract infection or pneumonia. Patient's vital signs remained stable throughout visit patient was afebrile. Due to patient's reported temperature of 101 prior to arrival, will cover patient with doxycycline as this will provide coverage for either genitourinary or respiratory causes of infection as WBc is elevated.. - Vital Signs Vital signs: Temp Pulse Resp BP Pulse Ox 99.3 F 69 20 131/76 H 94 10/11/17 03:45 10/11/17 03:45 10/11/17 03:45 10/11/17 03:45 10/11/17 03:45 - Laboratory Result Diagrams: 10/10/17 20:15 10/10/17 20:15 Laboratory results interpreted by me: 10/10/17 10/10/17 10/10/17 20:15 20:15 22:26 WBC 14.5 H RBC 3.27 L Hgb 10.0 L Hct 30.5 L RDW 14.7 H Lymphocytes % 10.2 L Monocytes % 13.2 H Absolute Neutrophils 11.0 H Absolute Monocytes 1.9 H BUN 47 H Creatinine 3.09 H Est GFR ( Amer) 23 L Est GFR (Non-Af Amer) 19 L Glucose 122 H AST 11 L ALT 16 L Total Protein 5.7 L Albumin 3.0 L Ur Leukocyte Esterase TRACE H Urine Ascorbic Acid 40 H Discharge - Discharge Clinical Impression: Fever Qualifiers: Fever type: unspecified Qualified Code(s): R50.9 - Fever, unspecified Leukocytosis, unspecified Qualifiers: Leukocytosis type: unspecified Qualified Code(s): D72.829 - Elevated white blood cell count, unspecified Condition: Stable Disposition: HOME, SELF-CARE Additional Instructions: Fever Fever is the body's reaction to infection. Fever can also occur with illnesses that create fever-producing substances in the body. By itself, fever is not harmful. It helps the body fight invading germs. We are more concerned with: (1) What's causing the fever? (2) How can we keep you more comfortable until the fever goes away? Early in an illness, symptoms are often so vague that a diagnosis can't be made. If the doctor hasn't identified a clear cause for your fever, you will probably develop new symptoms within the next two days. Contact the doctor if you develop severe worsening headache, rash, chest pain, cough with yellow or green sputum, difficulty breathing, abdominal pain, or other new symptoms. There is no reason to treat a fever if you're comfortable. If the fever is causing aches, headache, and fatigue, you can treat it with ibuprofen (Advil , Nuprin, etc) or acetaminophen (Tylenol). Follow the directions on the bottle. Get plenty of liquids (three quarts per day). Rest. Physical work or sports will raise the temperature higher and make you feel much worse. Dress lightly. If you're chilling, this means the temperature is trying to go higher. Take ibuprofen or acetaminophen. When you feel sweaty and "feverish" the temperature is coming down. If the fever doesn't go away within two days or if you become more ill, call the doctor or return at once for re-examination. Please take antibiotics as prescribed. The selected antibiotic will provide coverage in case this fever is caused by a respiratory or urinary source although we do not see any evidence at this time. Follow-up with your primary care doctor in the next 3-5 days. Return to the emergency department if you develop abdominal pain, fever not controlled with acetaminophen, vomiting, altered mental status or any other symptoms that is concerning to you. Prescriptions: RX: Doxycycline Hyclate 100 mg PO BID #14 capsule
[2017-10-10 20:39] LABS: ABSOLUTE BASOPHILS # (AUTO) 0.1 10^3/uL (0.0-0.2); ABSOLUTE EOSINOPHILS # (AUTO) 0.1 10^3/uL (0.0-0.6); ABSOLUTE LYMPHOCYTES (AUTO) 1.5 10^3/uL (0.5-4.7); ABSOLUTE MONOCYTES (AUTO) 1.9 10^3/uL (0.1-1.4); BASOPHILS % (AUTO) 0.4 % (0-2); EOSINOPHILS % (AUTO) 0.5 % (0-6); HEMATOCRIT 30.5 % (37.9-51.0); LYMPHOCYTES % (AUTO) 10.2 % (13-45); MEAN CORPUSCULAR HEMOGLOBIN 30.6 pg (27.0-33.4); MEAN CORPUSCULAR HGB CONC 32.9 g/dL (32.0-36.0); MEAN CORPUSCULAR VOLUME 93 fl (80-97); MONOCYTES % (AUTO) 13.2 % (3-13); PLATELET COUNT 169 10^3/uL (150-450); RED BLOOD COUNT 3.27 10^6/uL (4.35-5.55); RED CELL DISTRIBUTION WIDTH 14.7 % (11.5-14.0); SEGMENTED NEUTROPHILS % (AUTO) 75.7 % (42-78); TOTAL CELLS COUNTED % (AUTO) 100 %; WHITE BLOOD COUNT 14.5 10^3/uL (4.0-10.5)
[2017-10-10 20:53] LABS: BLOOD UREA NITROGEN 47 mg/dL (7-20); CALCIUM 9.2 mg/dL (8.4-10.2); GLUCOSE 122 mg/dL (75-110)
[2017-10-10 20:54] LABS: ALANINE AMINOTRANSFERASE 16 U/L (21-72); ALKALINE PHOSPHATASE 53 U/L (38-126); ANION GAP 14 (5-19); ASPARTATE AMINO TRANSFERASE 11 U/L (17-59); BILIRUBIN,DIRECT 0.3 mg/dL (0.0-0.4); BILIRUBIN,TOTAL 0.6 mg/dL (0.2-1.3); CARBON DIOXIDE 24 mmol/L (22-30); CHLORIDE 105 mmol/L (98-107); POTASSIUM 4.2 mmol/L (3.6-5.0); SODIUM 142.9 mmol/L (137-145); TOTAL PROTEIN 5.7 g/dL (6.3-8.2)
--- NOTE | 2017-10-10 22:31 | RADIOLOGY REPORT (SQ) ---
EXAM DESCRIPTION: CHEST SINGLE VIEW COMPLETED DATE/TIME: 10/10/2017 10:01 pm REASON FOR STUDY: fever, leukocytosis COMPARISON: 10/03/2017 EXAM PARAMETERS: NUMBER OF VIEWS: One view. TECHNIQUE: Single frontal radiographic view of the chest acquired. RADIATION DOSE: NA LIMITATIONS: None. FINDINGS: LUNGS AND PLEURA: No acute opacities, masses or pneumothorax. No pleural effusion. MEDIASTINUM AND HILAR STRUCTURES: Stable. HEART AND VASCULAR STRUCTURES: Stable cardiomegaly. BONES: No acute findings. HARDWARE: None in the chest. OTHER: No other significant finding. IMPRESSION: NO ACUTE RADIOGRAPHIC FINDING IN THE CHEST. TECHNICAL DOCUMENTATION: JOB ID: [id number] [place]-72 2010 [employer]- All Rights Reserved Reading location - IP/workstation name: [email or web address]
[2017-10-10 22:49] LABS: APPEARANCE,URINE SLIGHTLY-CLOUDY; BILIRUBIN,URINE NEGATIVE (NEGATIVE); COLOR,URINE YELLOW; GLUCOSE, URINE NEGATIVE (NEGATIVE); KETONES,URINE NEGATIVE (NEGATIVE); LEUKOCYTE ESTERASE,URINE TRACE (NEGATIVE); NITRITE,URINE NEGATIVE (NEGATIVE); PROTEIN,URINE NEGATIVE (NEGATIVE); URINE SPECIFIC GRAVITY 1.019; UROBILINOGEN,URINE NEGATIVE mg/dL (<2.0)
[2017-10-10] MEDS ORDERED: DOXYCYCLINE HYCLATE 100 MG TABLET PO ONE (23:45)
[2017-10-11 03:45] VITALS: BP 131/76
--- NOTE | 2017-10-11 07:46 | EKG REPORT ---
SEVERITY:- ABNORMAL ECG - SINUS RHYTHM LEFT BUNDLE BRANCH BLOCK INFERIOR Q WAVES, POSSIBLY DUE TO LBBB : Confirmed by: Josef Bear MD 11-Oct-2017 07:45:44
== END 2017-10-11 03:45 | disposition home or self-care (01) ==
LOC: ER 18:58
DX: D72.829 Elevated white blood cell count, unspecified (principal); R50.9 Fever, unspecified; R25.1 Tremor, unspecified
CPT/HCPCS: 93005; 99285; 36415; 85025; 80053; 81001; 71045; 93010; A9270